=== PATIENT | female | born 1935 | race Hispanic/Latino ===

== ENCOUNTER 2018-05-14 09:56 | Emergency (ER) | payer MEDICARE ==
[2018-05-14 10:09] VITALS: O2SAT 98
--- NOTE | 2018-05-14 12:16 | C.PDOC ---
History Of Present Illness 82 y/o female, presents to the ED complaining of pain to the right knee along with swelling to the right lower leg, worsening for the past few days. States she fell onto her knee at home about 4 days ago. Was able to ambulate initially, but now swelling has worsened. Patient also has a history of severe peripheral vascular disease and non-healing venous stasis ulcers to bilateral feet. She follows with podiatry regularly and had an appointment today, which she missed in order to come here. Otherwise she denies any head trauma, neck pain, back pain, chest pain, SOB, nausea, vomiting, fever, or chills. Time Seen by Provider: 05/14/18 10:29 Chief Complaint (Nursing): Lower Extremity Problem/Injury History Per: Patient History/Exam Limitations: no limitations Onset/Duration Of Symptoms: Days Current Symptoms Are (Timing): Still Present Past Medical History Reviewed: Historical Data, Nursing Documentation, Vital Signs Vital Signs: Last Vital Signs Temp 97.9 F 05/14/18 10:08 Pulse 81 05/14/18 10:08 Resp 18 05/14/18 10:08 BP 146/84 05/14/18 10:08 Pulse Ox 98 05/14/18 10:08 - Medical History PMH: Crohn's Disease (ULCERATIVE COLITIS), Fractures (rt hip fracture s/p fall; had sx done at ), Malignancy (COLON) Denies: Chronic Kidney Disease Other PMH: Peripheral vascular disease - [facility] Procedures LAPAROSCOPIC CHOLECYSTECTOMY (08/30/13) LAPAROSCOPIC ROBOTIC ASSISTED PROCEDURE (08/30/13) OPEN REDUC-INT FIX FEMUR (06/16/13) PACKED CELL TRANSFUSION (06/16/13) Family History: States: No Known Family Hx - Social History Hx Tobacco Use: No Hx Alcohol Use: No Hx Substance Use: No - Immunization History Hx Tetanus Toxoid Vaccination: No Hx Influenza Vaccination: Yes Hx Pneumococcal Vaccination: Yes Review Of Systems Except As Marked, All Systems Reviewed And Found Negative. Constitutional: Negative for: Fever, Chills Cardiovascular: Negative for: Chest Pain Respiratory: Negative for: Shortness of Breath Gastrointestinal: Negative for: Nausea, Vomiting Musculoskeletal: Positive for: Leg Pain (right knee pain, right calf pain + swelling), Other (Increased difficulty walking secondary to swelling). Negative for: Neck Pain Skin: Positive for: Lesions (chronic ulcers to bilateral feet) Neurological: Negative for: Weakness, Numbness, Headache, Other (head trauma) Physical Exam - Physical Exam Appears: Non-toxic, No Acute Distress Skin: Warm, Dry Head: Atraumatic, Normacephalic Eye(s): bilateral: Normal Inspection, PERRL, EOMI Oral Mucosa: Moist Neck: Normal ROM Chest: Symmetrical Cardiovascular: Rhythm Regular, No Murmur Respiratory: Normal Breath Sounds, No Accessory Muscle Use, No Rhonchi, No Wheezing Gastrointestinal/Abdominal: Soft, No Tenderness, No Distention Extremity: Capillary Refill (less than 2 sec), Swelling (Edema throughout the right calf with tenderness, and scattered petechiae), Other (Right knee appears swollen, warm, and tender to palpation; Rabia boot dressings to bilateral feet) Pulses: Left Dorsalis Pedis: Normal, Right Dorsalis Pedis: Normal Neurological/Psych: Oriented x3, Normal Speech ED Course And Treatment O2 Sat by Pulse Oximetry: 98 (RA) Pulse Ox Interpretation: Normal Medical Decision Making Medical Decision Making: Impression: RLE swelling and pain, s/p fall last week Plan: --right knee x-ray --doppler study, RLE Patient also requesting to have dressings changed to feet, as she missed podiatry appt today. Discussed with patient's naval science teacher, Dr. Bal Gratn [phone] who recommends dressings be changed in the ED. Paged podiatry resident for dressing change and consult. 12:41 Doppler US is (-) for DVT. Awaiting podiatry resident. Disposition Counseled Patient/Family Regarding: Studies Performed, Diagnosis, Need For Followup, Rx Given - Disposition Referrals: Jhonatan Marin III, MD [Staff Provider] - Disposition: HOME/ ROUTINE Disposition Time: 14:43 Condition: GUARDED Additional Instructions: Rerst, elevate and ice the affected leg ass indicated. Take the Naprosyn for pain. Take with food. Follow up with your doctor and with Orthopedics. Prescriptions: Naproxen [Naprosyn] 1 tab PO BID PRN #25 tab PRN Reason: Pain Naproxen [Naprosyn] 1 tab PO BID PRN #25 tab PRN Reason: Pain Instructions: Knee Sprain (DC) Forms: [employer] (Japanese), General Discharge Instructions - POA Present On Arrival: None - Clinical Impression Clinical Impression: Joint pain, Joint swelling, Right knee sprain - Scribe Statement The provider has reviewed the documentation as recorded by the Vonda Goodman Provider Attestation: All medical record entries made by the Vonda were at my direction and personally dictated by me. I have reviewed the chart and agree that the record accurately reflects my personal performance of the history, physical exam, medical decision making, and the department course for this patient. I have also personally directed, reviewed, and agree with the discharge instructions and disposition.
--- NOTE | 2018-05-14 13:21 | CP.PCM.CON ---
History of Present Illness - History of Present Illness History of Present Illness: Podiatry - Dr. Bowser 82 year old female patient seen in evaluated in ED at the request for podiatry consultation concerning bilateral ankle venous stasis ulcerations. Patient presented to ED due to a fall she sustained approximately 4 days ago, injuring her right knee; states she was able to ambulate with minimal pain however over the past 4 days swelling and pain have worsened which prompted her to present to ED. Patient was supposed to follow up with her outside dairy laboratory technician today to change her dressings but missed her appointment in order to present to ED for right knee evaluation. Patient states she has been seeing her dairy laboratory technician for unna boot dressing changes for the past 6 months. Patient states she has had the wounds to both ankles on and off for a few years, which she believes are improving. Patient reports mild pain to right ankle wound; denies any pain to left ankle wound. Patient has kept the dressings to both feet clean/dry/intact since her last podiatry appointment. Patient states she is scheduled to follow up with her dairy laboratory technician on Sunday for her next dressing change. Denies n/v/f/d/c/sob/gomez/cp. Review of Systems - Review of Systems All systems: reviewed and no additional remarkable complaints except (as per HPI) Past Patient History - Past Medical History & Family History Past Medical History?: Yes - Past Social History Smoking Status: Never Smoked - CARDIAC Hx Cardiac Disorders: No - PULMONARY Hx Respiratory Disorders: No - NEUROLOGICAL Hx Neurological Disorder: No - HEENT Hx HEENT Problems: No - RENAL Hx Chronic Kidney Disease: No - ENDOCRINE/METABOLIC Hx Endocrine Disorders: No - HEMATOLOGICAL/ONCOLOGICAL Hx Cancer: Yes - INTEGUMENTARY Hx Dermatological Problems: No - MUSCULOSKELETAL/RHEUMATOLOGICAL Hx Fractures: Yes (rt hip fracture s/p fall; had sx done at ) - GASTROINTESTINAL Hx Crohn's Disease: Yes (ULCERATIVE COLITIS) - GENITOURINARY/GYNECOLOGICAL Hx Incontinence: Yes - PSYCHIATRIC Hx Substance Use: No - SURGICAL HISTORY Hx Orthopedic Surgery: Yes (RIGHT HIP) - ANESTHESIA Hx Anesthesia: Yes Hx Anesthesia Reactions: No Hx Malignant Hyperthermia: No Meds Home Medications: Home Medication List Medication Instructions Recorded Confirmed Type Naproxen [Naprosyn] 1 tab PO BID PRN #25 tab 05/14/18 Rx Naproxen [Naprosyn] 1 tab PO BID PRN #25 tab 05/14/18 Rx Allergies/Adverse Reactions: Allergies Allergy/AdvReac Type Severity Reaction Status Date / Time lidocaine Allergy Verified 05/14/18 10:07 Physical Exam - Constitutional Appears: Well, Non-toxic, No Acute Distress - Extremities Exam Additional comments: VASC: DP pulses weakly palpable 1/4 b/l. PT pulses nonpalpable b/l. CFT <3 seconds to all digits. Temperature gradient cool to cool b/l. No edema noted. NEURO: Gross sensation intact bilaterally. DERM: 4 x 3 cm ulceration noted to medial ankle b/l - ulcers are noted to have a 100% granular base with minimal erythema periwound; serous drainage present; no purulence; weeping present; no fluctuance; no undermining; no tunneling. Venous stasis dermatitis present to b/l legs. ORTHO: Pain on palpation right medial ankle wound. - Neurological Exam Neurological exam: Alert - Psychiatric Exam Psychiatric exam: Normal Affect, Normal Mood Results - Vital Signs Recent Vital Signs: Last Vital Signs Temp 97.9 F 05/14/18 10:08 Pulse 81 05/14/18 10:08 Resp 18 05/14/18 10:08 BP 146/84 05/14/18 10:08 Pulse Ox 98 05/14/18 12:42 Assessment & Plan - Assessment and Plan (Free Text) Assessment: 82F with venous stasis ulcerations b/l medial ankles, stable Plan: Patient seen and evaluated Discussed with attending, Dr. Bowser Wounds cleansed with saline and dressed with xeroform, DSD, SHREYAS Advised patient to follow up with her dairy laboratory technician this Sunday for unna boot dressing change Wounds appear stable at this time Pain control per ED Stable for dc per podiatric standpoint Thank you for the consult
--- NOTE | 2018-05-14 13:47 | RAD ---
Date of service: 05/14/2018 PROCEDURE: Right Knee Radiographs. HISTORY: fall, knee pain and swelling COMPARISON: None. FINDINGS: BONES: Current study reveals the inferior aspect of a intramedullary fixation kirsten within the distal left femur all diaphysis and Bushra metaphysis which is fixed distally by 2 fully threaded transversely oriented fixation screws. Hardware appears intact without evidence of loosening or infection.. No evidence of acute displaced fracture nor dislocation. Mild diffuse demineralization felt to be present. JOINTS: Joint spaces relatively preserved. JOINT EFFUSION: Small suprapatellar joint effusion is felt to be present. OTHER FINDINGS: Mild diffuse edema-infiltration changes of the subcutaneous tissues-nonspecific. IMPRESSION: No evidence of acute displaced fracture nor dislocation. Mild diffuse demineralization. Distal of aspect of an intra medullary fixation kirsten and fixation screws within the distal femur is intact of without evidence of hardware failure. Mild diffuse edema/infiltration changes subcutaneous tissues-nonspecific; rule out the sequela of trauma, infection such as cellulitis or underlying vascular etiology.
[2018-05-14 15:38] VITALS: BP 156/81; PULSE 84; RESP 16; TEMP 98.1
--- NOTE | 2018-05-15 12:06 | VASCLAB ---
Date of service: 05/14/2018 PROCEDURE: Right Lower Extremity Venous Duplex Exam. HISTORY: Calf swelling, pain. PRIORS: None. TECHNIQUE: Right common femoral, femoral, popliteal and posterior tibial, peroneal and great saphenous veins were evaluated. Flow was assessed with color Doppler, compressibility, assessment of phasic flow and augmentation response. Report prepared by MEENA Nagel FINDINGS: RIGHT: 1. Common Femoral Vein: 1.1. Compressibility - Fully compressible: Thrombus - None: Flow - Phasic: Augmentation -Normal: Reflux - None. 2. Femoral Vein: 2.1. Compressibility - Fully compressible: Thrombus - None: Flow - Phasic: Augmentation -Normal: Reflux - None. 3. Popliteal Vein: 3.1. Compressibility - Fully compressible: Thrombus - None: Flow - Phasic: Augmentation -Normal: Reflux - None. 4. Posterior Tibial Vein: 4.1. Compressibility - Fully compressible: Thrombus - None: Flow - Phasic: Augmentation -Normal: Reflux - None. 5. Peroneal Vein: 5.1. Compressibility - Fully compressible: Thrombus - None: Flow - Phasic: Augmentation -Normal: Reflux - None. 6. Great Saphenous Vein: 6.1. Compressibility - Fully compressible: Thrombus -None: Flow - Phasic: Augmentation - Normal: Reflux - None. OTHER FINDINGS: IMPRESSION: No evidence of deep or superficial vein thrombosis of the right lower extremity with excellent venous flow. Normal valve function noted of the right side. Normal venous flow noted in the left common femoral vein.
== END 2018-05-14 16:36 | disposition home or self-care (01) ==
LOC: C.ER 09:56
DX: S83.91XA Sprain of unspecified site of right knee, initial encounter (principal); W18.30XA Fall on same level, unspecified, initial encounter; Y92.009 Unspecified place in unspecified non-institutional (private) residence as the place of occurrence of the external cause; L97.329 Non-pressure chronic ulcer of left ankle with unspecified severity; L97.319 Non-pressure chronic ulcer of right ankle with unspecified severity

== ENCOUNTER 2018-06-10 12:50 | Emergency (ER) | payer MEDICARE ==
--- NOTE | 2018-06-10 14:04 | C.PDOC ---
History Of Present Illness 82 year old female with a history of PVD presents to the emergency department with complaints of bilateral foot pain. Patient states that she normally gets evaluated at a foot and ankle clinic in [place] for chronic foot ulcers but has been unable to go for dressing changes due to the holidays. patient denies fever and chills. pt does not endorse any back pain. when asked about what she mentioned in traige. she states "she always has back pain" Time Seen by Provider: 06/10/18 13:02 Chief Complaint (Nursing): Lower Extremity Problem/Injury History Per: Patient History/Exam Limitations: no limitations Onset/Duration Of Symptoms: Other (2 weeks) Current Symptoms Are (Timing): Still Present - Ankle/Foot Description Of Injury: Other (chronic ulcers) Past Medical History Reviewed: Historical Data, Nursing Documentation, Vital Signs Vital Signs: Last Vital Signs Temp 97.6 F 06/10/18 12:56 Pulse 79 06/10/18 12:56 Resp 16 06/10/18 12:56 BP 135/72 06/10/18 12:56 Pulse Ox 100 06/10/18 12:56 - Medical History PMH: Crohn's Disease (ULCERATIVE COLITIS), Fractures (rt hip fracture s/p fall; had sx done at ), Malignancy (COLON) Denies: Chronic Kidney Disease Other PMH: Peripheral Vascular Disease - [facility] Procedures LAPAROSCOPIC CHOLECYSTECTOMY (08/30/13) LAPAROSCOPIC ROBOTIC ASSISTED PROCEDURE (08/30/13) OPEN REDUC-INT FIX FEMUR (06/16/13) PACKED CELL TRANSFUSION (06/16/13) Family History: States: Unknown Family Hx - Social History Hx Tobacco Use: No Hx Alcohol Use: No Hx Substance Use: No - Immunization History Hx Tetanus Toxoid Vaccination: No Hx Influenza Vaccination: Yes Hx Pneumococcal Vaccination: Yes Review Of Systems Except As Marked, All Systems Reviewed And Found Negative. Constitutional: Negative for: Fever, Chills Musculoskeletal: Positive for: Foot Pain (bilaterally) Physical Exam - Physical Exam Appears: Non-toxic, No Acute Distress Skin: Normal Color, Warm, Dry Head: Atraumatic, Normacephalic Eye(s): bilateral: Normal Inspection, PERRL, EOMI Neck: Normal, Supple Chest: Symmetrical, No Tenderness Cardiovascular: Rhythm Regular, No Murmur Respiratory: Normal Breath Sounds, No Rales, No Rhonchi, No Wheezing Extremity: Normal ROM, Other (ulcers to the feet bilaterally, chronic appearing no purlent dc) Pulses: Left Dorsalis Pedis: Normal, Right Dorsalis Pedis: Normal Neurological/Psych: Oriented x3, Normal Speech, Normal Cognition ED Course And Treatment O2 Sat by Pulse Oximetry: 100 (RA) Pulse Ox Interpretation: Normal Medical Decision Making Medical Decision Making: here for podiatriy eval. states seen previouysly for similar. seen by podiatry. will eval pt. no back pain 320: seen by podiatry dressing cahgned pt will f/u outpt Disposition - Disposition Referrals: [facility] [Outside] [facility] [Outside] Podiatry Clinic [Outside] Disposition: HOME/ ROUTINE Disposition Time: 15:24 Condition: STABLE Additional Instructions: follow up with residence leasing agent. return to er with any worsening symptoms or concerns. Instructions: Pressure Sores, Pressure Sores (DC) Forms: [employer] ([place] Islander) - Clinical Impression Clinical Impression: Chronic ulcer of ankle - Scribe Statement The provider has reviewed the documentation as recorded by the Scribe (Jevon Ring) Provider Attestation: All medical record entries made by the Scribe were at my direction and personally dictated by me. I have reviewed the chart and agree that the record accurately reflects my personal performance of the history, physical exam, medical decision making, and the department course for this patient. I have also personally directed, reviewed, and agree with the discharge instructions and disposition.
[2018-06-10 15:11] VITALS: BP 146/79; PULSE 78; RESP 18; TEMP 97.9
[2018-06-10 15:24] VITALS: O2SAT 100
== END 2018-06-10 17:01 | disposition home or self-care (01) ==
LOC: C.ER 12:50
DX: L97.329 Non-pressure chronic ulcer of left ankle with unspecified severity (principal); L97.319 Non-pressure chronic ulcer of right ankle with unspecified severity

== ENCOUNTER 2018-07-05 08:34 | Inpatient (IN) | payer MEDICARE ==
--- NOTE | 2018-07-05 10:26 | C.PDOC ---
History Of Present Illness 82 y/o female pt otherwise well presents to the ER sent by Dr. Corey for management of non-healing ulcers on her b/l ankles. Pt denies DM, smoking and is not aware of any peripheral vascular diseases. Pt reports she is not in pain but her feet are now starting to cause her problems. Time Seen by Provider: 07/05/18 08:50 Chief Complaint (Nursing): Medical Clearance History Per: Patient History/Exam Limitations: no limitations Onset/Duration Of Symptoms: Days Current Symptoms Are (Timing): Still Present Past Medical History Reviewed: Historical Data, Nursing Documentation, Vital Signs Vital Signs: Last Vital Signs Temp 97.3 F L 07/05/18 08:44 Pulse 76 07/05/18 08:44 Resp 18 07/05/18 08:44 BP 138/82 07/05/18 08:44 Pulse Ox 100 07/05/18 08:44 - Medical History PMH: Crohn's Disease (ULCERATIVE COLITIS), Fractures (rt hip fracture s/p fall; had sx done at ), Malignancy (COLON) - [facility] Procedures LAPAROSCOPIC CHOLECYSTECTOMY (08/30/13) LAPAROSCOPIC ROBOTIC ASSISTED PROCEDURE (08/30/13) OPEN REDUC-INT FIX FEMUR (06/16/13) PACKED CELL TRANSFUSION (06/16/13) Family History: States: Unknown Family Hx - Social History Hx Tobacco Use: No Hx Alcohol Use: No Hx Substance Use: No - Immunization History Hx Tetanus Toxoid Vaccination: No Hx Influenza Vaccination: Yes Hx Pneumococcal Vaccination: No Review Of Systems Except As Marked, All Systems Reviewed And Found Negative. Constitutional: Negative for: Other (DM, smoking, unaware of any peripheral vascular dieases ) Musculoskeletal: Positive for: Other (non-healing ulcer on b/l ankles ) Physical Exam - Physical Exam Appears: Non-toxic, No Acute Distress, Other (frail and cachetic ) Skin: Warm, Dry Head: Normacephalic Eye(s): bilateral: Normal Inspection Chest: Symmetrical Cardiovascular: Rhythm Regular Respiratory: Normal Breath Sounds Gastrointestinal/Abdominal: Soft, No Tenderness, Other (scaphoid belly ) Back: Other (kyphosis ) Extremity: Normal ROM (x4), No Deformity, No Swelling, Other (b/l knee down: scaly, dry, red and flaky skin; deep non-healing ulcer to both medial ankles; pulse difficult to palpate ) Neurological/Psych: Oriented x3, Normal Speech, Normal Motor, Normal Sensation ED Course And Treatment - Laboratory Results Result Diagrams: 07/05/18 10:33 07/05/18 11:24 ECG: Interpreted By Me, Viewed By Me ECG Rhythm: Sinus Rhythm ECG Interpretation: Normal Interpretation Of ECG: LVH; no ST elevation Rate From EC O2 Sat by Pulse Oximetry: 100 (RA) Pulse Ox Interpretation: Normal Medical Decision Making Medical Decision Making: Plans: -- EKG -- chem labs -- blood work Discuss case with podiatry resident who will see her. Consult with Dr. Bowser. Pending admittance to hospital Disposition Discussed With Dr.: Toni Johnston Doctor Will See Patient In The: Hospital Counseled Patient/Family Regarding: Studies Performed, Diagnosis - Disposition Disposition: HOSPITALIZED Disposition Time: 10:55 Condition: STABLE - POA Present On Arrival: None - Clinical Impression Clinical Impression: Skin lesion, Cellulitis, Non healing left heel wound, Non-healing ulcer of right ankle - Scribe Statement The provider has reviewed the documentation as recorded by the Vonda Hogan Do Provider Attestation: All medical record entries made by the Scribe were at my direction and personally dictated by me. I have reviewed the chart and agree that the record accurately reflects my personal performance of the history, physical exam, medical decision making, and the department course for this patient. I have also personally directed, reviewed, and agree with the discharge instructions and disposition. Decision To Admit - Pt Status Changed To: Hospital Disposition Of: Inpatient - Admit Certification Admit to Inpatient:: After my assessment, the patient will require hospitalization for at least two midnights. This is because of the severity of symptoms shown, intensity of services needed, and/or the medical risk in this patient being treated as an outpatient. - InPatient: Physician Admission Certification: I certify that this patient requires 2 or m ore midnights of care for the following reason:: non healing ulcer, may need OR - . Bed Request Type: Regular Admitting Physician: Toni Johnston Patient Diagnosis: Skin lesion, Cellulitis, Non healing left heel wound, Non-healing ulcer of right ankle
[2018-07-05 10:38] LABS: BASO # 0.1 K/uL (0.0-0.2); BASO % 0.8 % (0.0-2.0); EOS # 0.2 K/uL (0.0-0.7); EOS % 2.3 % (0.0-4.0); HEMOGLOBIN 12.5 g/dL (11.0-16.0); LYMPH # 1.3 K/uL (1.0-4.3); LYMPH % 14.7 % (20.0-40.0); MEAN CELL VOLUME 95.5 fL (81.0-99.0); MEAN CORPUSCULAR HEMOGLOBIN 31.5 pg (27.0-31.0); MONO # 0.4 K/uL (0.0-0.8); MONO % 4.4 % (0.0-10.0); NEUT # 6.6 K/uL (1.8-7.0); NEUT % 77.8 % (50.0-75.0); RBC 3.96 Mil/uL (3.80-5.20); RED CELL DISTRIBUTION WIDTH 13.9 % (11.5-14.5); WHITE BLOOD COUNT 8.5 K/uL (4.8-10.8)
[2018-07-05 10:43] LABS: INR 1.1; PROTHROMBIN TIME 11.5 SECONDS (9.7-12.2)
[2018-07-05 11:42] LABS: ALB/GLOB RATIO 1.4 (1.0-2.1); ALBUMIN 3.9 g/dL (3.5-5.0); ALT/SGPT 16 U/L (9-52); AST/SGOT 32 U/L (14-36); BLOOD UREA NITROGEN 15 mg/dL (7-17); CALCIUM 9.1 mg/dl (8.6-10.4); GFR NON-AFRICAN AMERICAN > 60
--- NOTE | 2018-07-05 12:02 | CP.PCM.CON ---
History of Present Illness - History of Present Illness History of Present Illness: Podiatry Consult Note for Dr. Bowser 82F with no known PMH seen in ED for b/l LE wounds. Patient states that she has had the wounds for over a year and has seen multiple podiatrists for woundcare. Most recently she saw Dr. Corey who refers her here today for further evaluation. 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 She denies any malodor or drainage from the wounds but does not that they are often red. She is AAO x 3 and NAD. She denies any further pedal complaints at this time. Denies any recent N/V/F/C/CP/SOB Review of Systems - Review of Systems All systems: reviewed and no additional remarkable complaints except Review of Systems: as per HPI Past Patient History - Past Medical History & Family History Past Medical History?: Yes - Past Social History Smoking Status: Former Smoker - CARDIAC Hx Cardiac Disorders: No - PULMONARY Hx Respiratory Disorders: No - NEUROLOGICAL Hx Neurological Disorder: No - HEENT Hx HEENT Problems: No - ENDOCRINE/METABOLIC Hx Endocrine Disorders: No - HEMATOLOGICAL/ONCOLOGICAL Hx Cancer: Yes - INTEGUMENTARY Hx Dermatological Problems: No - MUSCULOSKELETAL/RHEUMATOLOGICAL Hx Fractures: Yes (rt hip fracture s/p fall; had sx done at ) - GASTROINTESTINAL Hx Crohn's Disease: Yes (ULCERATIVE COLITIS) - GENITOURINARY/GYNECOLOGICAL Hx Genitourinary Disorders: Yes Hx Incontinence: Yes - PSYCHIATRIC Hx Substance Use: No - SURGICAL HISTORY Hx Surgeries: Yes Hx Orthopedic Surgery: Yes (RIGHT HIP) Other/Comment: STOMACH RESECTION - ANESTHESIA Hx Anesthesia: Yes Hx Anesthesia Reactions: No Hx Malignant Hyperthermia: No Meds Allergies/Adverse Reactions: Allergies Allergy/AdvReac Type Severity Reaction Status Date / Time lidocaine Allergy Verified 07/05/18 08:49 Physical Exam - Constitutional Appears: Well, Non-toxic, No Acute Distress - Extremities Exam Additional comments: LE focused exam Vasc: DP/PT pulses faintly palpable to b/l LE. Skin temperature warm to warm from proximal to distal. CFT < 3 seconds to all digits. No edema noted b/l Neuro: Epicritic and protective sensation grossly intact b/l Derm: Left leg- Diffuse erythema noted to left leg and foot with multiple small scabs and wounds noted circumferentially around the leg. 2 cm x 4 cm x 0.1 cm ulceration noted to medial malleolus consistent with venous stasis ulceration. Wound base is fibrogranular with minimal serous drainage appreciated. No malodor present. Right leg- Diffuse erythema noted to right leg and foot with multiple small scabs and wounds noted circumferentially around the leg. 2 cm x 4 cm x 0.1 cm ulceration noted to medial malleolus consistent with venous stasis ulceration. Wound base is fibrogranular with an approximately 1 cm x 1 cm patch of gree n/yellow fibrous tissue. Minimal serous drainage appreciated. No malodor present. No tracking, tunneling, undermining or probe to bone appreciated at either ulceration site MSK: No pain on palpation of either ulceration site. ROM to all major joints WNL given age and body habitus. MMT to all major muscle groups WNL given age and body habitus - Neurological Exam Neurological exam: Alert, Oriented x3 - Psychiatric Exam Psychiatric exam: Normal Affect, Normal Mood Results - Vital Signs Recent Vital Signs: Last Vital Signs Temp 97.9 F 07/05/18 11:23 Pulse 72 07/05/18 11:23 Resp 18 07/05/18 11:23 BP 170/70 H 07/05/18 11:23 Pulse Ox 100 07/05/18 11:23 - Labs Result Diagrams: 07/05/18 10:33 07/05/18 11:24 Labs: Laboratory Results - last 24 hr 07/05/18 07/05/18 07/05/18 10:33 10:33 11:24 WBC 8.5 D RBC 3.96 Hgb 12.5 Hct 37.8 MCV 95.5 D MCH 31.5 H MCHC 33.0 RDW 13.9 Plt Count 229 MPV 11.0 Neut % (Auto) 77.8 H Lymph % (Auto) 14.7 L [place] % (Auto) 4.4 Eos % (Auto) 2.3 Baso % (Auto) 0.8 Neut # (Auto) 6.6 Lymph # (Auto) 1.3 [place] # (Auto) 0.4 Eos # (Auto) 0.2 Baso # (Auto) 0.1 PT 11.5 INR 1.1 Sodium 136 Potassium 4.1 Chloride 99 Carbon Dioxide 32 H Anion Gap 9 L BUN 15 Creatinine 0.5 L Est GFR ( Amer) > 60 Est GFR (Non-Af Amer) > 60 Random Glucose 119 H D Calcium 9.1 Total Bilirubin 0.5 AST 32 ALT 16 Alkaline Phosphatase 128 H Total Protein 6.7 Albumin 3.9 Globulin 2.8 Albumin/Globulin Ratio 1.4 Assessment & Plan - Assessment and Plan (Free Text) Assessment: 82F seen in ED for bilateral venous stasis ulcerations to medial malleolus Plan: Patient seen and evaluated Plan discussed with Dr. Bowser Afebrile, absent leukocytosis Wound cx of right ankle taken: pending Infectious disease consult placed Vascular consult placed Wounds both dressed with Telfa, ABD, DSD, SHREYAS No plan for surgical intervention at this time Podiatry will continue to follow while patient in house - Date & Time Date: 07/05/18 Time: 12:13
[2018-07-05 12:05] VITALS: RESP 20
--- NOTE | 2018-07-05 13:04 | CP.PCM.HP ---
History of Present Illness - History of Present Illness History of Present Illness: Medicine History and Physical Exam Note for Dr. Johnston Ms. Montague is an 82-year-old F with PMH of non-healing ulcer of the ankle lory aterally and cellulitis presents with "worsening foot problems and swelling in both of my feet." Patient states it has been increasingly difficult for her to walk and "get around." Patient reports she has dealt with non-healing ulcers in the past, and she has been followed by a physician on [facility] (Patient does not recall name of physician) for a couple of months where she gets wound care regularly. Furthermore, the Patient and was recently seen by Dr. Corey's who sent her to the ED today to get her feet evaluated. Patient admits to mild swelling and non-healing ulcers, however Patient otherwise denies bleeding, oozing, itching, chest pain, shortness of breath, numbness/tingling in lower extremity, weakness, fatigue, headache, nausea, vomiting, fever and/or chills. Note: Patient walks with cane. PMH: Patient denies (Patient was seen here in 2013 for abdominal pain and was diagnosed with pancreatitis) PSxH: R hip surgery (2013) Social History: Patient denies, tobacco, ETOH, and/or recreational drugs Patient lives in senior citizen home Meds: Patient denies Allergies: Lidocaine Present on Admission - Present on Admission Any Indicators Present on Admission: No History of DVT/PE: No History of Uncontrolled Diabetes: No Urinary Catheter: No Decubitus Ulcer Present: No Review of Systems - Constitutional Constitutional: absent: Anorexia, Chills, Fatigue, Fever, Frequent Falls, Headache, Malaise, Night Sweats - EENT Eyes: absent: Loss of Vision Nose/Mouth/Throat: absent: Nasal Congestion, Sore Throat - Cardiovascular Cardiovascular: Leg Ulcers (bilateral ankle ulcers). absent: Chest Pain, Dyspnea, Lightheadedness - Respiratory Respiratory: absent: Cough, Dyspnea, Wheezing - Gastrointestinal Gastrointestinal: absent: Abdominal Pain, Diarrhea, Nausea, Vomiting - Genitourinary Genitourinary: absent: Change in Urinary Stream, Difficulty Urinating, Dysuria - Musculoskeletal Musculoskeletal: As Per HPI - Neurological Neurological: absent: Abnormal Gait, Dizziness, Numbness, Focal Weakness, Memory Loss, Syncope - Psychiatric Psychiatric: absent: Anxiety Past Patient History - Past Medical History & Family History Past Medical History?: Yes - Past Social History Smoking Status: Former Smoker - CARDIAC Hx Cardiac Disorders: No - PULMONARY Hx Respiratory Disorders: No - NEUROLOGICAL Hx Neurological Disorder: No - HEENT Hx HEENT Problems: No - ENDOCRINE/METABOLIC Hx Endocrine Disorders: No - HEMATOLOGICAL/ONCOLOGICAL Hx Cancer: Yes - INTEGUMENTARY Hx Dermatological Problems: No - MUSCULOSKELETAL/RHEUMATOLOGICAL Hx Fractures: Yes (rt hip fracture s/p fall; had sx done at ) - GASTROINTESTINAL Hx Crohn's Disease: Yes (ULCERATIVE COLITIS) - GENITOURINARY/GYNECOLOGICAL Hx Genitourinary Disorders: Yes Hx Incontinence: Yes - PSYCHIATRIC Hx Substance Use: No - SURGICAL HISTORY Hx Surgeries: Yes Hx Orthopedic Surgery: Yes (RIGHT HIP) Other/Comment: STOMACH RESECTION - ANESTHESIA Hx Anesthesia: Yes Hx Anesthesia Reactions: No Hx Malignant Hyperthermia: No Meds Allergies/Adverse Reactions: Allergies Allergy/AdvReac Type Severity Reaction Status Date / Time lidocaine Allergy Verified 07/05/18 08:49 Physical Exam - Constitutional Appears: Non-toxic, No Acute Distress, Cachectic - Head Exam Head Exam: ATRAUMATIC, NORMAL INSPECTION, NORMOCEPHALIC - Eye Exam Eye Exam: EOMI - ENT Exam ENT Exam: Mucous Membranes Moist, Normal Exam - Neck Exam Neck exam: Positive for: Full Rom, Normal Inspection. Negative for: Lymphadenopathy, Tenderness - Respiratory Exam Respiratory Exam: absent: Accessory Muscle Use, Chest Wall Tenderness, Decreased Breath Sounds, Wheezes - Cardiovascular Exam Cardiovascular Exam: REGULAR RHYTHM, +S1, +S2. absent: Tachycardia - GI/Abdominal Exam GI & Abdominal Exam: Normal Bowel Sounds, Soft. absent: Distended, Firm, Guard ing, Tenderness - Extremities Exam Extremities exam: Positive for: normal capillary refill, pedal pulses present. Negative for: normal inspection, tenderness Additional comments: dry bilaterally, flaky bilaterally. +1 edema bilaterally superficial, shallow ulcer: with irregular flat margins, granulation tissue and exudate present bilaterally at the medial malleolus - Neurological Exam Neurological exam: Alert, Oriented x3 - Psychiatric Exam Psychiatric exam: Normal Affect, Normal Mood - Skin Skin Exam: Dry, Normal Color, Warm Results - Vital Signs Recent Vital Signs: Last Vital Signs Temp 97.3 F L 07/05/18 12:04 Pulse 65 07/05/18 12:04 Resp 20 07/05/18 12:04 BP 150/66 07/05/18 12:04 Pulse Ox 100 07/05/18 12:41 - Labs Result Diagrams: 07/05/18 10:33 07/05/18 11:24 Labs: Laboratory Results - last 24 hr 07/05/18 07/05/18 07/05/18 10:33 10:33 11:24 WBC 8.5 D RBC 3.96 Hgb 12.5 Hct 37.8 MCV 95.5 D MCH 31.5 H MCHC 33.0 RDW 13.9 Plt Count 229 MPV 11.0 Neut % (Auto) 77.8 H Lymph % (Auto) 14.7 L [place] % (Auto) 4.4 Eos % (Auto) 2.3 Baso % (Auto) 0.8 Neut # (Auto) 6.6 Lymph # (Auto) 1.3 [place] # (Auto) 0.4 Eos # (Auto) 0.2 Baso # (Auto) 0.1 PT 11.5 INR 1.1 Sodium 136 Potassium 4.1 Chloride 99 Carbon Dioxide 32 H Anion Gap 9 L BUN 15 Creatinine 0.5 L Est GFR ( Amer) > 60 Est GFR (Non-Af Amer) > 60 Random Glucose 119 H D Calcium 9.1 Total Bilirubin 0.5 AST 32 ALT 16 Alkaline Phosphatase 128 H Total Protein 6.7 Albumin 3.9 Globulin 2.8 Albumin/Globulin Ratio 1.4 Assessment & Plan - Assessment and Plan (Free Text) Assessment: Assessment Ms. Montague is an 82-year-old F with PMH of non-healing ulcer of the ankle bilaterally and cellulitis presents with "worsening foot problems and swelling in both of my feet." Patient subsequently admitted for non-healing chronic vascu lar ulcers and failed out-patient treatment of bilateral leg ulcers. Plan: 1. Non- Healing Chronic Vascular Ulcers - Podiatry consulted (Dr. Bowser); rec. appreciated - Vascular surgery consulted (Dr. Davis); rec. appreciated - ID consulted (Dr. Copeland); rec. appreciated - SCD contraindicated - Pending recommendations from ID and Vascular Surgery - F/U Blood culture - F/U Wound culture - F/U Urinalysis 2. Failed Out-Patient Treatment of Bilateral LE Ulcers - Follow-up with ID recommendations - Afebrile - No leukocytosis - F/U lipid panel - F/U TSH - F/U CMP, CBC - F/U Vitamin D 3. PPx: GI: not indicated at this time DVT: SCD contraindicated; on Heparin 5,000 units SC Q8 Patient was seen and evaluated with Dr. Vickie Hernández PGY1
--- NOTE | 2018-07-05 14:07 | CP.PCM.CON ---
History of Present Illness - History of Present Illness History of Present Illness: Surgery consult note for Dr. Davis. 82 F w/ no PMhx presented to ED following referral by Dr. Corey for b/l LE wound care. Patient states she has had these wounds/ dry feet for the last several months. She states she visits the foot doctor every few months and the wound care management. Patient denies any pain, tingling, numbness in feet. She states her feet are extremely dry, but is able to ambulate her normal amount. Patient denies headaches, vision changes, chest pain, SOB, abdominal pain, diarrhea, vomiting, fevers, chills. Surgery consulted for vascular status assessment. PMHx: None Meds: Multivitamins PSHx: Denies Allergies: Lidocaine SHx: Denies tobacco, ETOH, drug use Review of Systems - Review of Systems All systems: reviewed and no additional remarkable complaints except - Constitutional Constitutional: As Per HPI Past Patient History - Past Medical History & Family History Past Medical History?: Yes - Past Social History Smoking Status: Former Smoker - CARDIAC Hx Cardiac Disorders: No - PULMONARY Hx Respiratory Disorders: No - NEUROLOGICAL Hx Neurological Disorder: No - HEENT Hx HEENT Problems: No - ENDOCRINE/METABOLIC Hx Endocrine Disorders: No - HEMATOLOGICAL/ONCOLOGICAL Hx Cancer: Yes - INTEGUMENTARY Hx Dermatological Problems: No - MUSCULOSKELETAL/RHEUMATOLOGICAL Hx Fractures: Yes (rt hip fracture s/p fall; had sx done at ) - GASTROINTESTINAL Hx Crohn's Disease: Yes (ULCERATIVE COLITIS) - GENITOURINARY/GYNECOLOGICAL Hx Genitourinary Disorders: Yes Hx Incontinence: Yes - PSYCHIATRIC Hx Substance Use: No - SURGICAL HISTORY Hx Surgeries: Yes Hx Orthopedic Surgery: Yes (RIGHT HIP) Other/Comment: STOMACH RESECTION - ANESTHESIA Hx Anesthesia: Yes Hx Anesthesia Reactions: No Hx Malignant Hyperthermia: No Meds Allergies/Adverse Reactions: Allergies Allergy/AdvReac Type Severity Reaction Status Date / Time lidocaine Allergy Verified 07/05/18 08:49 - Medications Medications: Current Medications Heparin Sodium (Porcine) (Heparin) 5,000 units SC Q8 MIGNON Last Admin: 07/05/18 13:50 Dose: 5,000 units Physical Exam - Constitutional Appears: Cachectic - Head Exam Head Exam: NORMAL INSPECTION - Eye Exam Eye Exam: Normal appearance - ENT Exam ENT Exam: Mucous Membranes Moist - Respiratory Exam Respiratory Exam: NORMAL BREATHING PATTERN. absent: Rhonchi, Wheezes, Stridor - Cardiovascular Exam Cardiovascular Exam: +S1, +S2 - GI/Abdominal Exam GI & Abdominal Exam: Normal Bowel Sounds, Soft - Extremities Exam Additional comments: B/L lower extremity ulcers at medial malleolus DP pulses palpable Erythema Minimal drain from ulcers - Neurological Exam Neurological exam: Alert, Oriented x3 - Skin Skin Exam: Erythema, Warm Results - Vital Signs Recent Vital Signs: Last Vital Signs Temp 97.3 F L 07/05/18 12:04 Pulse 65 07/05/18 12:04 Resp 20 07/05/18 12:04 BP 150/66 07/05/18 12:04 Pulse Ox 100 07/05/18 12:41 - Labs Result Diagrams: 07/05/18 10:33 07/05/18 11:24 Labs: Laboratory Results - last 24 hr 07/05/18 07/05/18 07/05/18 10:33 10:33 11:24 WBC 8.5 D RBC 3.96 Hgb 12.5 Hct 37.8 MCV 95.5 D MCH 31.5 H MCHC 33.0 RDW 13.9 Plt Count 229 MPV 11.0 Neut % (Auto) 77.8 H Lymph % (Auto) 14.7 L [place] % (Auto) 4.4 Eos % (Auto) 2.3 Baso % (Auto) 0.8 Neut # (Auto) 6.6 Lymph # (Auto) 1.3 [place] # (Auto) 0.4 Eos # (Auto) 0.2 Baso # (Auto) 0.1 PT 11.5 INR 1.1 Sodium 136 Potassium 4.1 Chloride 99 Carbon Dioxide 32 H Anion Gap 9 L BUN 15 Creatinine 0.5 L Est GFR ( Amer) > 60 Est GFR (Non-Af Amer) > 60 Random Glucose 119 H D Calcium 9.1 Total Bilirubin 0.5 AST 32 ALT 16 Alkaline Phosphatase 128 H Total Protein 6.7 Albumin 3.9 Globulin 2.8 Albumin/Globulin Ratio 1.4 Assessment & Plan - Assessment and Plan (Free Text) Assessment: 82 F w/ b/l LE ulcerations at medial malleolus consulted for vascular status Plan: - F/u BAUTISTA - D/w Dr. Davis, Nima Barajas, PGY1
[2018-07-05 14:52] LABS: URINE BILIRUBIN NEGATIVE (NEGATIVE); URINE BLOOD 1+ (NEGATIVE); URINE CLARITY Clear (Clear); URINE COLOR Straw (YELLOW); URINE GLUCOSE (UA) NORMAL (Normal); URINE LEUKOCYTE ESTERASE NEG Leu/uL (Negative); URINE PROTEIN NEGATIVE (NEGATIVE); URINE UROBILINOGEN NORMAL mg/dL (0.2-1.0)
[2018-07-05] MEDS: Piperacill/Tazo 3.375gm in Dex 3.375 GM/50 ML BAG IVPB SCH ×2 (16:24→21:53)
--- NOTE | 2018-07-05 19:17 | CP.PCM.CON ---
History of Present Illness - History of Present Illness History of Present Illness: 82-year-old F with PMH of non-healing ulcer of the ankle bilaterally and cellulitis She was recently seen by Dr. Corey's who sent her to the ED today to get her feet evaluated. Patient admits to mild swelling and non-healing ulcers, PMH: Patient denies was diagnosed with pancreatitis 2013 PSxH: R hip surgery (2013) Social History: Patient denies, tobacco, ETOH, and/or recreational drugs Meds: Patient denies Allergies: Lidocaine Review of Systems - Review of Systems All systems: reviewed and no additional remarkable complaints except - Constitutional Constitutional: As Per HPI - EENT Eyes: absent: As Per HPI, Blind Spots, Blurred Vision, Change in Vision, Decreased Night Vision, Diplopia, Discharge, Dry Eye, Exophthalmos, Floaters, Irritation, Itchy Eyes, Loss of Peripheral Vision, Pain, Photophobia, Requires Corrective Lenses, Sees Flashes, Spots in Vision, Tunnel Vision, Other Visual Disturbances, Loss of Vision, Other Ears: absent: As Per HPI, Decreased Hearing, Ear Discharge, Ear Pain, Tinnitus, Abnormal Hearing, Disequilibrium, Dizziness, Other Nose/Mouth/Throat: absent: As Per HPI, Epistaxis, Nasal Congestion, Nasal Discharge, Nasal Obstruction, Nasal Trauma, Nose Pain, Post Nasal Drip, Sinus Pain, Sinus Pressure, Bleeding Gums, Change in Voice, Dental Pain, Dry Mouth, Dysphagia, Halitosis, Hoarsness, Lip Swelling, Mouth Lesions, Mouth Pain, Odynophagia, Sore Throat, Throat Swelling, Tongue Swelling, Facial Pain, Neck Pain, Neck Mass, Other - Breasts Breasts: absent: As Per HPI, Change in Shape, Mass, Pain, Nipple Discharge, Nipple Inversion, Skin Changes, Swelling, Other - Cardiovascular Cardiovascular: absent: As Per HPI, Acrocyanosis, Chest Pain, Chest Pain at Rest, Chest Pain with Activity, Claudication, Diaphoresis, Dyspnea, Dyspnea on Exertion, Edema, Irregular Heart Rhythm, Pain Radiating to Arm/Neck/Jaw, Leg Edema, Leg Ulcers, Lightheadedness, Orthopnea, Palpitations, Paroxysmal Nocturnal Dyspnea, Pedal Edema, Radiating Pain, Rapid Heart Rate, Slow Heart Rate, Syncope, Other - Respiratory Respiratory: absent: As Per HPI, Cough, Dyspnea, Hemoptysis, Dyspnea on Exertion, Wheezing, Snoring, Stridor, Pain on Inspiration, Chest Congestion, Excessive Mucous Production, Change in Mucous Color, Pain with Coughing, Other - Gastrointestinal Gastrointestinal: absent: As Per HPI, Abdominal Pain, Belching, Bloating, Change in Bowel Habits, Change in Stool Character, Coffee Ground Emesis, Constipation, Cramping, Diarrhea, Dyspepsia, Dysphagia, Early Satiety, Excessive Flatus, Fecal Incontinence, Heartburn, Hematemesis, Hematochezia, Loose Stools, Melena, Nausea, Odynophagia, Temesmus, Vomiting, Other - Genitourinary Genitourinary: absent: As Per HPI, Change in Urinary Stream, Difficulty Urinating, Dysuria, Flank Pain, Hematuria, Pyuria, Nocturia, Urinary Incontinence, Urinary Frequency, Urinary Hesitance, Urinary Urgency, Voiding Freq/Small Amts, Freq UTI, Hx Renal/Bladder Calculi, Hx /Renal Surgery, Bladder Distension, Other - Reproductive: Female Reproductive:Female: absent: As Per HPI, Amenorrhea, Amenorrhea/ Control, Currently Menstual, Cycle <21 Days, Cycle >35 Days, Cycle Variable, Menses 1-7 Days, Menses >/= 8 Days, Menses Variable, Cycle > 4 Weeks Between, No Menses for 6 Months, Heavy Menses, Light Menses, Normal Menses, Spotting Between Cycles, S/P Hysterectomy, Menopausal, Post Menopausal, Premenarche, Abnormal Vaginal Bleeding, Dysmenorrhea, Dyspareunia, Genital Lesions, Genital Pruritis, Pelvic Pain, Prolapse Symptoms, Sexual Dysfunction, Vaginal Discharge, Vaginal Dryness, Vaginal Odor, Vaginal Pruritis, Other - Menstruation Menstruation: absent: As Per HPI, Amenorrhea, Amenorrhea/ Control, Currently Menstual, Cycle <21 Days, Cycle >35 Days, Cycle Variable, Menses 1-7 Days, Menses >/= 8 Days, Menses Variable, Cycle > 4 Weeks Between, No Menses for 6 Months, Heavy Menses, Light Menses, Normal Menses, Spotting Between Cycles, S/P Hysterectomy, Menopausal, Post Menopausal, Premenarche, Abnormal Vaginal Bleeding, Dysmenorrhea, Other - Musculoskeletal Musculoskeletal: As Per HPI - Integumentary Integumentary: As Per HPI - Neurological Neurological: absent: As Per HPI, Abnormal Gait, Abnormal Hearing, Abnormal Movements, Abnormal Speech, Behavioral Changes, Burning Sensations, Confusion, Convulsions, Disequilibrium, Dizziness, Numbness, Focal Weakness, Frequent Falls, Headaches, Lack of Coordination, Loss of Vision, Memory Loss, Pa resthesias, Radicular Pain, Restless Legs, Sensory Deficit, Syncope, Tingling, Tremor, Vertigo, Weakness, Other Visual Disturbances, Other - Psychiatric Psychiatric: absent: As Per HPI, Abnormal Sleep Pattern, Anhedonia, Anxiety, Auditory Hallucinations, Behavioral Changes, Change in Appetite, Change in Libido, Confusion, Depression, Difficulty Concentrating, Hallucinations, Homicidal Ideation, Hopelessness, Irritability, Memory Loss, Mood Swings, Panic Attacks, Paranoia, Suicidal Ideation, Visual Hallucinations, Tactile Hallucinations, Other - Endocrine Endocrine: absent: As Per HPI, Change in Body Appearance, Change in Libido, Cold Intolorance, Deepening of Voice, Excessive Sweating, Fatigue, Flushing, Heat Int olorance, Increase in Ring/Shoe/Hat Size, Palpitations, Polydipsia, Polyphagia, Polyuria, Other - Hematologic/Lymphatic Hematologic: absent: As Per HPI, Easy Bleeding, Easy Bruising, Lymphadenopathy, Other Past Patient History - Past Medical History & Family History Past Medical History?: Yes - Past Social History Smoking Status: Former Smoker - CARDIAC Hx Cardiac Disorders: No - PULMONARY Hx Respiratory Disorders: No - NEUROLOGICAL Hx Neurological Disorder: No - HEENT Hx HEENT Problems: No - ENDOCRINE/METABOLIC Hx Endocrine Disorders: No - HEMATOLOGICAL/ONCOLOGICAL Hx Cancer: Yes - INTEGUMENTARY Hx Dermatological Problems: No - MUSCULOSKELETAL/RHEUMATOLOGICAL Hx Fractures: Yes (rt hip fracture s/p fall; had sx done at ) - GASTROINTESTINAL Hx Crohn's Disease: Yes (ULCERATIVE COLITIS) - GENITOURINARY/GYNECOLOGICAL Hx Genitourinary Disorders: Yes Hx Incontinence: Yes - PSYCHIATRIC Hx Substance Use: No - SURGICAL HISTORY Hx Surgeries: Yes Hx Orthopedic Surgery: Yes (RIGHT HIP) Other/Comment: STOMACH RESECTION - ANESTHESIA Hx Anesthesia: Yes Hx Anesthesia Reactions: No Hx Malignant Hyperthermia: No Meds Allergies/Adverse Reactions: Allergies Allergy/AdvReac Type Severity Reaction Status Date / Time lidocaine Allergy Verified 07/05/18 08:49 - Medications Medications: Current Medications Heparin Sodium (Porcine) (Heparin) 5,000 units SC Q8 MIGNON Last Admin: 07/05/18 13:50 Dose: 5,000 units Piperacillin Sod/Tazobactam Sod (Zosyn 3.375 Gm Iv Premix) 3.375 gm in 50 mls @ 100 mls/hr IVPB Q6H M[facility]ON; Protocol Last Admin: 07/05/18 16:24 Dose: 100 mls/hr Vancomycin HCl 750 mg/ Sodium (Chloride) 250 mls @ 166.6 mls/hr IVPB Q12H MIGNON; Protocol Last Admin: 07/05/18 16:26 Dose: 166.6 mls/hr Physical Exam - Constitutional Appears: No Acute Distress, Cachectic, Chronically Ill - Head Exam Head Exam: ATRAUMATIC, NORMAL INSPECTION, NORMOCEPHALIC - Eye Exam Eye Exam: EOMI, Normal appearance, PERRL Pupil Exam: NORMAL ACCOMODATION, PERRL - ENT Exam ENT Exam: Mucous Membranes Moist, Normal Exam - Neck Exam Neck exam: Positive for: Normal Inspection - Respiratory Exam Respiratory Exam: Clear to Auscultation Bilateral, NORMAL BREATHING PATTERN - Cardiovascular Exam Cardiovascular Exam: REGULAR RHYTHM - GI/Abdominal Exam GI & Abdominal Exam: Normal Bowel Sounds, Soft. absent: Tenderness - Rectal Exam Rectal Exam: NORMAL INSPECTION - Extremities Exam Extremities exam: Positive for: normal inspection - Back Exam Back exam: NORMAL INSPECTION - Neurological Exam Neurological exam: Alert, CN II-XII Intact, Normal Gait, Oriented x3, Reflexes Normal - Psychiatric Exam Psychiatric exam: Normal Affect, Normal Mood - Skin Skin Exam: Dry, Warm Additional comments: bilat stasis ulcers- minimally infected Results - Vital Signs Recent Vital Signs: Last Vital Signs Temp 97.1 F L 07/05/18 16:00 Pulse 81 07/05/18 16:00 Resp 20 07/05/18 16:00 BP 153/61 H 07/05/18 16:00 Pulse Ox 99 07/05/18 16:00 - Labs Result Diagrams: 07/05/18 10:33 07/05/18 11:24 Labs: Laboratory Results - last 24 hr 07/05/18 07/05/18 07/05/18 10:33 10:33 11:24 WBC 8.5 D RBC 3.96 Hgb 12.5 Hct 37.8 MCV 95.5 D MCH 31.5 H MCHC 33.0 RDW 13.9 Plt Count 229 MPV 11.0 Neut % (Auto) 77.8 H Lymph % (Auto) 14.7 L Grayson % (Auto) 4.4 Eos % (Auto) 2.3 Baso % (Auto) 0.8 Neut # (Auto) 6.6 Lymph # (Auto) 1.3 Grayson # (Auto) 0.4 Eos # (Auto) 0.2 Baso # (Auto) 0.1 PT 11.5 INR 1.1 Sodium 136 Potassium 4.1 Chloride 99 Carbon Dioxide 32 H Anion Gap 9 L BUN 15 Creatinine 0.5 L Est GFR ( Amer) > 60 Est GFR (Non-Af Amer) > 60 Random Glucose 119 H D Calcium 9.1 Total Bilirubin 0.5 AST 32 ALT 16 Alkaline Phosphatase 128 H Total Protein 6.7 Albumin 3.9 Globulin 2.8 Albumin/Globulin Ratio 1.4 Urine Color Urine Clarity Urine pH Ur Specific [place] Urine Protein Urine Glucose (UA) Urine Ketones Urine Blood Urine Nitrate Urine Bilirubin Urine Urobilinogen Ur Leukocyte Esterase Urine WBC (Auto) Urine RBC (Auto) 07/05/18 14:45 WBC RBC Hgb Hct MCV MCH MCHC RDW Plt Count MPV Neut % (Auto) Lymph % (Auto) Grayson % (Auto) Eos % (Auto) Baso % (Auto) Neut # (Auto) Lymph # (Auto) Grayson # (Auto) Eos # (Auto) Baso # (Auto) PT INR Sodium Potassium Chloride Carbon Dioxide Anion Gap BUN Creatinine Est GFR ( Amer) Est GFR (Non-Af Amer) Random Glucose Calcium Total Bilirubin AST ALT Alkaline Phosphatase Total Protein Albumin Globulin Albumin/Globulin Ratio Urine Color Straw Urine Clarity Clear Urine pH 7.0 Ur Specific [place] 1.008 Urine Protein Negative Urine Glucose (UA) Normal Urine Ketones Negative Urine Blood 1+ H Urine Nitrate Negative Urine Bilirubin Negative Urine Urobilinogen Normal Ur Leukocyte Esterase Neg Urine WBC (Auto) < 1 Urine RBC (Auto) 5 H Assessment & Plan (1) Cellulitis Status: Acute - Assessment and Plan (Free Text) Assessment: admitted for cellulitis/ stasis dermatitis IV rx started cultures sent wound car in progress
--- NOTE | 2018-07-06 03:37 | CP.PCM.PN ---
Subjective - Date & Time of Evaluation Date of Evaluation: 07/06/18 Time of Evaluation: 03:33 - Subjective Subjective: SURGERY NOTE FOR DR. MURRAY 82F seen and examined bedside. Patient denies pain in lower extremities. States b/l ankle ulcers have been there for long time without much improvement despite topical treatment. Objective - Vital Signs/Intake and Output Vital Signs (last 24 hours): Temp Pulse Resp BP Pulse Ox 988.0 F H 77 20 130/63 97 07/05/18 23:32 07/05/18 23:32 07/05/18 23:32 07/05/18 23:32 07/05/18 23:32 Intake and Output: 07/05/18 07/06/18 18:59 06:59 Intake Total 650 Output Total 400 Balance 250 - Medications Medications: Current Medications Heparin Sodium (Porcine) (Heparin) 5,000 units SC Q8 MIGNON Last Admin: 07/05/18 21:50 Dose: 5,000 units Piperacillin Sod/Tazobactam Sod (Zosyn 3.375 Gm Iv Premix) 3.375 gm in 50 mls @ 100 mls/hr IVPB Q6H [facility]ON; Protocol Last Admin: 07/05/18 21:53 Dose: 100 mls/hr Vancomycin HCl 750 mg/ Sodium (Chloride) 250 mls @ 166.6 mls/hr IVPB Q12H MIGNON; Protocol Last Admin: 07/05/18 16:26 Dose: 166.6 mls/hr - Labs Labs: 07/05/18 10:33 07/05/18 11:24 PT 11.5 SECONDS (9.7-12.2) 07/05/18 10:33 INR 1.1 07/05/18 10:33 - Constitutional Appears: Non-toxic, No Acute Distress - Respiratory Exam Respiratory Exam: Clear to Ausculation Bilateral, NORMAL BREATHING PATTERN - Cardiovascular Exam Cardiovascular Exam: REGULAR RHYTHM, +S1, +S2 - GI/Abdominal Exam GI & Abdominal Exam: Soft. absent: Distended, Firm, Guarding, Rigid, Tenderness, Rebound - Extremities Exam Additional comments: b/l lower extremity SHREYAS wrap in place Lower leg with looks has though it had edema is now resolved b/l ankle ulcerations, no tenderness, +DP signals Assessment and Plan - Assessment and Plan (Free Text) Assessment: 82F with b/l ankle ulcerations Plan: - vascular evaluation - PVR in vasc lab Further recs discuss with Dr. Hanny Zheng, PGY3
[2018-07-06] MEDS: Piperacill/Tazo 3.375gm in Dex 3.375 GM/50 ML BAG IVPB SCH ×4 (04:30→21:39)
[2018-07-06 06:41] LABS: BASO # 0.1 K/uL (0.0-0.2); BASO % 0.7 % (0.0-2.0); EOS # 0.4 K/uL (0.0-0.7); EOS % 5.4 % (0.0-4.0); HEMOGLOBIN 12.2 g/dL (11.0-16.0); LYMPH # 1.4 K/uL (1.0-4.3); LYMPH % 16.6 % (20.0-40.0); MEAN CELL VOLUME 95.3 fL (81.0-99.0); MEAN CORPUSCULAR HEMOGLOBIN 30.9 pg (27.0-31.0); MEAN CORPUSCULAR HGB CONC 32.4 g/dL (33.0-37.0); MEAN PLATELET VOLUME 9.8 fL (7.2-11.7); MONO # 0.3 K/uL (0.0-0.8); MONO % 3.5 % (0.0-10.0); NEUT # 6.2 K/uL (1.8-7.0); NEUT % 73.8 % (50.0-75.0); RBC 3.97 Mil/uL (3.80-5.20); RED CELL DISTRIBUTION WIDTH 14.2 % (11.5-14.5); WHITE BLOOD COUNT 8.4 K/uL (4.8-10.8)
[2018-07-06 07:00] LABS: ALB/GLOB RATIO 1.2 (1.0-2.1); ALBUMIN 3.3 g/dL (3.5-5.0); ALT/SGPT 14 U/L (9-52); AST/SGOT 20 U/L (14-36); BLOOD UREA NITROGEN 17 mg/dL (7-17); CALCIUM 8.4 mg/dl (8.6-10.4); GFR NON-AFRICAN AMERICAN > 60; HDL CHOLESTEROL 67 mg/dL (30-70)
[2018-07-06 07:10] LABS: LDL CHOLESTEROL 88 mg/dL (0-129)
[2018-07-06] MEDS ORDERED: Potassium Chloride 20 mEq ER Tab PO STA (07:58)
--- NOTE | 2018-07-06 08:25 | CP.PCM.PN ---
<Alona Hernández - Last Filed: 07/06/18 13:47> Subjective - Date & Time of Evaluation Date of Evaluation: 07/06/18 Time of Evaluation: 08:23 - Subjective Subjective: PGY1 Medicine Progress Note for Dr. Delfina Cooper Patient was seen and evaluated at bedside this morning. No acute events overnight. No current complaints. Patient tolerating diet. Patient otherwise denies chest pain, abdominal pain, shortness of breath, back pain, lower extremity pain, numbness/tingling, dizziness, headache, nausea, vomiting, fever, and/or chills. Of note, Patient reports history of Ulcerative Colitis she received treatment 8 years ago by unspecified GI physician whom she could not recall name. Objective - Vital Signs/Intake and Output Vital Signs (last 24 hours): Temp Pulse Resp BP Pulse Ox 988.0 F H 77 20 130/63 97 07/05/18 23:32 07/05/18 23:32 07/05/18 23:32 07/05/18 23:32 07/05/18 23:32 Intake and Output: 07/06/18 07/06/18 06:59 18:59 Intake Total 650 370 Output Total 400 Balance 250 370 - Medications Medications: Current Medications Heparin Sodium (Porcine) (Heparin) 5,000 units SC Q8 MIGNON Last Admin: 07/06/18 06:00 Dose: 5,000 units Piperacillin Sod/Tazobactam Sod (Zosyn 3.375 Gm Iv Premix) 3.375 gm in 50 mls @ 100 mls/hr IVPB Q6H [facility]; Protocol Last Admin: 07/06/18 04:30 Dose: 100 mls/hr Vancomycin HCl 750 mg/ Sodium (Chloride) 250 mls @ 166.6 mls/hr IVPB Q12H [facility]IGNON; Protocol Last Admin: 07/06/18 05:15 Dose: 166.6 mls/hr - Labs Labs: 07/06/18 06:36 07/06/18 06:36 PT 11.5 SECONDS (9.7-12.2) 07/05/18 10:33 INR 1.1 07/05/18 10:33 - Additional Findings Additional findings: - Constitutional Appears: Cachectic - Head Exam Head Exam: NORMAL INSPECTION - Eye Exam Eye Exam: Normal appearance - ENT Exam ENT Exam: Mucous Membranes Moist - Respiratory Exam Respiratory Exam: NORMAL BREATHING PATTERN. absent: Rhonchi, Wheezes, Stridor - Cardiovascular Exam Cardiovascular Exam: +S1, +S2 - GI/Abdominal Exam GI & Abdominal Exam: Normal Bowel Sounds, Soft - Extremities Exam Additional comments: B/L lower extremity ulcers at medial malleolus DP pulses palpable Erythema dry bilaterally, flaky bilaterally. +1 edema bilaterally superficial, shallow ulcers bilaterally at the medial malleolus: with irregular flat margins, granulation tissue and exudate present Minimal drain from ulcers - Neurological Exam Neurological exam: Alert, Oriented x3 - Skin Skin Exam: Erythema, Warm Assessment and Plan - Assessment and Plan (Free Text) Assessment: Ms. Montague is an 82-year-old F with PMH of non-healing ulcer of the ankle bilaterally and cellulitis presents with "worsening foot problems and swelling in both of my feet." Patient subsequently admitted for non-healing chronic vascular ulcers and failed out-patient treatment of bilateral leg ulcers. Plan: 1. Non- Healing Chronic Vascular Ulcers - Podiatry consulted (Dr. Bowser); rec. appreciated - Vascular surgery consulted (Dr. Davis); rec. appreciated - ID consulted (Dr. Copeland); rec. appreciated - Pending recommendations from ID and Vascular Surgery PVR in vascular lab / vascular evaluation - 2/2 Blood culture negative x24 hours - 2/2: RESULTS: Wound culture RIGHT ankle growth: Gram negative rods (heavy growth) and Staph Aureus will f/u on final results - Urinalysis unremarkable - SCD contraindicated 2. Failed Out-Patient Treatment of Bilateral LE Ulcers - Follow-up with ID recommendations - Afebrile - Lipid panel within normal limits - TSH within normal limits - No leukocytosis - 2/: Bilateral ankle x-ray results: No acute fracture, no dislocation, no advanced osteoporosis (see official report) - F/U Vitamin D - ESR elevated at 21 3. History of Ulcerative Colitis - Patient was treated in the past (8 years ago) by unspecified GI physician (T[facility] ward could not recall the name) - Patient currently not on any medications for UC. 4. PPx: GI: not indicated at this time DVT: SCD contraindicated; on Heparin 5,000 units SC Q8 Patient was seen and evaluated with Dr. Kenneth Hernández PGY1 <Cj Cooper - Last Filed: 07/06/18 19:52> Objective - Vital Signs/Intake and Output Vital Signs (last 24 hours): Temp Pulse Resp BP Pulse Ox 97.9 F 75 20 134/68 96 07/06/18 17:45 07/06/18 17:45 07/06/18 17:45 07/06/18 17:45 07/06/18 17:45 Intake and Output: 07/06/18 07/07/18 18:59 06:59 Intake Total 770 Balance 770 - Medications Medications: Current Medications Heparin Sodium (Porcine) (Heparin) 5,000 units SC Q8 MIGNON Last Admin: 07/06/18 13:04 Dose: 5,000 units Piperacillin Sod/Tazobactam Sod (Zosyn 3.375 Gm Iv Premix) 3.375 gm in 50 mls @ 100 mls/hr IVPB Q6H [facility]; Protocol Last Admin: 07/06/18 16:05 Dose: 100 mls/hr Vancomycin HCl 750 mg/ Sodium (Chloride) 250 mls @ 166.6 mls/hr IVPB Q12H [facility]; Protocol Last Admin: 07/06/18 16:58 Dose: 166.6 mls/hr Lactobacillus Acidophilus (Bacid Acidophilus) 1 cap PO Q12H MIGNON Pneumococcal Polyvalent Vaccine (Pneumovax 23 Vaccine) 0.5 ml IM .ONCE ONE Stop: 07/08/18 10:01 - Labs Labs: 07/06/18 06:36 07/06/18 06:36 PT 11.5 SECONDS (9.7-12.2) 07/05/18 10:33 INR 1.1 07/05/18 10:33 Attending/Attestation - Attestation I have personally seen and examined this patient.: Yes I have fully participated in the care of the patient.: Yes I have reviewed all pertinent clinical information, including history, physical exam and plan: Yes Notes (Text): 07/06/18 19:44 Hospitalist Care of this patient was gone over in detail with resident Dr. Hernández. Patient was seen and examined at 12 PM Also on ROS: NOT moved bowels in 3 days: this is not abnormal for her as she normally moves her bowels no more than 2x/week. She is passing gas NO abdominal pain NO n/v NO chest pain NO SOB NO other complaints upon FULL ROS Assessments: 1). Non-healing Chronic Vascular Ulcers 2). Hx Ulcerative Colitis F/U BAUTISTA of Bilateral Lower Legs on Sunday07/08/18: if NO arterial issue, then could the bilateral ankle ulcers be secondary to venous insufficiency considering that there is evidence that the legs were edematous at one point (no longer edematous during exam)? If so and if Vascular and Podiatry Teams agree, could Rabia Boots be helpful for this patient? Culture of the ankle wound 07/05/18 shows preliminary Gram Negative Rods and Staph: please follow up sensitivities. Patient is currently on Vancomycin and Zosyn. Blood Culture 07/05/18 is negative to date There is no evidence of cortical destruction or periosteal elevation on X rays of Bilateral Ankles 07/05/18 but did show evidence of osteoporosis. Patient revealed that she has a history of Ulcerative Colitis that last flared roughly 8 years ago and was being followed at that time by a GI physician whose name she can not recall. Since that time she has not been on any medications for this issue and states that it has been controlled by her watching her diet. Cj Cooper D.O.
--- NOTE | 2018-07-06 08:29 | RAD ---
Date of service: 07/06/2018 PROCEDURE: BILATERAL ANKLES RADIOGRAPHS HISTORY: wound COMPARISON: No comparison available. TECHNIQUE: AP, lateral and bilateral oblique projections of the ankles have been submitted for interpretation. FINDINGS: No acute fracture or dislocation is identified bilaterally. However, there is extensive demineralization suggesting advanced osteoporosis. Trabecular and cortical thinning are identified diffusely. The ankle mortises appear intact. No destructive bony lesion identified throughout. Local soft tissues unremarkable. Talar domes appear normal. IMPRESSION: No acute displaced fracture. No dislocation bilateral ankles. Advanced osteoporosis is suggested by extreme osteopenia diffusely noted.
--- NOTE | 2018-07-06 12:06 | CP.PCM.PN ---
Subjective - Date & Time of Evaluation Date of Evaluation: 07/06/18 Time of Evaluation: 12:06 - Subjective Subjective: Podiatry Progress Note - Dr. Bowser 82 y/o female seen at bedside this morning with Dr. Bowser for bilateral lower extremity edema with weeping superficial ulcers. She states she had no events overnight. Says nursing changed her dressings an hour ago. Denies any pain to the lower extremities. Denies any F/C/N/V/CP/SOB Objective - Vital Signs/Intake and Output Vital Signs (last 24 hours): Temp Pulse Resp BP Pulse Ox 988.0 F H 77 20 130/63 97 07/05/18 23:32 07/05/18 23:32 07/05/18 23:32 07/05/18 23:32 07/05/18 23:32 Intake and Output: 07/06/18 07/06/18 06:59 18:59 Intake Total 650 370 Output Total 400 Balance 250 370 - Medications Medications: Current Medications Heparin Sodium (Porcine) (Heparin) 5,000 units SC Q8 MIGNON Last Admin: 07/06/18 06:00 Dose: 5,000 units Piperacillin Sod/Tazobactam Sod (Zosyn 3.375 Gm Iv Premix) 3.375 gm in 50 mls @ 100 mls/hr IVPB Q6H [facility]; Protocol Last Admin: 07/06/18 10:08 Dose: 100 mls/hr Vancomycin HCl 750 mg/ Sodium (Chloride) 250 mls @ 166.6 mls/hr IVPB Q12H [facility]ON; Protocol Last Admin: 07/06/18 05:15 Dose: 166.6 mls/hr Lactobacillus Acidophilus (Bacid Acidophilus) 1 cap PO Q12H M[facility]ON Pneumococcal Polyvalent Vaccine (Pneumovax 23 Vaccine) 0.5 ml IM .ONCE ONE Stop: 07/08/18 10:01 - Labs Labs: 07/06/18 06:36 07/06/18 06:36 PT 11.5 SECONDS (9.7-12.2) 07/05/18 10:33 INR 1.1 07/05/18 10:33 - Constitutional Appears: Well, Non-toxic, No Acute Distress - Extremities Exam Additional comments: Dressings intact to B/L lower extremities - no strikethrough noted SHREYAS bandages to B/L lower extremities CFT < 3 sec to all digits - Neurological Exam Neurological Exam: Alert, Awake, Oriented x3 - Psychiatric Exam Psychiatric exam: Normal Affect, Normal Mood Assessment and Plan - Assessment and Plan (Free Text) Assessment: 82F seen in ED for bilateral lower extremity edema with venous stasis ulcerations Plan: Patient seen and evaluatedwith Dr. Bowser Afebrile, absent leukocytosis Wound cx R ankle prelim gram neg kirsten, S. aureus ID on consult, appreciate recommendations Vascular on consult, appreciate recommendations PVR studies pending Podiatry to continue local wound care with TelNEEL haynes, DSD SHREYAS B/L No plan for surgical intervention at this time Podiatry will continue to follow while patient in house
--- NOTE | 2018-07-06 19:52 | CP.PCM.PCO ---
Physician Communication Note - Physician Communication Note Physician Communication Note: Please see above
[2018-07-06] MEDS: Lactobacillus Acidophilus 500 MU Cap PO SCH (20:20)
[2018-07-07] MEDS: Lactated Ringer's 1,000 ML IV SCH ×5 (01:18→20:45)
[2018-07-07] MEDS: Piperacill/Tazo 3.375gm in Dex 3.375 GM/50 ML BAG IVPB SCH ×2 (04:16→09:54)
--- NOTE | 2018-07-07 08:22 | CP.PCM.PN ---
<Alona Hernández - Last Filed: 07/07/18 13:27> Subjective - Date & Time of Evaluation Date of Evaluation: 07/07/18 Time of Evaluation: 08:17 - Subjective Subjective: PGY1 Medicine Progress Note for Patient was seen and evaluated at bedside this morning. Patient with loose watery stools overnight, per Nurse. No current complaints. Patient tolerating diet. Patient otherwise denies chest pain, abdominal pain, shortness of breath, back pain, lower extremity pain, numbness/tingling, dizziness, headache, nausea, vomiting, fever, and/or chills. Objective - Vital Signs/Intake and Output Vital Signs (last 24 hours): Temp Pulse Resp BP Pulse Ox 97.3 F L 76 20 134/68 97 07/07/18 00:00 07/07/18 00:00 07/07/18 00:00 07/06/18 17:45 07/07/18 00:00 Intake and Output: 07/07/18 07/07/18 06:59 18:59 Intake Total 750 1400 Balance 750 1400 - Medications Medications: Current Medications Heparin Sodium (Porcine) (Heparin) 5,000 units SC Q8 [facility] Last Admin: 07/07/18 05:27 Dose: 5,000 units Piperacillin Sod/Tazobactam Sod (Zosyn 3.375 Gm Iv Premix) 3.375 gm in 50 mls @ 100 mls/hr IVPB Q6H [facility]; Protocol Last Admin: 07/07/18 04:16 Dose: 100 mls/hr Vancomycin HCl 750 mg/ Sodium (Chloride) 250 mls @ 166.6 mls/hr IVPB Q12H [facility]; Protocol Last Admin: 07/07/18 04:16 Dose: 166.6 mls/hr Lactated Ringer's (Lactated Ringer's) 1,000 mls @ 150 mls/hr IV .Q6H40M [facility] Last Admin: 07/07/18 01:18 Dose: 150 mls/hr Lactobacillus Acidophilus (Bacid Acidophilus) 1 cap PO Q12H [facility] Last Admin: 07/06/18 20:20 Dose: 1 cap Pneumococcal Polyvalent Vaccine (Pneumovax 23 Vaccine) 0.5 ml IM .ONCE ONE Stop: 07/08/18 10:01 - Labs Labs: 07/06/18 06:36 07/06/18 06:36 PT 11.5 SECONDS (9.7-12.2) 07/05/18 10:33 INR 1.1 07/05/18 10:33 - Additional Findings Additional findings: - Constitutional Appears: Cachectic - Head Exam Head Exam: NORMAL INSPECTION - Eye Exam Eye Exam: Normal appearance - ENT Exam ENT Exam: Mucous Membranes Moist - Respiratory Exam Respiratory Exam: NORMAL BREATHING PATTERN. absent: Rhonchi, Wheezes, Stridor - Cardiovascular Exam Cardiovascular Exam: +S1, +S2 - GI/Abdominal Exam GI & Abdominal Exam: Normal Bowel Sounds, Soft - Extremities Exam Additional comments: B/L lower extremity ulcers at medial malleolus DP pulses palpable Erythema dry bilaterally, flaky bilaterally. +1 edema bilaterally superficial, shallow ulcers bilaterally at the medial malleolus: with irregular flat margins, granulation tissue and exudate present Minimal drain from ulcers - Neurological Exam Neurological exam: Alert, Oriented x3 - Skin Skin Exam: Erythema, Warm Assessment and Plan - Assessment and Plan (Free Text) Assessment: Ms. Montague is an 82-year-old F with PMH of non-healing ulcer of the ankle bilaterally and cellulitis presents with "worsening foot problems and swelling in both of my feet." Patient subsequently admitted for non-healing chronic vascular ulcers and failed out-patient treatment of bilateral leg ulcers. Plan: Non- Healing Chronic Vascular Ulcers - Podiatry consulted (Dr. Bowser); rec. appreciated - Vascular surgery consulted (Dr. Davis); rec. appreciated - ID consulted (Dr. Copeland); rec. appreciated - Pending recommendations from ID and Vascular Surgery PVR in vascular lab / vascular evaluation - Empiric therapy: vanco and zosyn- switched to merrem on 07/07 - 07/06 Blood culture negative x24 hours - 07/06: RESULTS: Wound culture RIGHT ankle growth: Pseudomonas; sensitive to meropenem and cipro and Staph Aureus; sensitive to vanco and cipro Will follow up on ID recommendations regarding ABX --> switch from zosyn to merrem (and continue with Vanco) - Urinalysis unremarkable - SCD contraindicated - F/U BAUTISTA of Bilateral Lower Legs on Sunday07/08/18: if NO arterial issue, then could the bilateral ankle ulcers be secondary to venous insufficiency considering that there is evidence that the legs were edematous at one point. - If so and if Vascular and Podiatry Teams agree, could Rabia Boots be helpful for this patient. Failed Out-Patient Treatment of Bilateral LE Ulcers - Follow-up with ID recommendations - Afebrile - Lipid panel within normal limits - TSH within normal limits - No leukocytosis - 2/: Bilateral ankle x-ray results: No acute fracture, no dislocation, no advanced osteoporosis (see official report) - Vitamin D=37 - ESR elevated at 21 Loose Watery Stools likely side-effect of antibiotics - ID (Dr. Copeland on board) - Lactobacillus 1 cap PO Q12H History of Ulcerative Colitis - Patient was treated in the past (8 years ago) by unspecified GI physician (Patient could not recall the name) - Patient currently not on any medications for UC. PPx: GI: not indicated at this time DVT: SCD contraindicated; on Heparin 5,000 units SC Q8 Patient was seen and evaluated with Dr. Narda Hernández PGY1 <Migue Laboy - Last Filed: 07/07/18 14:27> Objective - Vital Signs/Intake and Output Vital Signs (last 24 hours): Temp Pulse Resp BP Pulse Ox 97.3 F L 76 20 134/68 97 07/07/18 00:00 07/07/18 00:00 07/07/18 00:00 07/06/18 17:45 07/07/18 00:00 Intake and Output: 07/07/18 07/07/18 06:59 18:59 Intake Total 750 1400 Balance 750 1400 - Medications Medications: Current Medications Heparin Sodium (Porcine) (Heparin) 5,000 units SC Q8 [facility] Last Admin: 07/07/18 14:01 Dose: 5,000 units Vancomycin HCl 750 mg/ Sodium (Chloride) 250 mls @ 166.6 mls/hr IVPB Q12H [facility]; Protocol Last Admin: 07/07/18 04:16 Dose: 166.6 mls/hr Lactated Ringer's (Lactated Ringer's) 1,000 mls @ 150 mls/hr IV .Q6H40M [facility] Last Admin: 07/07/18 10:01 Dose: 150 mls/hr Meropenem 1 gm/ Sodium (Chloride) 100 mls @ 100 mls/hr IVPB Q12H [facility]; Protocol Last Admin: 07/07/18 14:11 Dose: 100 mls/hr Lactobacillus Acidophilus (Bacid Acidophilus) 1 cap PO Q12H [facility] Last Admin: 07/07/18 09:00 Dose: 1 cap Pneumococcal Polyvalent Vaccine (Pneumovax 23 Vaccine) 0.5 ml IM .ONCE ONE Stop: 07/08/18 10:01 - Labs Labs: 07/07/18 11:06 07/07/18 08:31 PT 11.5 SECONDS (9.7-12.2) 07/05/18 10:33 INR 1.1 07/05/18 10:33 Attending/Attestation - Attestation I have personally seen and examined this patient.: Yes I have fully participated in the care of the patient.: Yes I have reviewed all pertinent clinical information, including history, physical exam and plan: Yes Notes (Text): 07/07/18 14:26 Medical attending: Patient was seen and examined by me. Agree with the above note by the medical collector. The patient was not in any acute distress and she denied having pain The culture had returned in the morning and was + psudomonas aureginosa, abx will be changed. Migue Laboy
[2018-07-07 08:56] LABS: ALB/GLOB RATIO 1.2 (1.0-2.1); ALBUMIN 3.2 g/dL (3.5-5.0); ALT/SGPT 8 U/L (9-52); AST/SGOT 24 U/L (14-36); BLOOD UREA NITROGEN 13 mg/dL (7-17); CALCIUM 8.4 mg/dl (8.6-10.4); GFR NON-AFRICAN AMERICAN > 60
[2018-07-07] MEDS: Lactobacillus Acidophilus 500 MU Cap PO SCH ×2 (09:00→19:18)
--- NOTE | 2018-07-07 09:28 | CP.PCM.PCO ---
Physician Communication Note - Physician Communication Note Physician Communication Note: BAUTISTA/PVR pending. further mngmnt per results. cont wound care per podiatry
[2018-07-07 11:19] LABS: BASO % 0.8 % (0.0-2.0); EOS # 0.3 K/uL (0.0-0.7); EOS % 5.9 % (0.0-4.0); HEMOGLOBIN 12.7 g/dL (11.0-16.0); LYMPH # 1.4 K/uL (1.0-4.3); LYMPH % 24.7 % (20.0-40.0); MEAN CELL VOLUME 95.9 fL (81.0-99.0); MEAN CORPUSCULAR HEMOGLOBIN 31.3 pg (27.0-31.0); MEAN CORPUSCULAR HGB CONC 32.7 g/dL (33.0-37.0); MEAN PLATELET VOLUME 10.1 fL (7.2-11.7); MONO # 0.3 K/uL (0.0-0.8); MONO % 4.9 % (0.0-10.0); NEUT # 3.5 K/uL (1.8-7.0); NEUT % 63.7 % (50.0-75.0); RBC 4.06 Mil/uL (3.80-5.20); RED CELL DISTRIBUTION WIDTH 14.3 % (11.5-14.5); WHITE BLOOD COUNT 5.5 K/uL (4.8-10.8)
[2018-07-07] MEDS ORDERED: Meropenem 1 GM in Sodium Chloride 0.9% 100 ML IVPB SCH (13:30)
--- NOTE | 2018-07-07 16:18 | CP.PCM.PN ---
Subjective - Date & Time of Evaluation Date of Evaluation: 07/07/18 Time of Evaluation: 09:00 - Subjective Subjective: c/o diarrhea on merrem no fever no abd pain likely antibiotic related add acidophilus will adjust dose Objective - Vital Signs/Intake and Output Vital Signs (last 24 hours): Temp Pulse Resp BP Pulse Ox 97.8 F 73 20 126/79 98 07/07/18 15:00 07/07/18 15:00 07/07/18 15:00 07/07/18 15:00 07/07/18 15:00 Intake and Output: 07/07/18 07/07/18 06:59 18:59 Intake Total 750 3125 Balance 750 3125 - Medications Medications: Current Medications Heparin Sodium (Porcine) (Heparin) 5,000 units SC Q8 [facility] Last Admin: 07/07/18 14:01 Dose: 5,000 units Vancomycin HCl 750 mg/ Sodium (Chloride) 250 mls @ 166.6 mls/hr IVPB Q12H [facility]; Protocol Last Admin: 07/07/18 04:16 Dose: 166.6 mls/hr Lactated Ringer's (Lactated Ringer's) 1,000 mls @ 150 mls/hr IV .Q6H40M [facility] Last Admin: 07/07/18 14:00 Dose: 150 mls/hr Lactobacillus Acidophilus (Bacid Acidophilus) 1 cap PO Q12H [facility] Last Admin: 07/07/18 09:00 Dose: 1 cap Pneumococcal Polyvalent Vaccine (Pneumovax 23 Vaccine) 0.5 ml IM .ONCE ONE Stop: 07/08/18 10:01 - Labs Labs: 07/07/18 11:06 07/07/18 08:31 PT 11.5 SECONDS (9.7-12.2) 07/05/18 10:33 INR 1.1 07/05/18 10:33 - Constitutional Appears: Well - Head Exam Head Exam: ATRAUMATIC, NORMAL INSPECTION, NORMOCEPHALIC - Eye Exam Eye Exam: EOMI, Normal appearance, PERRL Pupil Exam: NORMAL ACCOMODATION, PERRL - ENT Exam ENT Exam: Mucous Membranes Moist, Normal Exam - Neck Exam Neck Exam: Full ROM, Normal Inspection. absent: Lymphadenopathy - Respiratory Exam Respiratory Exam: Clear to Ausculation Bilateral, NORMAL BREATHING PATTERN - Cardiovascular Exam Cardiovascular Exam: REGULAR RHYTHM, +S1, +S2. absent: Murmur - GI/Abdominal Exam GI & Abdominal Exam: Soft, Normal Bowel Sounds. absent: Tenderness - Rectal Exam Rectal Exam: NORMAL INSPECTION - Extremities Exam Extremities Exam: Full ROM, Normal Capillary Refill. absent: Joint Swelling, Normal Inspection, Pedal Edema Additional comments: foot ulcers + - Back Exam Back Exam: NORMAL INSPECTION - Neurological Exam Neurological Exam: Alert, Awake, CN II-XII Intact, Normal Gait, Oriented x3 - Psychiatric Exam Psychiatric exam: Normal Affect, Normal Mood - Skin Skin Exam: Dry, Intact, Normal Color, Warm Assessment and Plan (1) Cellulitis Status: Acute - Assessment and Plan (Free Text) Assessment: cont merrem add acidophilus
[2018-07-07] MEDS: Meropenem 500 MG in Sodium Chloride 0.9% 100 ML IVPB SCH (17:44)
[2018-07-08] MEDS: Meropenem 500 MG in Sodium Chloride 0.9% 100 ML IVPB SCH ×3 (02:59→17:39)
[2018-07-08] MEDS: Lactated Ringer's 1,000 ML IV SCH ×2 (03:00→17:15)
[2018-07-08 06:51] LABS: BASO # 0.1 K/uL (0.0-0.2); BASO % 0.9 % (0.0-2.0); EOS # 0.4 K/uL (0.0-0.7); EOS % 6.4 % (0.0-4.0); HEMOGLOBIN 11.9 g/dL (11.0-16.0); LYMPH # 1.7 K/uL (1.0-4.3); LYMPH % 28.2 % (20.0-40.0); MEAN CELL VOLUME 95.4 fL (81.0-99.0); MEAN CORPUSCULAR HEMOGLOBIN 31.5 pg (27.0-31.0); MEAN PLATELET VOLUME 9.9 fL (7.2-11.7); MONO # 0.3 K/uL (0.0-0.8); MONO % 4.9 % (0.0-10.0); NEUT # 3.7 K/uL (1.8-7.0); NEUT % 59.6 % (50.0-75.0); RBC 3.78 Mil/uL (3.80-5.20); RED CELL DISTRIBUTION WIDTH 14.5 % (11.5-14.5); WHITE BLOOD COUNT 6.2 K/uL (4.8-10.8)
[2018-07-08 07:04] LABS: ALB/GLOB RATIO 1.1 (1.0-2.1); ALBUMIN 2.9 g/dL (3.5-5.0); ALT/SGPT 18 U/L (9-52); AST/SGOT 22 U/L (14-36); BLOOD UREA NITROGEN 11 mg/dL (7-17); CALCIUM 8.5 mg/dl (8.6-10.4); GFR NON-AFRICAN AMERICAN > 60
--- NOTE | 2018-07-08 07:52 | CP.PCM.PN ---
<Alona Hernández - Last Filed: 07/08/18 09:28> Subjective - Date & Time of Evaluation Date of Evaluation: 07/08/18 Time of Evaluation: 07:52 - Subjective Subjective: PGY1 Medicine Progress Note for Patient was seen and evaluated at bedside this morning. No acute events overnight. No current complaints. Patient tolerating diet. Patient otherwise denies chest pain, abdominal pain, shortness of breath, back pain, lower e xtremity pain, numbness/tingling, dizziness, headache, nausea, vomiting, fever, and/or chills. Objective - Vital Signs/Intake and Output Vital Signs (last 24 hours): Temp Pulse Resp BP Pulse Ox 97.4 F L 74 20 145/74 97 07/08/18 07:46 07/08/18 07:46 07/08/18 07:46 07/08/18 07:46 07/08/18 07:46 Intake and Output: 07/08/18 07/08/18 06:59 18:59 Intake Total 1500 Balance 1500 - Medications Medications: Current Medications Heparin Sodium (Porcine) (Heparin) 5,000 units SC Q8 [facility] Last Admin: 07/08/18 06:07 Dose: 5,000 units Lactated Ringer's (Lactated Ringer's) 1,000 mls @ 150 mls/hr IV .Q6H40M [facility] Last Admin: 07/08/18 03:00 Dose: 150 mls/hr Meropenem 500 mg/ Sodium (Chloride) 100 mls @ 100 mls/hr IVPB Q8H [facility]; Protocol Last Admin: 07/08/18 02:59 Dose: 100 mls/hr Lactobacillus Acidophilus (Bacid Acidophilus) 1 cap PO Q12H [facility] Last Admin: 07/07/18 19:18 Dose: 1 cap Pneumococcal Polyvalent Vaccine (Pneumovax 23 Vaccine) 0.5 ml IM .ONCE ONE Stop: 07/08/18 10:01 - Labs Labs: 07/08/18 06:43 07/08/18 06:43 PT 11.5 SECONDS (9.7-12.2) 07/05/18 10:33 INR 1.1 07/05/18 10:33 - Additional Findings Additional findings: - Constitutional Appears: Cachectic - Head Exam Head Exam: NORMAL INSPECTION - Eye Exam Eye Exam: Normal appearance - ENT Exam ENT Exam: Mucous Membranes Moist - Respiratory Exam Respiratory Exam: NORMAL BREATHING PATTERN. absent: Rhonchi, Wheezes, Stridor - Cardiovascular Exam Cardiovascular Exam: +S1, +S2 - GI/Abdominal Exam GI & Abdominal Exam: Normal Bowel Sounds, Soft - Extremities Exam Additional comments: B/L lower extremity ulcers at medial malleolus DP pulses palpable Erythema dry bilaterally, flaky bilaterally. +1 edema bilaterally superficial, shallow ulcers bilaterally at the medial malleolus: with irregular flat margins, granulation tissue and exudate present Minimal drain from ulcers - Neurological Exam Neurological exam: Alert, Oriented x3 - Skin Skin Exam: Erythema, Warm Assessment and Plan - Assessment and Plan (Free Text) Assessment: Ms. Montague is an 82-year-old F with PMH of non-healing ulcer of the ankle bilaterally and cellulitis presents with "worsening foot problems and swelling in both of my feet." Patient subsequently admitted for non-healing chronic vascular ulcers and failed out-patient treatment of bilateral leg ulcers. Plan: Non- Healing Chronic Vascular Ulcers - Podiatry consulted (Dr. Bowser); rec. appreciated - Vascular surgery consulted (Dr. Davis); rec. appreciated - ID consulted (Dr. Copeland); rec. appreciated - Pending recommendations from ID and Vascular Surgery PVR in vascular lab / vascular evaluation - Discontinued: vanco and zosyn - 2/2 Blood culture negative x24 hours - 07/06: RESULTS: Wound culture RIGHT ankle growth: Pseudomonas; sensitive to meropenem and cipro and Staph Aureus; sensitive to vanco and cipro Will follow up on ID recommendations regarding ABX --> switch from zosyn to merrem - Urinalysis unremarkable - SCD contraindicated - F/U BAUTISTA of Bilateral Lower Legs on Sunday07/08/18: if NO arterial issue, then could the bilateral ankle ulcers be secondary to venous insufficiency considering that there is evidence that the legs were edematous at one point. - Wound care consulted; recommendations appreciated - If so and if Vascular and Podiatry Teams agree, could Rabia Boots be helpful for this patient. Failed Out-Patient Treatment of Bilateral LE Ulcers - Follow-up with ID recommendations - Afebrile - Lipid panel within normal limits - TSH within normal limits - No leukocytosis - 07/05: Bilateral ankle x-ray results: No acute fracture, no dislocation, no advanced osteoporosis (see official report) - Vitamin D=37 - ESR elevated at 21 Loose Watery Stools likely side-effect of antibiotics, improved - ID (Dr. Copeland on board) - Lactobacillus 1 cap PO Q12H - Vancomycin discontinued History of Ulcerative Colitis - Patient was treated in the past (8 years ago) by unspecified GI physician (Patient could not recall the name) - Patient currently not on any medications for UC. PPx: GI: not indicated at this time DVT: SCD contraindicated; on Heparin 5,000 units SC Q8 Patient was seen and evaluated with Dr. Narda Hernández PGY1 <Migue Laboy H - Last Filed: 07/08/18 14:15> Objective - Vital Signs/Intake and Output Vital Signs (last 24 hours): Temp Pulse Resp BP Pulse Ox 97.4 F L 74 20 145/74 97 07/08/18 07:46 07/08/18 07:46 07/08/18 07:46 07/08/18 07:46 07/08/18 07:46 Intake and Output: 07/08/18 07/08/18 06:59 18:59 Intake Total 1500 1400 Balance 1500 1400 - Medications Medications: Current Medications Heparin Sodium (Porcine) (Heparin) 5,000 units SC Q8 [facility] Last Admin: 07/08/18 06:07 Dose: 5,000 units Lactated Ringer's (Lactated Ringer's) 1,000 mls @ 150 mls/hr IV .Q6H40M [facility] Last Admin: 07/08/18 03:00 Dose: 150 mls/hr Meropenem 500 mg/ Sodium (Chloride) 100 mls @ 100 mls/hr IVPB Q8H [facility]; Protocol Last Admin: 07/08/18 10:17 Dose: 100 mls/hr Lactobacillus Acidophilus (Bacid Acidophilus) 1 cap PO Q12H [facility] Last Admin: 07/08/18 08:48 Dose: 1 cap - Labs Labs: 07/08/18 06:43 07/08/18 06:43 PT 11.5 SECONDS (9.7-12.2) 07/05/18 10:33 INR 1.1 07/05/18 10:33 Attending/Attestation - Attestation I have personally seen and examined this patient.: Yes I have fully participated in the care of the patient.: Yes I have reviewed all pertinent clinical information, including history, physical exam and plan: Yes Notes (Text): 07/08/18 14:11 Medical attending: Patient was seen and examined by me. Agree with the above note by the resident The patient was not in any acute distres when I came and saw with the medical insurance biller The patient was very talkative. We will get a wound care evaluation Also abx were changed yesterday as well to better cover the + pseudomonas growth from the wounds Migue Laboy
--- NOTE | 2018-07-08 08:17 | CP.PCM.PN ---
Subjective - Date & Time of Evaluation Date of Evaluation: 07/08/18 Time of Evaluation: 08:14 - Subjective Subjective: Podiatry Progress Note - Dr. Bowser 82 y/o female seen at bedside this morning with Dr. Bowser for bilateral lower extremity edema with weeping superficial ulcers. She states she had no events overnight. Denies any pain to the lower extremities. Denies any F/C/N/V/CP/SOB Objective - Vital Signs/Intake and Output Vital Signs (last 24 hours): Temp Pulse Resp BP Pulse Ox 97.4 F L 74 20 145/74 97 07/08/18 07:46 07/08/18 07:46 07/08/18 07:46 07/08/18 07:46 07/08/18 07:46 Intake and Output: 07/08/18 07/08/18 06:59 18:59 Intake Total 1500 1400 Balance 1500 1400 - Medications Medications: Current Medications Heparin Sodium (Porcine) (Heparin) 5,000 units SC Q8 [facility] Last Admin: 07/08/18 06:07 Dose: 5,000 units Lactated Ringer's (Lactated Ringer's) 1,000 mls @ 150 mls/hr IV .Q6H40M [facility] Last Admin: 07/08/18 03:00 Dose: 150 mls/hr Meropenem 500 mg/ Sodium (Chloride) 100 mls @ 100 mls/hr IVPB Q8H [facility]; Protocol Last Admin: 07/08/18 02:59 Dose: 100 mls/hr Lactobacillus Acidophilus (Bacid Acidophilus) 1 cap PO Q12H [facility] Last Admin: 07/07/18 19:18 Dose: 1 cap Pneumococcal Polyvalent Vaccine (Pneumovax 23 Vaccine) 0.5 ml IM .ONCE ONE Stop: 07/08/18 10:01 - Labs Labs: 07/08/18 06:43 07/08/18 06:43 PT 11.5 SECONDS (9.7-12.2) 07/05/18 10:33 INR 1.1 07/05/18 10:33 - Constitutional Appears: Well, Non-toxic, No Acute Distress - Extremities Exam Additional comments: LE focused exam Vasc: DP/PT pulses faintly palpable to b/l LE. Skin temperature warm to warm from proximal to distal. CFT < 3 seconds to all digits. No edema noted b/l Neuro: Epicritic and protective sensation grossly intact b/l Derm: Left leg- Erythema appears to be resolving, multiple small scabs and wounds noted circumferentially around the leg. 2 cm x 4 cm x 0.1 cm ulceration noted to medial malleolus consistent with venous stasis ulceration. Wound base is fibrogranular with minimal serous drainage appreciated. No malodor present. Right leg- Erythema appears to be resolving, multiple small scabs and wounds noted circumferentially around the leg. 2 cm x 4 cm x 0.1 cm ulceration noted to medial malleolus consistent with venous stasis ulceration. Wound base is fibrogranular with an approximately 1 cm x 1 cm patch of green/yellow fibrous tissue. Minimal serous drainage appreciated. No malodor present. No tracking, tunneling, undermining or probe to bone appreciated at either ulceration site MSK: No pain on palpation of either ulceration site. ROM to all major joints WNL given age and body habitus. MMT to all major muscle groups WNL given age and body habitus - Neurological Exam Neurological Exam: Alert, Awake, Oriented x3 - Psychiatric Exam Psychiatric exam: Normal Affect, Normal Mood Assessment and Plan - Assessment and Plan (Free Text) Assessment: 82F evaluated for bilateral lower extremity edema with venous stasis ulcerations Plan: Patient seen and evaluatedwith Dr. Bowser Afebrile, absent leukocytosis Wound cx R ankle prelim gram neg kirsten, S. aureus ID on consult, appreciate recommendations Vascular on consult, appreciate recommendations PVR studies - pending Podiatry to continue local wound care with Telfa, ABD, DSD SHREYAS B/L No plan for surgical intervention at this time Stable from podiatry standpoint Podiatry will continue to follow while patient in house
[2018-07-08] MEDS: Lactobacillus Acidophilus 500 MU Cap PO SCH ×2 (08:48→21:08)
[2018-07-08] MEDS ORDERED: Pneumococcal 23-Valent Vaccine IM ONE (10:00)
[2018-07-09] MEDS: Lactated Ringer's 1,000 ML IV SCH ×4 (00:45→20:21)
[2018-07-09] MEDS: Meropenem 500 MG in Sodium Chloride 0.9% 100 ML IVPB SCH ×3 (02:02→17:21)
--- NOTE | 2018-07-09 07:20 | CP.PCM.PN ---
Subjective - Date & Time of Evaluation Date of Evaluation: 07/09/18 Time of Evaluation: 07:20 - Subjective Subjective: PGY1 Medicine Progress Note for Dr. Napier Patient was seen and evaluated at bedside this morning. No acute events overnight. No current complaints. Patient tolerating diet. Patient otherwise denies chest pain, abdominal pain, shortness of breath, back pain, lower extremity pain, numbness/tingling, dizziness, headache, nausea, vomiting, fever, and/or chills. Objective - Vital Signs/Intake and Output Vital Signs (last 24 hours): Temp Pulse Resp BP Pulse Ox 97.9 F 78 20 129/70 96 07/09/18 00:00 07/09/18 00:00 07/09/18 00:00 07/09/18 00:00 07/09/18 00:00 Intake and Output: 07/09/18 07/09/18 06:59 18:59 Intake Total 1300 Balance 1300 - Medications Medications: Current Medications Heparin Sodium (Porcine) (Heparin) 5,000 units SC Q8 [facility] Last Admin: 07/09/18 05:56 Dose: 5,000 units Lactated Ringer's (Lactated Ringer's) 1,000 mls @ 150 mls/hr IV .Q6H40M [facility] Last Admin: 07/09/18 00:45 Dose: 150 mls/hr Meropenem 500 mg/ Sodium (Chloride) 100 mls @ 100 mls/hr IVPB Q8H [facility]; Protocol Last Admin: 07/09/18 02:02 Dose: 100 mls/hr Lactobacillus Acidophilus (Bacid Acidophilus) 1 cap PO Q12H [facility] Last Admin: 07/08/18 21:08 Dose: 1 cap - Labs Labs: 07/08/18 06:43 07/08/18 06:43 PT 11.5 SECONDS (9.7-12.2) 07/05/18 10:33 INR 1.1 07/05/18 10:33 - Additional Findings Additional findings: - Constitutional Appears: Cachectic - Head Exam Head Exam: NORMAL INSPECTION - Eye Exam Eye Exam: Normal appearance - ENT Exam ENT Exam: Mucous Membranes Moist - Respiratory Exam Respiratory Exam: NORMAL BREATHING PATTERN. absent: Rhonchi, Wheezes, Stridor - Cardiovascular Exam Cardiovascular Exam: +S1, +S2 - GI/Abdominal Exam GI & Abdominal Exam: Normal Bowel Sounds, Soft - Extremities Exam Additional comments: B/L lower extremity ulcers at medial malleolus DP pulses palpable Erythema dry bilaterally, flaky bilaterally. +1 edema bilaterally superficial, shallow ulcers bilaterally at the medial malleolus: with irregular flat margins, granulation tissue and exudate present Minimal drain from ulcers - Neurological Exam Neurological exam: Alert, Oriented x3 - Skin Skin Exam: Erythema, Warm Assessment and Plan - Assessment and Plan (Free Text) Assessment: Ms. Montague is an 82-year-old F with PMH of non-healing ulcer of the ankle bilaterally and cellulitis presents with "worsening foot problems and swelling in both of my feet." Patient subsequently admitted for non-healing chronic vascular ulcers and failed out-patient treatment of bilateral leg ulcers. Recommended for Patient to be discharged to subacute rehab for completion of IV antibiotics (5 more days total), however Patient expresses wishes to either stay in the hospital for this or to be discharged to home. Will follow-up with director social service. Plan: Non- Healing Lower Extremity Ulcers - Podiatry consulted (Dr. Bowser); rec. appreciated - Vascular surgery consulted (Dr. Davis); rec. appreciated - ID consulted (Dr. Copeland); rec. appreciated - Pending recommendations from ID and Vascular Surgery PVR in vascular lab / vascular evaluation - Discontinued: vanco and zosyn - 2/2 Blood culture negative x48 hours - 07/06: RESULTS: Wound culture RIGHT ankle growth: Pseudomonas; sensitive to meropenem and cipro and Staph Aureus; sensitive to vanco and cipro Antibiotics changed to merrem (requirement is 7 days total, per ID) - Urinalysis unremarkable - SCD contraindicated - F/U BAUTISTA of Bilateral Lower Legs on Sunday07/08/18: if NO arterial issue, then could the bilateral ankle ulcers be secondary to venous insufficiency considering that there is evidence that the legs were edematous at one point. - Wound care consulted; recommendations appreciated - If so and if Vascular and Podiatry Teams agree, could Rabia Boots be helpful for this patient. Failed Out-Patient Treatment of Bilateral LE Ulcers - Follow-up with ID recommendations - Afebrile - Lipid panel within normal limits - TSH within normal limits - No leukocytosis - 07/05: Bilateral ankle x-ray results: No acute fracture, no dislocation, no advanced osteoporosis (see official report) - Vitamin D=37 - ESR elevated at 21 Loose Watery Stools likely side-effect of antibiotics, improved - ID (Dr. Copeland on board) - Lactobacillus 1 cap PO Q12H - out of stock - Vancomycin discontinued History of Ulcerative Colitis - Patient was treated in the past (8 years ago) by unspecified GI physician (Patient could not recall the name) - Patient currently not on any medications for UC. PPx: GI: not indicated at this time DVT: SCD contraindicated; on Heparin 5,000 units SC Q8 Patient was seen and evaluated with Dr. Karthikeyan Hernández PGY1
[2018-07-09 07:39] LABS: BASO # 0.1 K/uL (0.0-0.2); BASO % 0.8 % (0.0-2.0); EOS # 0.6 K/uL (0.0-0.7); EOS % 7.8 % (0.0-4.0); HEMOGLOBIN 11.7 g/dL (11.0-16.0); LYMPH # 1.8 K/uL (1.0-4.3); LYMPH % 23.7 % (20.0-40.0); MEAN CELL VOLUME 95.9 fL (81.0-99.0); MEAN CORPUSCULAR HEMOGLOBIN 31.5 pg (27.0-31.0); MEAN CORPUSCULAR HGB CONC 32.8 g/dL (33.0-37.0); MEAN PLATELET VOLUME 10.1 fL (7.2-11.7); MONO # 0.4 K/uL (0.0-0.8); NEUT # 4.8 K/uL (1.8-7.0); NEUT % 62.7 % (50.0-75.0); RBC 3.71 Mil/uL (3.80-5.20); RED CELL DISTRIBUTION WIDTH 14.2 % (11.5-14.5); WHITE BLOOD COUNT 7.7 K/uL (4.8-10.8)
[2018-07-09 08:24] LABS: ALB/GLOB RATIO 1.2 (1.0-2.1); ALT/SGPT 25 U/L (9-52); AST/SGOT 43 U/L (14-36); BLOOD UREA NITROGEN 8 mg/dL (7-17); CALCIUM 8.5 mg/dl (8.6-10.4); GFR NON-AFRICAN AMERICAN > 60
[2018-07-09] MEDS: Lactobacillus Acidophilus 500 MU Cap PO SCH ×3 (09:14→20:21)
--- NOTE | 2018-07-09 10:19 | CARD ---
APPROVED REPORT Date of service: 07/05/2018 EKG Measurement Heart [id number] <Conclusion> Normal sinus rhythm Voltage criteria for left ventricular hypertrophy Abnormal ECG
--- NOTE | 2018-07-09 10:35 | VASCLAB ---
Date of service: 07/08/2018 STUDY DESCRIPTION: Lower Extremity Arterial Exam (PVR). HISTORY: Leg pain PRIORS: None. TECHNIQUE: Pulse volume recording waveforms and segmental pressures of bilateral lower extremities at multiple levels were obtained. Ankle Brachial Indices (ABIs) were calculated. Report prepared by AKOSUA Encarnacion, RVT RIGHT LOWER EXTREMITY: * Brachial artery: Pressure - 167 mmHg. * High thigh: Pressure - mmHg: Ratio - : PVR waveform - Pulsatile * Low thigh: Pressure - 188 mmHg: Ratio - 1.13 PVR waveform: Pulsatile * Calf: Pressure - 220 mmHg: Ratio - NC PVR waveform: Pulsatile * Posterior tibial Artery: Pressure - mmHg: Ratio - PVR waveform: Pulsatile * Dorsalis pedis Artery: Pressure - 1197 mmHg: Ratio - 1.18 PVR waveform: Pulsatile * Great toe: Pressure - mmHg: Ratio - PVR waveform: Ankle brachial index (BAUTISTA): 1.18 LEFT LOWER EXTREMITY: * Brachial artery: Pressure - mmHg. * High thigh: Pressure - mmHg: Ratio - : PVR waveform - Pulsatile * Low thigh: Pressure - 188 mmHg: Ratio - 1.13 PVR waveform: Pulsatile * Calf: Pressure - 220 mmHg: Ratio - NC PVR waveform: Pulsatile * Posterior tibial Artery: Pressure - mmHg: Ratio - PVR waveform: Pulsatile * Dorsalis pedis Artery: Pressure - 220 mmHg: Ratio - NC PVR waveform: Pulsatile * Great toe: Pressure - mmHg: Ratio - PVR waveform: Pulsatile Ankle brachial index (BAUTISTA): NC OTHER FINDINGS: Right: Left: IMPRESSION: Right: There was no evidence of hemodynamically significant arterial insufficiency in the right lower extremity. Left: The ankle pressure index of the left lower extremity is non-diagnostic due to possible arterial wall calcifications.
--- NOTE | 2018-07-09 11:02 | CP.PCM.PN ---
Subjective - Date & Time of Evaluation Date of Evaluation: 07/09/18 Time of Evaluation: 10:59 - Subjective Subjective: Vascular Surgery Dr. Davis Pt S&E @bedside. No acute events overnight. Pt has no complaints. wants to go home. denies F/C, N/V. tolerating diet. ambulating w/o difficulty. Objective - Vital Signs/Intake and Output Vital Signs (last 24 hours): Temp Pulse Resp BP Pulse Ox 97.2 F L 72 20 133/73 97 07/09/18 07:00 07/09/18 07:00 07/09/18 07:00 07/09/18 07:00 07/09/18 07:00 Intake and Output: 07/09/18 07/09/18 06:59 18:59 Intake Total 2700 Balance 2700 - Medications Medications: Current Medications Heparin Sodium (Porcine) (Heparin) 5,000 units SC Q8 [facility] Last Admin: 07/09/18 05:56 Dose: 5,000 units Lactated Ringer's (Lactated Ringer's) 1,000 mls @ 150 mls/hr IV .Q6H40M [facility] Last Admin: 07/09/18 09:23 Dose: 150 mls/hr Meropenem 500 mg/ Sodium (Chloride) 100 mls @ 100 mls/hr IVPB Q8H [facility]; Protocol Last Admin: 07/09/18 09:25 Dose: 100 mls/hr Lactobacillus Acidophilus (Bacid Acidophilus) 1 cap PO Q12H [facility] Last Admin: 07/09/18 09:14 Dose: Not Given - Labs Labs: 07/09/18 07:31 07/09/18 07:31 PT 11.5 SECONDS (9.7-12.2) 07/05/18 10:33 INR 1.1 07/05/18 10:33 - Constitutional Appears: Non-toxic, No Acute Distress - Head Exam Head Exam: NORMAL INSPECTION - Eye Exam Eye Exam: Normal appearance - ENT Exam ENT Exam: Mucous Membranes Moist - Respiratory Exam Respiratory Exam: Accessory Muscle Use, NORMAL BREATHING PATTERN. absent: Respiratory Distress - Cardiovascular Exam Cardiovascular Exam: REGULAR RHYTHM. absent: Bradycardia, Tachycardia - GI/Abdominal Exam GI & Abdominal Exam: Soft. absent: Distended, Tenderness - Extremities Exam Additional comments: B/L LE w/ ebonie wraps in place B/L LLE warm warm w/o tenderness - Neurological Exam Neurological Exam: Alert, Awake, Oriented x3 - Psychiatric Exam Psychiatric exam: Normal Affect, Normal Mood - Skin Skin Exam: Dry, Intact, Normal Color, Warm Assessment and Plan - Assessment and Plan (Free Text) Assessment: 82 y/o F w/ B/L ankle ulcers Plan: - BAUTISTA/PVR RLE negative for disease; LLE likely chronic arteriosclerosis - b/l dopplerable DPs - may benefit from marjan-boot - cont wound care per Podiatry - no surgical intervention at this time Further recs per Dr. Susan Bourne DO PGY3
--- NOTE | 2018-07-09 11:34 | CP.PCM.PN ---
Subjective - Date & Time of Evaluation Date of Evaluation: 07/09/18 Time of Evaluation: 09:00 - Subjective Subjective: afebrile alert \nad Objective - Vital Signs/Intake and Output Vital Signs (last 24 hours): Temp Pulse Resp BP Pulse Ox 97.2 F L 72 20 133/73 97 07/09/18 07:00 07/09/18 07:00 07/09/18 07:00 07/09/18 07:00 07/09/18 07:00 Intake and Output: 07/09/18 07/09/18 06:59 18:59 Intake Total 2700 Balance 2700 - Medications Medications: Current Medications Heparin Sodium (Porcine) (Heparin) 5,000 units SC Q8 [facility] Last Admin: 07/09/18 05:56 Dose: 5,000 units Lactated Ringer's (Lactated Ringer's) 1,000 mls @ 150 mls/hr IV .Q6H40M [facility] Last Admin: 07/09/18 09:23 Dose: 150 mls/hr Meropenem 500 mg/ Sodium (Chloride) 100 mls @ 100 mls/hr IVPB Q8H [facility]; Protocol Last Admin: 07/09/18 09:25 Dose: 100 mls/hr Lactobacillus Acidophilus (Bacid Acidophilus) 1 cap PO Q12H [facility] Last Admin: 07/09/18 09:14 Dose: Not Given - Labs Labs: 07/09/18 07:31 07/09/18 07:31 PT 11.5 SECONDS (9.7-12.2) 07/05/18 10:33 INR 1.1 07/05/18 10:33 - Constitutional Appears: Well - Head Exam Head Exam: ATRAUMATIC, NORMAL INSPECTION, NORMOCEPHALIC - Eye Exam Eye Exam: EOMI, Normal appearance, PERRL Pupil Exam: NORMAL ACCOMODATION, PERRL - ENT Exam ENT Exam: Mucous Membranes Moist, Normal Exam - Neck Exam Neck Exam: Full ROM, Normal Inspection. absent: Lymphadenopathy - Respiratory Exam Respiratory Exam: Clear to Ausculation Bilateral, NORMAL BREATHING PATTERN - Cardiovascular Exam Cardiovascular Exam: REGULAR RHYTHM, +S1, +S2. absent: Murmur - GI/Abdominal Exam GI & Abdominal Exam: Soft, Normal Bowel Sounds. absent: Tenderness - Rectal Exam Rectal Exam: NORMAL INSPECTION - Extremities Exam Extremities Exam: Full ROM, Normal Capillary Refill, Tenderness. absent: Joint Swelling, Normal Inspection, Pedal Edema Additional comments: wounds c/d/i - Back Exam Back Exam: NORMAL INSPECTION - Neurological Exam Neurological Exam: Alert, Awake, CN II-XII Intact, Normal Gait, Oriented x3 - Psychiatric Exam Psychiatric exam: Normal Affect, Normal Mood - Skin Skin Exam: Dry, Intact, Normal Color, Warm Assessment and Plan (1) Cellulitis Status: Acute - Assessment and Plan (Free Text) Assessment: improving slowly Cont iv rx off loading and wound care consider TCU
[2018-07-10] MEDS: Meropenem 500 MG in Sodium Chloride 0.9% 100 ML IVPB SCH ×2 (01:58→10:50)
[2018-07-10 07:32] LABS: ALB/GLOB RATIO 1.2 (1.0-2.1); ALT/SGPT 23 U/L (9-52); AST/SGOT 39 U/L (14-36); BLOOD UREA NITROGEN 9 mg/dL (7-17); CALCIUM 8.6 mg/dl (8.6-10.4); GFR NON-AFRICAN AMERICAN > 60
[2018-07-10] MEDS: Lactobacillus Acidophilus 500 MU Cap PO SCH (08:44)
--- NOTE | 2018-07-10 09:17 | CP.PCM.PN ---
Subjective - Date & Time of Evaluation Date of Evaluation: 07/10/18 Time of Evaluation: 09:17 Objective - Vital Signs/Intake and Output Vital Signs (last 24 hours): Temp Pulse Resp BP Pulse Ox 98 F 84 20 145/71 96 07/10/18 08:02 07/10/18 08:02 07/10/18 08:02 07/10/18 08:02 07/10/18 08:02 Intake and Output: 07/10/18 07/10/18 06:59 18:59 Intake Total 2350 Balance 2350 - Medications Medications: Current Medications Heparin Sodium (Porcine) (Heparin) 5,000 units SC Q8 [facility] Last Admin: 07/10/18 06:02 Dose: 5,000 units Meropenem 500 mg/ Sodium (Chloride) 100 mls @ 100 mls/hr IVPB Q8H [facility]; Protocol Last Admin: 07/10/18 01:58 Dose: 100 mls/hr Lactobacillus Acidophilus (Bacid Acidophilus) 1 cap PO Q12H [facility] Last Admin: 07/10/18 08:44 Dose: 1 cap - Labs Labs: 07/09/18 07:31 07/10/18 07:04 PT 11.5 SECONDS (9.7-12.2) 07/05/18 10:33 INR 1.1 07/05/18 10:33
[2018-07-10 10:30] LABS: BASO # 0.1 K/uL (0.0-0.2); BASO % 1.3 % (0.0-2.0); EOS # 0.4 K/uL (0.0-0.7); EOS % 5.9 % (0.0-4.0); LYMPH # 1.5 K/uL (1.0-4.3); LYMPH % 20.7 % (20.0-40.0); MEAN CELL VOLUME 96.1 fL (81.0-99.0); MEAN CORPUSCULAR HEMOGLOBIN 31.9 pg (27.0-31.0); MEAN CORPUSCULAR HGB CONC 33.2 g/dL (33.0-37.0); MEAN PLATELET VOLUME 9.9 fL (7.2-11.7); MONO # 0.4 K/uL (0.0-0.8); MONO % 5.1 % (0.0-10.0); NEUT # 4.7 K/uL (1.8-7.0); RBC 4.08 Mil/uL (3.80-5.20); RED CELL DISTRIBUTION WIDTH 14.2 % (11.5-14.5); WHITE BLOOD COUNT 7.1 K/uL (4.8-10.8)
[2018-07-10] MEDS ORDERED: Sodium Chloride 0.9% 1,000 ML IV SCH (11:45)
[2018-07-10] MEDS ORDERED: Ammonium Lactate 12% Lotion (225 g) EXT PRN (12:54)
--- NOTE | 2018-07-10 12:54 | CP.PCM.PN ---
Subjective - Date & Time of Evaluation Date of Evaluation: 07/10/18 Time of Evaluation: 12:49 - Subjective Subjective: Podiatry Progress Note - Dr. Bowser 82 y/o female seen at bedside this morning for bilateral lower extremity edema with weeping superficial ulcers. She states she had no events overnight. Denies any pain to the lower extremities. Anxious to go home. Denies any F/C/N/V/CP/SOB Objective - Vital Signs/Intake and Output Vital Signs (last 24 hours): Temp Pulse Resp BP Pulse Ox 98 F 84 20 145/71 96 07/10/18 08:02 07/10/18 08:02 07/10/18 08:02 07/10/18 08:02 07/10/18 08:02 Intake and Output: 07/10/18 07/10/18 06:59 18:59 Intake Total 2350 Balance 2350 - Medications Medications: Current Medications Heparin Sodium (Porcine) (Heparin) 5,000 units SC Q8 [facility] Last Admin: 07/10/18 06:02 Dose: 5,000 units Meropenem 500 mg/ Sodium (Chloride) 100 mls @ 100 mls/hr IVPB Q8H [facility]; Protocol Last Admin: 07/10/18 10:50 Dose: 100 mls/hr Sodium Chloride (Sodium Chloride 0.9%) 1,000 mls @ 100 mls/hr IV .Q10H [facility] Last Admin: 07/10/18 12:03 Dose: 100 mls/hr Lactobacillus Acidophilus (Bacid Acidophilus) 1 cap PO Q12H [facility] Last Admin: 07/10/18 08:44 Dose: 1 cap - Labs Labs: 07/10/18 10:16 07/10/18 07:04 PT 11.5 SECONDS (9.7-12.2) 07/05/18 10:33 INR 1.1 07/05/18 10:33 - Constitutional Appears: Well, Non-toxic, No Acute Distress - Extremities Exam Additional comments: LE focused exam Vasc: DP/PT pulses faintly palpable to b/l LE. Skin temperature warm to warm from proximal to distal. CFT < 3 seconds to all digits. No edema noted b/l Neuro: Epicritic and protective sensation grossly intact b/l Derm: Left leg- Erythema appears to be resolving, multiple small scabs and wounds noted circumferentially around the leg. 2 cm x 4 cm x 0.1 cm ulceration noted to medial malleolus consistent with venous stasis ulceration. Wound base is fibrogranular with minimal serous drainage appreciated. No malodor present. Right leg- Erythema appears to be resolving, multiple small scabs and wounds noted circumferentially around the leg. 2 cm x 4 cm x 0.1 cm ulceration noted to medial malleolus consistent with venous stasis ulceration. Wound base is fibr ogranular with an approximately 1 cm x 1 cm patch of green/yellow fibrous tissue. Minimal serous drainage appreciated. No malodor present. No tracking, tunneling, undermining or probe to bone appreciated at either ulceration site MSK: No pain on palpation of either ulceration site. ROM to all major joints WNL given age and body habitus. MMT to all major muscle groups WNL given age and body habitus - Neurological Exam Neurological Exam: Alert, Awake, Oriented x3 - Psychiatric Exam Psychiatric exam: Normal Affect, Normal Mood Assessment and Plan - Assessment and Plan (Free Text) Assessment: 82F evaluated for bilateral lower extremity edema with venous stasis ulcerations Plan: Patient seen and evaluated Plan discussed with Dr. Bowser Afebrile, absent leukocytosis Wound cx R ankle: Pseudomonas Aeruginosa, Staph aureus, Enterococcus faecalis ID on consult, appreciate recommendations - Continue abx as per ID Vascular on consult, appreciate recommendations BAUTISTA/PVR RLE negative for disease Podiatry to continue local wound care with Telfa, ABD, DSD SHREYAS B/L No plan for surgical intervention at this time Stable from podiatry standpoint Podiatry will continue to follow while patient in house
--- NOTE | 2018-07-10 13:43 | CP.PCM.DIS ---
<Alona Hernández - Last Filed: 07/10/18 16:19> Provider - Provider Date of Admission: 07/05/18 10:57 Attending physician: Toni Johnston MD Primary care physician: Dr. Corey Consults: 07/05/18 10:02 Podiatry Consult Stat Comment: Consulting Provider: Nikita Bowser Consulting Physician: Nikita Bowser Reason for Consult: non healing ulcers 07/05/18 12:11 Infectious Disease Consult Routine Comment: Consulting Provider: Marquise Copeland Consulting Physician: Marquise Copeland Reason for Consult: b/l venous stasis ulcerations to LE 07/05/18 12:12 Vascular Surgery Routine Comment: Consulting Provider: Eric Davis Jr. Physician Instructions: Reason For Exam: b/l venous stasis ulcerations, assess vasc status 07/05/18 13:52 Physician Consult Routine Comment: Consulting Provider: Marquise Copeland Consulting Physician: Marquise Copeland Reason for Consult: Chronic [place] Ulcer - non healing (bilateral ankle) Time Spent in preparation of Discharge (in minutes): 45 Diagnosis - Discharge Diagnosis (1) Non healing left heel wound Status: Acute Priority: Medium (2) Non-healing ulcer of right ankle Status: Acute Priority: Medium Hospital Course - Lab Results Lab Results: Micro Results 07/05/18 10:15 Blood Blood Culture - Final NO GROWTH AFTER 5 DAYS 07/05/18 10:15 Blood Gram Stain - Final TEST NOT PERFORMED 07/05/18 09:45 Blood Blood Culture - Final NO GROWTH AFTER 5 DAYS 07/05/18 09:45 Blood Gram Stain - Final TEST NOT PERFORMED 07/05/18 10:15 Ankle - Right Gram Stain - Final 07/05/18 10:15 Ankle - Right Wound Culture - Final Pseudomonas Aeruginosa Staphylococcus Aureus Enterococcus Faecalis 07/05/18 23:33 Naris MRSA Culture (Admit) - Final MRSA NOT DETECTED Most Recent Lab Values WBC 7.1 K/uL (4.8-10.8) 07/10/18 10:16 RBC 4.08 Mil/uL (3.80-5.20) 07/10/18 10:16 Hgb 13.0 g/dL (11.0-16.0) 07/10/18 10:16 Hct 39.2 % (34.0-47.0) 07/10/18 10:16 MCV 96.1 fL (81.0-99.0) 07/10/18 10:16 MCH 31.9 pg (27.0-31.0) H 07/10/18 10:16 MCHC 33.2 g/dL (33.0-37.0) 07/10/18 10:16 RDW 14.2 % (11.5-14.5) 07/10/18 10:16 Plt Count 230 K/uL (130-400) 07/10/18 10:16 MPV 9.9 fL (7.2-11.7) 07/10/18 10:16 Neut % (Auto) 67.0 % (50.0-75.0) 07/10/18 10:16 Lymph % (Auto) 20.7 % (20.0-40.0) 07/10/18 10:16 [place] % (Auto) 5.1 % (0.0-10.0) 07/10/18 10:16 Eos % (Auto) 5.9 % (0.0-4.0) H 07/10/18 10:16 Baso % (Auto) 1.3 % (0.0-2.0) 07/10/18 10:16 Neut # (Auto) 4.7 K/uL (1.8-7.0) 07/10/18 10:16 Lymph # (Auto) 1.5 K/uL (1.0-4.3) 07/10/18 10:16 [place] # (Auto) 0.4 K/uL (0.0-0.8) 07/10/18 10:16 Eos # (Auto) 0.4 K/uL (0.0-0.7) 07/10/18 10:16 Baso # (Auto) 0.1 K/uL (0.0-0.2) 07/10/18 10:16 ESR 21 mm/hr (0-20) H 07/06/18 06:36 PT 11.5 SECONDS (9.7-12.2) 07/05/18 10:33 INR 1.1 07/05/18 10:33 Sodium 133 mmol/L (132-148) 07/10/18 07:04 Potassium 3.6 mmol/L (3.6-5.2) 07/10/18 07:04 Chloride 100 mmol/L (98-107) 07/10/18 07:04 Carbon Dioxide 33 mmol/L (22-30) H 07/10/18 07:04 Anion Gap 4 (10-20) L 07/10/18 07:04 BUN 9 mg/dL (7-17) 07/10/18 07:04 Creatinine 0.5 mg/dL (0.7-1.2) L 07/10/18 07:04 Est GFR ( Amer) > 60 07/10/18 07:04 Est GFR (Non-Af Amer) > 60 07/10/18 07:04 Random Glucose 89 mg/dL (65-105) 07/10/18 07:04 Calcium 8.6 mg/dl (8.6-10.4) 07/10/18 07:04 Total Bilirubin 0.3 mg/dL (0.2-1.3) 07/10/18 07:04 AST 39 U/L (14-36) H 07/10/18 07:04 ALT 23 U/L (9-52) 07/10/18 07:04 Alkaline Phosphatase 103 U/L (38-126) 07/10/18 07:04 Total Protein 5.6 g/dL (6.3-8.3) L 07/10/18 07:04 Albumin 3.0 g/dL (3.5-5.0) L 07/10/18 07:04 Globulin 2.6 gm/dL (2.2-3.9) 07/10/18 07:04 Albumin/Globulin Ratio 1.2 (1.0-2.1) 07/10/18 07:04 Triglycerides 103 mg/dL (0-149) D 07/06/18 06:36 Cholesterol 166 mg/dL (0-199) 07/06/18 06:36 LDL Cholesterol Direct 88 mg/dL (0-129) 07/06/18 06:36 HDL Cholesterol 67 mg/dL (30-70) 07/06/18 06:36 25-OH Vitamin D Total 37 ng/mL (30-100) 07/06/18 06:36 TSH 3rd Generation 3.31 mIU/L (0.46-4.68) 07/06/18 06:36 Urine Color Straw (YELLOW) 07/05/18 14:45 Urine Clarity Clear (Clear) 07/05/18 14:45 Urine pH 7.0 (5.0-8.0) 07/05/18 14:45 Ur Specific [place] 1.008 (1.003-1.030) 07/05/18 14:45 Urine Protein Negative mg/dL (NEGATIVE) 07/05/18 14:45 Urine Glucose (UA) Normal mg/dL (Normal) 07/05/18 14:45 Urine Ketones Negative mg/dL (NEGATIVE) 07/05/18 14:45 Urine Blood 1+ (NEGATIVE) H 07/05/18 14:45 Urine Nitrate Negative (NEGATIVE) 07/05/18 14:45 Urine Bilirubin Negative (NEGATIVE) 07/05/18 14:45 Urine Urobilinogen Normal mg/dL (0.2-1.0) 07/05/18 14:45 Ur Leukocyte Esterase Neg Arturo/uL (Negative) 07/05/18 14:45 Urine WBC (Auto) < 1 /hpf (0-5) 07/05/18 14:45 Urine RBC (Auto) 5 /hpf (0-3) H 07/05/18 14:45 - Hospital Course Hospital Course: Discharge Summary and Hospital Course for Dr. Laboy Ms. Montague is an 82-year-old F with PMH of non-healing ulcer of the ankle bilaterally and cellulitis presents with "worsening foot problems and swelling in both of my feet." Patient stated it has been increasingly difficult for her to walk and "get around." Patient reported she has dealt with non-healing ulcers in the past, and she has been followed by a physician on [facility] (Patient does not recall name of physician) for a couple of months where she gets wound care regularly. Furthermore, the Patient was recently seen by Dr. Corey's who sent her to the ED. For full details of Patient's history, please see complete chart. Patient was subsequently admitted for non-healing ulcers of lower extremities bilaterally and failed out-patient therapy. Podiatry was consulted (Dr. Bowser). CBC revealed no leukocytosis. Patient was afebrile. Patient was started on empiric antibiotics. ID was consulted (Dr. Copeland). Blood cultures were obtained and were negative. Wound cultures were obtained and ultimately revealed Pseudomonas Aeruginosa, Staphlococcus Aureus, and Enterococcus Faecalis. Patient was changed to therapeutic antibiotic (Merrem IVPB). Throughout her hospitalization, the Patient denied any lower extremity pain. Bilateral Ankles were x-rayed and were negative for acute fracture. Lower extremity ultrasound was unremarkable for DVT. PT evaluation recommended [facility] upon discharge from the hospital. On day of discharge, Patient is both clinically stable and medically optimized for discharge to [facility]. Discharge instructions were provided to the Patient both verbally and written, to the level of the Patient's comprehension. Patient both understands and agrees to all instructions. Please see complete chart for detail. Patient is discharged with IV antibiotics for 4 days (Merrem 500mg/50mL NS Q8H IVPB) Patient was seen and case discussed in detail with Dr. Narda Hernández PGY1 Discharge Exam - Head Exam Head Exam: ATRAUMATIC, NORMAL INSPECTION, NORMOCEPHALIC - Additional Findings Additional findings: - Constitutional Appears: Cachectic - Head Exam Head Exam: NORMAL INSPECTION - Eye Exam Eye Exam: Normal appearance - ENT Exam ENT Exam: Mucous Membranes Moist - Respiratory Exam Respiratory Exam: NORMAL BREATHING PATTERN. absent: Rhonchi, Wheezes, Stridor - Cardiovascular Exam Cardiovascular Exam: +S1, +S2 - GI/Abdominal Exam GI & Abdominal Exam: Normal Bowel Sounds, Soft - Extremities Exam Additional comments: B/L lower extremity ulcers at medial malleolus DP pulses palpable Erythema dry bilaterally, flaky bilaterally. +1 edema bilaterally superficial, shallow ulcers bilaterally at the medial malleolus: with irregular flat margins, granulation tissue and exudate present Minimal drain from ulcers Discharge Plan - Discharge Medications Prescriptions: MEROPENEM 500 MG in NS [Merrem IV 500 MG/NS 50 ML] 500 mg IV Q8H 4 Days piggyback - Follow Up Plan Condition: STABLE Disposition: REHAB FACILITY/REHAB UNIT Instructions: Cellulitis (Skin Infection), Adult (DC) Additional Instructions: Please continue wound care daily (bilateral medial malleoli) Please continue Merrem 500mg IVPB Q8H for 4 more days Please follow-up with Dr. Corey within 3-5 days of discharged from the hospital Please follow-up with Podiatry within 3-5 days of being discharged from the hospital Please return to the ED if your symptoms recur. Referrals: Marquise Copeland MD [Staff Provider] - Nikita Bowser DPM [Staff Provider] - <Laboy,Peter H - Last Filed: 07/10/18 17:48> Provider - Provider Date of Admission: 07/05/18 10:57 Attending physician: Toni Johnston MD Consults: 07/05/18 10:02 Podiatry Consult Stat Comment: Consulting Provider: Nikita Bowser Consulting Physician: Nikita Bowser Reason for Consult: non healing ulcers 07/05/18 12:11 Infectious Disease Consult Routine Comment: Consulting Provider: Marquise Copeland Consulting Physician: Marquise Copeland Reason for Consult: b/l venous stasis ulcerations to LE 07/05/18 12:12 Vascular Surgery Routine Comment: Consulting Provider: Eric Davis Jr. Physician Instructions: Reason For Exam: b/l venous stasis ulcerations, assess vasc status 07/05/18 13:52 Physician Consult Routine Comment: Consulting Provider: Marquise Copeland Consulting Physician: Marquise Copeland Reason for Consult: Chronic [place] Ulcer - non healing (bilateral ankle) Hospital Course - Lab Results Lab Results: Micro Results 07/05/18 10:15 Blood Blood Culture - Final NO GROWTH AFTER 5 DAYS 07/05/18 10:15 Blood Gram Stain - Final TEST NOT PERFORMED 07/05/18 09:45 Blood Blood Culture - Final NO GROWTH AFTER 5 DAYS 07/05/18 09:45 Blood Gram Stain - Final TEST NOT PERFORMED 07/05/18 10:15 Ankle - Right Gram Stain - Final 07/05/18 10:15 Ankle - Right Wound Culture - Final Pseudomonas Aeruginosa Staphylococcus Aureus Enterococcus Faecalis 07/05/18 23:33 Naris MRSA Culture (Admit) - Final MRSA NOT DETECTED Most Recent Lab Values WBC 7.1 K/uL (4.8-10.8) 07/10/18 10:16 RBC 4.08 Mil/uL (3.80-5.20) 07/10/18 10:16 Hgb 13.0 g/dL (11.0-16.0) 07/10/18 10:16 Hct 39.2 % (34.0-47.0) 07/10/18 10:16 MCV 96.1 fL (81.0-99.0) 07/10/18 10:16 MCH 31.9 pg (27.0-31.0) H 07/10/18 10:16 MCHC 33.2 g/dL (33.0-37.0) 07/10/18 10:16 RDW 14.2 % (11.5-14.5) 07/10/18 10:16 Plt Count 230 K/uL (130-400) 07/10/18 10:16 MPV 9.9 fL (7.2-11.7) 07/10/18 10:16 Neut % (Auto) 67.0 % (50.0-75.0) 07/10/18 10:16 Lymph % (Auto) 20.7 % (20.0-40.0) 07/10/18 10:16 [place] % (Auto) 5.1 % (0.0-10.0) 07/10/18 10:16 Eos % (Auto) 5.9 % (0.0-4.0) H 07/10/18 10:16 Baso % (Auto) 1.3 % (0.0-2.0) 07/10/18 10:16 Neut # (Auto) 4.7 K/uL (1.8-7.0) 07/10/18 10:16 Lymph # (Auto) 1.5 K/uL (1.0-4.3) 07/10/18 10:16 [place] # (Auto) 0.4 K/uL (0.0-0.8) 07/10/18 10:16 Eos # (Auto) 0.4 K/uL (0.0-0.7) 07/10/18 10:16 Baso # (Auto) 0.1 K/uL (0.0-0.2) 07/10/18 10:16 ESR 21 mm/hr (0-20) H 07/06/18 06:36 PT 11.5 SECONDS (9.7-12.2) 07/05/18 10:33 INR 1.1 07/05/18 10:33 Sodium 133 mmol/L (132-148) 07/10/18 07:04 Potassium 3.6 mmol/L (3.6-5.2) 07/10/18 07:04 Chloride 100 mmol/L (98-107) 07/10/18 07:04 Carbon Dioxide 33 mmol/L (22-30) H 07/10/18 07:04 Anion Gap 4 (10-20) L 07/10/18 07:04 BUN 9 mg/dL (7-17) 07/10/18 07:04 Creatinine 0.5 mg/dL (0.7-1.2) L 07/10/18 07:04 Est GFR ( Amer) > 60 07/10/18 07:04 Est GFR (Non-Af Amer) > 60 07/10/18 07:04 Random Glucose 89 mg/dL (65-105) 07/10/18 07:04 Calcium 8.6 mg/dl (8.6-10.4) 07/10/18 07:04 Total Bilirubin 0.3 mg/dL (0.2-1.3) 07/10/18 07:04 AST 39 U/L (14-36) H 07/10/18 07:04 ALT 23 U/L (9-52) 07/10/18 07:04 Alkaline Phosphatase 103 U/L (38-126) 07/10/18 07:04 Total Protein 5.6 g/dL (6.3-8.3) L 07/10/18 07:04 Albumin 3.0 g/dL (3.5-5.0) L 07/10/18 07:04 Globulin 2.6 gm/dL (2.2-3.9) 07/10/18 07:04 Albumin/Globulin Ratio 1.2 (1.0-2.1) 07/10/18 07:04 Triglycerides 103 mg/dL (0-149) D 07/06/18 06:36 Cholesterol 166 mg/dL (0-199) 07/06/18 06:36 LDL Cholesterol Direct 88 mg/dL (0-129) 07/06/18 06:36 HDL Cholesterol 67 mg/dL (30-70) 07/06/18 06:36 25-OH Vitamin D Total 37 ng/mL (30-100) 07/06/18 06:36 TSH 3rd Generation 3.31 mIU/L (0.46-4.68) 07/06/18 06:36 Urine Color Straw (YELLOW) 07/05/18 14:45 Urine Clarity Clear (Clear) 07/05/18 14:45 Urine pH 7.0 (5.0-8.0) 07/05/18 14:45 Ur Specific [place] 1.008 (1.003-1.030) 07/05/18 14:45 Urine Protein Negative mg/dL (NEGATIVE) 07/05/18 14:45 Urine Glucose (UA) Normal mg/dL (Normal) 07/05/18 14:45 Urine Ketones Negative mg/dL (NEGATIVE) 07/05/18 14:45 Urine Blood 1+ (NEGATIVE) H 07/05/18 14:45 Urine Nitrate Negative (NEGATIVE) 07/05/18 14:45 Urine Bilirubin Negative (NEGATIVE) 07/05/18 14:45 Urine Urobilinogen Normal mg/dL (0.2-1.0) 07/05/18 14:45 Ur Leukocyte Esterase Neg Arturo/uL (Negative) 07/05/18 14:45 Urine WBC (Auto) < 1 /hpf (0-5) 07/05/18 14:45 Urine RBC (Auto) 5 /hpf (0-3) H 07/05/18 14:45 Attending/Attestation - Attestation I have personally seen and examined this patient.: Yes I have fully participated in the care of the patient.: Yes I have reviewed all pertinent clinical information, including history, physical exam and plan: Yes Notes (Text): 07/10/18 17:47 Medical attending: Patient was seen and examined by me. Agree with the above note by the resident The patient was not in any acute distress when I came and saw the patient The patient will later today be going to [facility] for further abx, physical therapy, as well as ongoing wound care for the lower extremities thank you Migue Laboy
[2018-07-10 15:46] VITALS: BP 133/67; PULSE 79; TEMP 98.3; O2SAT 95
== END 2018-07-10 17:06 | DRG 603 ==
LOC: C.ER 08:34 → C.3T 10:57
PROVIDERS: ADMIT Internal Medicine; ATTEND Internal Medicine
DX: L03.116 Cellulitis of left lower limb (principal); L97.329 Non-pressure chronic ulcer of left ankle with unspecified severity; L97.319 Non-pressure chronic ulcer of right ankle with unspecified severity; K51.90 Ulcerative colitis, unspecified, without complications; K50.90 Crohn's disease, unspecified, without complications; L03.115 Cellulitis of right lower limb; I87.2 Venous insufficiency (chronic) (peripheral); B96.5 Pseudomonas (aeruginosa) (mallei) (pseudomallei) as the cause of diseases classified elsewhere; B95.2 Enterococcus as the cause of diseases classified elsewhere; B95.7 Other staphylococcus as the cause of diseases classified elsewhere; M81.0 Age-related osteoporosis without current pathological fracture; R19.7 Diarrhea, unspecified; T36.1X5A Adverse effect of cephalosporins and other beta-lactam antibiotics, initial encounter; Z87.891 Personal history of nicotine dependence; Z85.038 Personal history of other malignant neoplasm of large intestine

== ENCOUNTER 2018-09-06 08:39 | Inpatient (IN) | payer MEDICARE ==
--- NOTE | 2018-09-06 11:04 | RAD ---
Date of service: 09/06/2018 PROCEDURE: Left Knee Radiographs. HISTORY: Pain. COMPARISON: None. TECHNIQUE: 2 views obtained. FINDINGS: BONES: No acute fracture or destructive bony lesion identified. Diffuse osteopenia suggests osteoporosis. JOINTS: There is joint space narrowing in all three compartments compatible with mild to moderate osteoarthritis. JOINT EFFUSION: None. OTHER FINDINGS: None. IMPRESSION: No acute fracture or destructive bony left knee. Mild to moderate osteoarthritis.
--- NOTE | 2018-09-06 12:14 | C.PDOC ---
History Of Present Illness 82 year old female presents to the ED for evaluation after she slipped and fell at home while getting up to go to the bathroom earlier today. Patient complains of left knee pain at this time. She denies chest pain, palpitations, shortness of breath and dizziness. Time Seen by Provider: 09/06/18 08:54 Chief Complaint (Nursing): Lower Extremity Problem/Injury History Per: Patient History/Exam Limitations: no limitations Onset/Duration Of Symptoms: Hrs Current Symptoms Are (Timing): Still Present Additional History Per: Patient - Knee Description Of Injury: Fell (left ) Past Medical History Reviewed: Historical Data, Nursing Documentation, Vital Signs Vital Signs: Last Vital Signs Temp 98.2 F 09/06/18 08:48 Pulse 91 H 09/06/18 08:48 Resp 20 09/06/18 08:48 BP 175/90 H 09/06/18 08:48 Pulse Ox 98 09/06/18 08:48 - Medical History PMH: Crohn's Disease (ULCERATIVE COLITIS), Fractures (rt hip fracture s/p fall; had sx done at ), Malignancy (COLON) Surgical History: No Surg Hx - [facility] Procedures LAPAROSCOPIC CHOLECYSTECTOMY (08/30/13) LAPAROSCOPIC ROBOTIC ASSISTED PROCEDURE (08/30/13) OPEN REDUC-INT FIX FEMUR (06/16/13) PACKED CELL TRANSFUSION (06/16/13) Family History: States: Unknown Family Hx - Social History Hx Tobacco Use: No Hx Alcohol Use: No Hx Substance Use: No - Immunization History Hx Tetanus Toxoid Vaccination: No Hx Influenza Vaccination: Yes Hx Pneumococcal Vaccination: No Review Of Systems Cardiovascular: Negative for: Chest Pain Respiratory: Negative for: Shortness of Breath Neurological: Negative for: Dizziness Physical Exam - Physical Exam Appears: Non-toxic, Other (appears to be in mild pain, thin-appearing ) Skin: Normal Color, Warm, Dry Head: Atraumatic, Normacephalic Eye(s): bilateral: Normal Inspection Oral Mucosa: Moist Neck: Supple Chest: Symmetrical, No Deformity, No Tenderness Cardiovascular: Rhythm Regular, No Murmur Respiratory: Normal Breath Sounds, No Rales, No Rhonchi, No Wheezing Extremity: Tenderness (mild tenderness to left knee and left middle thigh ), C apillary Refill (less than 2 seconds ), No Swelling (left knee ), Other (no external rotation or swelling to left lower extremity ) Extremity: Left: Hips Non-Tender Pulses: Left Dorsalis Pedis: Normal, Right Dorsalis Pedis: Normal Neurological/Psych: Oriented x3, Normal Speech, Normal Cognition ED Course And Treatment - Laboratory Results Result Diagrams: 09/06/18 13:42 09/06/18 13:42 O2 Sat by Pulse Oximetry: 98 (on RA ) Pulse Ox Interpretation: Normal - CT Scan/US CT Pelvis Other Rad Studies (CT/US): Read By Radiologist, Radiology Report Reviewed CT/US Interpretation: Date of service: 09/06/2018. PROCEDURE: CT pelvis. HISTORY: R/OW LEFT HIP FX. COMPARISON: 08/30/2013. TECHNIQUE: 2.5 mm contiguous axial sections were acquired through the pelvis. Sagittal and coronal images were reformatted from the axial scan. FINDINGS: There is a subtle nondisplaced intertrochanteric fracture of the left hip. No additional fracture is identified. The patient is status post ORIF right intertrochanteric fracture. Orthopedic hardware appears intact. There is no additional fracture identified. There is no lytic or blastic osseous lesion identified. IMPRESSION: Nondisplaced intertrochanteric fracture of the left hip. Hip/Pelvis XR Other Rad Studies (CT/US): Read By Radiologist, Radiology Report Reviewed CT/US Interpretation: PROCEDURE: Left Hip X-ray Radiographs. HISTORY: LEFT THIGH/HIP PAIN AFTER FALL. COMPARISON: None. TECHNIQUE: 2 views obtained. FINDINGS: BONES: The pelvic ring is intact. There is diffuse bone demineralization. There is an apparent lucency in the left intertrochanteric region. No evidence of bone destruction. Bone alignment is normal. Status post reduction and internal fixation for an old healed right intertrochanteric fracture. JOINTS: There is mild degenerative osteoarthrosis in the hip joints with mild reduced joint spaces and marginal spurring. The sacroiliac joints are normal. SOFT TISSUES: Normal. OTHER FINDINGS: None. IMPRESSION: Apparent lucency in the left intertrochanteric region concerning for an acute nondisplaced intertrochanteric fracture. Please note occult fractures cannot be excluded on plain radiographs. If there is a persistent clinical concern, correlation with CT scan/MRI of the hip is advised for further evaluation. The final report is tagged to the PA review folder. Knee XR Other Rad Studies (CT/US): Read By Radiologist, Radiology Report Reviewed CT/US Interpretation: Date of service: 09/06/2018. PROCEDURE: Left Knee Radiographs. HISTORY: Pain. COMPARISON: None. TECHNIQUE: 2 views obtained. FINDINGS: BONES: No acute fracture or destructive bony lesion identified. Diffuse osteopenia suggests osteoporosis. JOINTS: There is joint space narrowing in all three compartments compatible with mild to moderate osteoarthritis. JOINT EFFUSION: None. OTHER FINDINGS: None. IMPRESSION: No acute fracture or destructive bony left knee. Mild to moderate osteoarthritis. Progress Note: Xrays ordered and reviewed - patient refused pain medications. Xray suspicious for fx - CT scan pelvis and blood work ordered. Disposition Counseled Patient/Family Regarding: Diagnosis, Need For Followup, Rx Given - Disposition Disposition Time: 16:00 Condition: STABLE - POA Present On Arrival: Falls Or Trauma - Clinical Impression Clinical Impression: Intertrochanteric fracture of left hip - Scribe Statement The provider has reviewed the documentation as recorded by the Scribe (Lidia Cooper) Provider Attestation: All medical record entries made by the Scribe were at my direction and personally dictated by me. I have reviewed the chart and agree that the record accurately reflects my personal performance of the history, physical exam, medical decision making, and the department course for this patient. I have also personally directed, reviewed, and agree with the discharge instructions and disposition.
--- NOTE | 2018-09-06 12:57 | RAD ---
PROCEDURE: Left Hip X-ray Radiographs. HISTORY: LEFT THIGH/HIP PAIN AFTER FALL COMPARISON: None. TECHNIQUE: 2 views obtained. FINDINGS: BONES: The pelvic ring is intact. There is diffuse bone demineralization. There is an apparent lucency in the left intertrochanteric region. No evidence of bone destruction. Bone alignment is normal. Status post reduction and internal fixation for an old healed right intertrochanteric fracture. JOINTS: There is mild degenerative osteoarthrosis in the hip joints with mild reduced joint spaces and marginal spurring. The sacroiliac joints are normal. SOFT TISSUES: Normal. OTHER FINDINGS: None. IMPRESSION: Apparent lucency in the left intertrochanteric region concerning for an acute nondisplaced intertrochanteric fracture. Please note occult fractures cannot be excluded on plain radiographs. If there is a persistent clinical concern, correlation with CT scan/MRI of the hip is advised for further evaluation. The final report is tagged to the PA review folder.
[2018-09-06 13:56] LABS: BASO % 0.5 % (0.0-2.0); EOS # 0.1 K/uL (0.0-0.7); EOS % 0.8 % (0.0-4.0); LYMPH # 1.4 K/uL (1.0-4.3); LYMPH % 14.6 % (20.0-40.0); MEAN CELL VOLUME 93.4 fL (81.0-99.0); MEAN CORPUSCULAR HEMOGLOBIN 31.4 pg (27.0-31.0); MEAN CORPUSCULAR HGB CONC 33.6 g/dL (33.0-37.0); MEAN PLATELET VOLUME 9.9 fL (7.2-11.7); MONO # 0.7 K/uL (0.0-0.8); MONO % 7.2 % (0.0-10.0); NEUT # 7.6 K/uL (1.8-7.0); NEUT % 76.9 % (50.0-75.0); RBC 3.83 Mil/uL (3.80-5.20); RED CELL DISTRIBUTION WIDTH 13.9 % (11.5-14.5); WHITE BLOOD COUNT 9.8 K/uL (4.8-10.8)
[2018-09-06 14:13] LABS: ALB/GLOB RATIO 1.5 (1.0-2.1); BLOOD UREA NITROGEN 14 mg/dL (7-17); CALCIUM 8.9 mg/dl (8.6-10.4); GFR NON-AFRICAN AMERICAN > 60
[2018-09-06 14:15] LABS: ALT/SGPT 16 U/L (9-52); AST/SGOT 48 U/L (14-36)
[2018-09-06 14:40] LABS: INR 1.1
--- NOTE | 2018-09-06 15:43 | CT ---
Date of service: 09/06/2018 PROCEDURE: CT pelvis HISTORY: R/OW LEFT HIP FX COMPARISON: 08/30/2013 TECHNIQUE: 2.5 mm contiguous axial sections were acquired through the pelvis. Sagittal and coronal images were reformatted from the axial scan. FINDINGS: There is a subtle nondisplaced intertrochanteric fracture of the left hip. No additional fracture is identified. The patient is status post ORIF right intertrochanteric fracture. Orthopedic hardware appears intact. There is no additional fracture identified. There is no lytic or blastic osseous lesion identified. IMPRESSION: Nondisplaced intertrochanteric fracture of the left hip.
--- NOTE | 2018-09-06 17:06 | CP.PCM.HP ---
<Moon Bal - Last Filed: 09/06/18 18:29> History of Present Illness - History of Present Illness History of Present Illness: CC: Fall on bottom/back Patient is an 82 year old female with pmhx of UC, non-healing B/L LE ulcers, pancreatitis presented to ED for evaluation on diffuse body pain s/p fall this morning. Patient reports she awoke at 2am to use the restroom, and sustained a fall to bottom/back as it was dark. Patient reports she remained on the ground from 2-7am until she called a friend to bring her in for further evaluation. Patient reports an episode of urination while down, however voluntary 2/2 inability to get to restroom. Denies trauma to head, LOC, PIERCE, incontinence. Patient is unable to localize pain and says pain is tolerable as long as she remains immobile. Of note: pt was recently admitted for treatment of non-healing B/L LE ulcers and treated with Merrem for wound cxs growing Pseudomonas, enterococcus and staph, blood cxs negative; released to [facility] for further treatment. Patient had just been discharged home recently. 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 absent: Chest Pain, Dyspnea - Respiratory Respiratory: absent: Cough, Dyspnea - Gastrointestinal Gastrointestinal: absent: Diarrhea, Nausea, Vomiting - Genitourinary Genitourinary: Nocturia - Neurological Neurological: Syncope. absent: Abnormal Gait, Dizziness, Headaches - Hematologic/Lymphatic Hematologic: absent: Easy Bleeding Past Patient History - Infectious Disease Hx of Infectious Diseases: None - Past Medical History & Family History Past Medical History?: Yes - Past Social History Smoking Status: Former Smoker - CARDIAC Hx Cardiac Disorders: No - PULMONARY Hx Respiratory Disorders: No - NEUROLOGICAL Hx Neurological Disorder: No - HEENT Hx HEENT Problems: No - ENDOCRINE/METABOLIC Hx Endocrine Disorders: No - HEMATOLOGICAL/ONCOLOGICAL Hx Cancer: Yes - INTEGUMENTARY Hx Dermatological Problems: No - MUSCULOSKELETAL/RHEUMATOLOGICAL Hx Fractures: Yes (rt hip fracture s/p fall; had sx done at ) - GASTROINTESTINAL Hx Crohn's Disease: Yes (ULCERATIVE COLITIS) - GENITOURINARY/GYNECOLOGICAL Hx Genitourinary Disorders: Yes Hx Incontinence: Yes - PSYCHIATRIC Hx Substance Use: No - SURGICAL HISTORY Hx Surgeries: Yes Hx Orthopedic Surgery: Yes (RIGHT HIP) Other/Comment: STOMACH RESECTION - ANESTHESIA Hx Anesthesia: Yes Hx Anesthesia Reactions: No Hx Malignant Hyperthermia: No Meds Allergies/Adverse Reactions: Allergies Allergy/AdvReac Type Severity Reaction Status Date / Time lidocaine Allergy Verified 07/05/18 08:49 Physical Exam - Constitutional Appears: Non-toxic, No Acute Distress, Cachectic - Head Exam Head Exam: ATRAUMATIC, NORMAL INSPECTION, NORMOCEPHALIC - Eye Exam Eye Exam: EOMI, Normal appearance - ENT Exam ENT Exam: Mucous Membranes Dry, Normal Exam - Neck Exam Neck exam: Positive for: Normal Inspection. Negative for: Lymphadenopathy - Respiratory Exam Respiratory Exam: Decreased Breath Sounds (right), Rales (right), NORMAL BR EATHING PATTERN - Cardiovascular Exam Cardiovascular Exam: REGULAR RHYTHM, +S1, +S2. absent: Tachycardia - GI/Abdominal Exam GI & Abdominal Exam: Normal Bowel Sounds, Soft. absent: Tenderness - Extremities Exam Extremities exam: Positive for: normal capillary refill, pedal pulses present. Negative for: calf tenderness, normal inspection, pedal edema Additional comments: LLE: No swelling/ecchymosis/erythema, non TTP(light) Left medial malleolus ulcer, well healing, discolored RLE: Medial malleolus ulcer, well healing, crusted over, no active drainage LUE: elbow, eschars on posterior aspect - Neurological Exam Neurological exam: Alert - Psychiatric Exam Psychiatric exam: Normal Affect, Normal Mood - Skin Skin Exam: Dry, Warm Additional comments: Dry on exam Results - Vital Signs Recent Vital Signs: Last Vital Signs Temp 98.1 F 09/06/18 16:56 Pulse 86 09/06/18 16:56 Resp 19 09/06/18 16:56 BP 138/75 09/06/18 16:56 Pulse Ox 98 09/06/18 16:56 - Labs Result Diagrams: 09/06/18 13:42 09/06/18 13:42 Labs: Laboratory Results - last 24 hr 09/06/18 09/06/18 09/06/18 13:42 13:42 14:22 WBC 9.8 RBC 3.83 Hgb 12.0 Hct 35.8 MCV 93.4 D MCH 31.4 H MCHC 33.6 RDW 13.9 Plt Count 212 MPV 9.9 Neut % (Auto) 76.9 H Lymph % (Auto) 14.6 L Banks % (Auto) 7.2 Eos % (Auto) 0.8 Baso % (Auto) 0.5 Neut # (Auto) 7.6 H Lymph # (Auto) 1.4 Banks # (Auto) 0.7 Eos # (Auto) 0.1 Baso # (Auto) 0.0 PT 12.0 INR 1.1 APTT 30 Sodium 134 Potassium 4.2 Chloride 99 Carbon Dioxide 31 H Anion Gap 9 L BUN 14 Creatinine 0.5 L Est GFR ( Amer) > 60 Est GFR (Non-Af Amer) > 60 Random Glucose 107 H D Calcium 8.9 Total Bilirubin 0.8 AST 48 H D ALT 16 Alkaline Phosphatase 157 H D Total Protein 6.6 Albumin 4.0 Globulin 2.6 Albumin/Globulin Ratio 1.5 Assessment & Plan - Assessment and Plan (Free Text) Assessment: 82 year old female with pmhx of UC, pancreatitis and recent B/L LE ulcers admitted s/p fall Plan: Acute Left Hip Fracture Imaging: Left knee xray: negative for acute pathology Hip/Pelvis xray: concern for left hip fracture, recommend CT Left hip CT: Non-displaced intertrochanteric fracture of left hip -fall precautions -purewick 2/2 immobility -f/u echo/EKG -Pain medication PRN, Tylenol-moderate/percocet severe -Cardio consult, Dr. Benz; requesting cardiac clearance -Ortho consult, Dr. Marin S/P Fall -f/u Head CT w/o contrast -f/u CPK 2/2 prolonged immobility -f/u CXR 2/2 rales and decreased breath sounds on right -f/u EKG -f/u UA LE ulcers, chronic -previously treated by Podiatry and ID with Merrem for wounds + for Pseudomonas, staph, enterococcus -Wrapped -SCD contraindication -Podiatry consult, Dr. Mague membreno -f/u left elbow Xray 3 view for further eval UC, chronic, stable -last exacerbation 8+ yrs ago treated w/ meds and dietary modification Ppx VTE: heparin q8 on hold pending head CT GI: not indicated NS @80 Dispo: Pt not cleared for any surgical procedure pending cardiac clearance Discussed with Dr. Cooper -Moon Bal, PGY-1 <Cj Cooper - Last Filed: 09/08/18 20:06> Results - Vital Signs Recent Vital Signs: Last Vital Signs Temp 97.6 F 09/08/18 16:17 Pulse 80 09/08/18 16:17 Resp 20 09/08/18 16:17 BP 113/65 09/08/18 16:17 Pulse Ox 95 09/08/18 16:17 - Labs Result Diagrams: 09/08/18 07:35 09/08/18 07:35 Labs: Laboratory Results - last 24 hr 09/08/18 09/08/18 07:35 07:35 WBC 7.8 RBC 3.62 L Hgb 11.4 Hct 34.1 MCV 94.2 MCH 31.6 H MCHC 33.5 RDW 13.5 Plt Count 210 MPV 9.7 Neut % (Auto) 67.2 Lymph % (Auto) 18.0 L Banks % (Auto) 7.6 Eos % (Auto) 6.6 H Baso % (Auto) 0.6 Neut # (Auto) 5.2 Lymph # (Auto) 1.4 Banks # (Auto) 0.6 Eos # (Auto) 0.5 Baso # (Auto) 0.0 Sodium 134 Potassium 3.5 L Chloride 105 Carbon Dioxide 28 Anion Gap 5 L BUN 15 Creatinine 0.6 L Est GFR ( Amer) > 60 Est GFR (Non-Af Amer) > 60 Random Glucose 110 H D Calcium 8.1 L Total Bilirubin 0.3 AST 26 ALT 12 Alkaline Phosphatase 124 Total Protein 5.4 L Albumin 3.0 L Globulin 2.4 Albumin/Globulin Ratio 1.2 Attending/Attestation - Attestation I have personally seen and examined this patient.: Yes I have fully participated in the care of the patient.: Yes I have reviewed all pertinent clinical information: Yes Notes (Text): 09/08/18 20:06 This is a late entry. History, Physical, Assessment and Plan and all orders were gone over with resident Dr. Valeriano Cooper D.O.
[2018-09-06] MEDS ORDERED: Oxycodone/Acetaminophen 5/325 mg Tab PO PRN (18:00)
[2018-09-06] MEDS: Sodium Chloride 0.9% 1,000 ML IV SCH (18:48)
[2018-09-06 20:55] LABS: URINE BILIRUBIN NEGATIVE (NEGATIVE); URINE BLOOD 1+ (NEGATIVE); URINE CLARITY Clear (Clear); URINE COLOR Yellow (YELLOW); URINE GLUCOSE (UA) NORMAL (Normal); URINE LEUKOCYTE ESTERASE NEG Leu/uL (Negative); URINE PROTEIN NEGATIVE (NEGATIVE); URINE UROBILINOGEN NORMAL mg/dL (0.2-1.0)
--- NOTE | 2018-09-06 22:01 | CT ---
Date of service: 09/06/2018 PROCEDURE: CT HEAD WITHOUT CONTRAST. HISTORY: s/p fall COMPARISON: None available. TECHNIQUE: Axial computed tomography images were obtained through the head/brain without intravenous contrast. Radiation dose: Total exam DLP = 996.51 mGy-cm. This CT exam was performed using one or more of the following dose reduction techniques: Automated exposure control, adjustment of the mA and/or kV according to patient size, and/or use of iterative reconstruction technique. FINDINGS: HEMORRHAGE: No intracranial hemorrhage. BRAIN: No mass effect or edema. Periventricular white matter changes suggestive but nonspecific for chronic microvascular ischemic disease. Mild volume loss is noted. VENTRICLES: Unremarkable. No hydrocephalus. CALVARIUM: Unremarkable. PARANASAL SINUSES: Unremarkable as visualized. No significant inflammatory changes. MASTOID AIR CELLS: Unremarkable as visualized. No inflammatory changes. OTHER FINDINGS: None. IMPRESSION: No evidence of acute intracranial hemorrhage mass effect or midline shift. Volume loss and chronic microvascular white matter ischemic changes. Preliminary report was submitted by [facility] Radiology contains concordant findings.
[2018-09-07] MEDS: Sodium Chloride 0.9% 1,000 ML IV SCH ×2 (06:20→14:48)
[2018-09-07 07:06] LABS: BASO % 0.5 % (0.0-2.0); EOS # 0.1 K/uL (0.0-0.7); EOS % 1.7 % (0.0-4.0); HEMOGLOBIN 12.3 g/dL (11.0-16.0); LYMPH # 1.2 K/uL (1.0-4.3); LYMPH % 14.5 % (20.0-40.0); MEAN CELL VOLUME 94.6 fL (81.0-99.0); MEAN CORPUSCULAR HEMOGLOBIN 30.9 pg (27.0-31.0); MEAN CORPUSCULAR HGB CONC 32.7 g/dL (33.0-37.0); MEAN PLATELET VOLUME 9.6 fL (7.2-11.7); MONO # 0.5 K/uL (0.0-0.8); MONO % 5.7 % (0.0-10.0); NEUT # 6.3 K/uL (1.8-7.0); NEUT % 77.6 % (50.0-75.0); RBC 3.98 Mil/uL (3.80-5.20); RED CELL DISTRIBUTION WIDTH 13.8 % (11.5-14.5); WHITE BLOOD COUNT 8.1 K/uL (4.8-10.8)
[2018-09-07 07:30] LABS: ALB/GLOB RATIO 1.3 (1.0-2.1); ALBUMIN 3.3 g/dL (3.5-5.0); ALT/SGPT 20 U/L (9-52); AST/SGOT 29 U/L (14-36); BLOOD UREA NITROGEN 15 mg/dL (7-17); CALCIUM 8.6 mg/dl (8.6-10.4); GFR NON-AFRICAN AMERICAN > 60
--- NOTE | 2018-09-07 09:07 | CP.PCM.PN ---
Subjective - Date & Time of Evaluation Date of Evaluation: 09/07/18 Time of Evaluation: 18:56 - Subjective Subjective: Patient seen and examined at bedside. No overnight events reported. Patient denies any fever, chills, chest pain, palpitations, abdominal pain, nausea, vomiting, or changes in bowel habits. Patient denies any pain. She denied pain at the time of fracture as well. Objective - Vital Signs/Intake and Output Vital Signs (last 24 hours): Temp Pulse Resp BP Pulse Ox 97.7 F 91 H 18 147/75 95 09/07/18 07:30 09/07/18 07:30 09/07/18 07:30 09/07/18 07:30 09/07/18 07:30 - Medications Medications: Current Medications Acetaminophen (Tylenol 325mg Tab) 650 mg PO Q6 PRN PRN Reason: Pain, moderate (4-7) Heparin Sodium (Porcine) (Heparin) 5,000 units SC Q8 [facility] Last Admin: 09/06/18 20:59 Dose: 5,000 units Sodium Chloride (Sodium Chloride 0.9%) 1,000 mls @ 80 mls/hr IV .[id number] [facility] Last Admin: 09/06/18 18:48 Dose: 80 mls/hr Oxycodone/Acetaminophen (Percocet 5/325 Mg Tab) 1 tab PO Q6 PRN PRN Reason: Pain, severe (8-10) Stop: 09/09/18 18:01 Last Admin: 09/06/18 20:48 Dose: 1 tab - Labs Labs: 09/07/18 06:53 09/07/18 06:53 PT 12.0 SECONDS (9.7-12.2) 09/06/18 14:22 INR 1.1 09/06/18 14:22 APTT 30 SECONDS (21-34) 09/06/18 14:22 - Additional Findings Additional findings: - Constitutional Appears: Non-toxic, No Acute Distress, Cachectic - Head Exam Head Exam: ATRAUMATIC, NORMAL INSPECTION, NORMOCEPHALIC - Eye Exam Eye Exam: EOMI, Normal appearance - ENT Exam ENT Exam: Mucous Membranes Dry, Normal Exam - Neck Exam Neck exam: Positive for: Normal Inspection. Negative for: Lymphadenopathy - Respiratory Exam Respiratory Exam: Decreased Breath Sounds (right), Rales (right), NORMAL BREATHI NG PATTERN - Cardiovascular Exam Cardiovascular Exam: REGULAR RHYTHM, +S1, +S2. absent: Tachycardia - GI/Abdominal Exam GI & Abdominal Exam: Normal Bowel Sounds, Soft. absent: Tenderness - Extremities Exam Extremities exam: Positive for: normal capillary refill, pedal pulses present. Negative for: calf tenderness, normal inspection, pedal edema Additional comments: B/L Multipodous Boots. LLE: No swelling/ecchymosis/erythema, non TTP(light) Left medial malleolus ulcer, well healing, discolored RLE: Medial malleolus ulcer, well healing, crusted over, no active drainage LUE: elbow, eschars on posterior aspect - Neurological Exam Neurological exam: Alert - Psychiatric Exam Psychiatric exam: Normal Affect, Normal Mood - Skin Skin Exam: Dry, Warm Additional comments: Dry on exam Assessment and Plan - Assessment and Plan (Free Text) Assessment: 82 year old female with pmhx of UC, pancreatitis and recent B/L LE ulcers admitted s/p fall. Imaging positive for hip fracture. Plan: Acute Left Hip Fracture Imaging: Left knee xray: negative for acute pathology Hip/Pelvis xray: concern for left hip fracture, recommend CT Left hip CT: Non-displaced intertrochanteric fracture of left hip ECHO: Ordered Twice, Not done, PENDING. -fall precautions -purewick 2/2 immobility -Pain medication PRN, Tylenol-moderate/percocet severe -Cardio consult, Dr. Benz; requesting cardiac clearance -Ortho consult, Dr. Marin to OR for ORIF with interlocking/intram,eduallary kirsten L femur S/P Fall Head CT: Negative for any acute abnormalities. Elbow X-ray negative. CXR: NEGATIVE LE ulcers, chronic -previously treated by Podiatry and ID with Merrem for wounds + for Pseudomonas, staph, enterococcus -Wrapped -SCD contraindication -Podiatry consult, Dr. Mague membreno Elbow X-ray NEGATIVE. UC, chronic, stable -last exacerbation 8+ yrs ago treated w/ meds and dietary modification Ppx VTE: heparin q8 on hold pending head CT GI: not indicated NS @80 Dispo: Pt not cleared for any surgical procedure pending cardiac clearance. Discussed with Dr. Kenneth Barrera, PGY-2
--- NOTE | 2018-09-07 11:22 | CP.PCM.CON ---
History of Present Illness - History of Present Illness History of Present Illness: Podiatry Consult Note for Dr. Bowser 82F with PMH UC, pancreatitis and in house due to left hip fracture seen and examined for b/l lower extremity wounds. Patient states that nursing has been coming to her house regularly to treat the wounds and they have been healing nicely. She denies any pain at this time. Denies any recent erythema, drainage, malodor or other clinical signs of infection. She is AAO x 3 and NAD at time of visit. Denies any recent N/V/F/C/CP/SOB/D Review of Systems - Review of Systems All systems: reviewed and no additional remarkable complaints except Review of Systems: as per HPI Past Patient History - Infectious Disease Hx of Infectious Diseases: None - Past Medical History & Family History Past Medical History?: Yes - Past Social History Smoking Status: Former Smoker - CARDIAC Hx Cardiac Disorders: No - PULMONARY Hx Respiratory Disorders: No - NEUROLOGICAL Hx Neurological Disorder: No - HEENT Hx HEENT Problems: No - ENDOCRINE/METABOLIC Hx Endocrine Disorders: No - HEMATOLOGICAL/ONCOLOGICAL Hx Cancer: Yes - INTEGUMENTARY Hx Dermatological Problems: No - MUSCULOSKELETAL/RHEUMATOLOGICAL Hx Fractures: Yes (rt hip fracture s/p fall; had sx done at ) - GASTROINTESTINAL Hx Crohn's Disease: Yes (ULCERATIVE COLITIS) - GENITOURINARY/GYNECOLOGICAL Hx Genitourinary Disorders: Yes Hx Incontinence: Yes - PSYCHIATRIC Hx Substance Use: No - SURGICAL HISTORY Hx Surgeries: Yes Hx Orthopedic Surgery: Yes (RIGHT HIP) Other/Comment: STOMACH RESECTION - ANESTHESIA Hx Anesthesia: Yes Hx Anesthesia Reactions: No Hx Malignant Hyperthermia: No Meds Allergies/Adverse Reactions: Allergies Allergy/AdvReac Type Severity Reaction Status Date / Time lidocaine Allergy Verified 07/05/18 08:49 - Medications Medications: Current Medications Acetaminophen (Tylenol 325mg Tab) 650 mg PO Q6 PRN PRN Reason: Pain, moderate (4-7) Heparin Sodium (Porcine) (Heparin) 5,000 units SC Q8 [facility] Last Admin: 09/06/18 20:59 Dose: 5,000 units Sodium Chloride (Sodium Chloride 0.9%) 1,000 mls @ 80 mls/hr IV .[id number] [facility] Last Admin: 09/06/18 18:48 Dose: 80 mls/hr Oxycodone/Acetaminophen (Percocet 5/325 Mg Tab) 1 tab PO Q6 PRN PRN Reason: Pain, severe (8-10) Stop: 09/09/18 18:01 Last Admin: 09/06/18 20:48 Dose: 1 tab Physical Exam - Constitutional Appears: Well, Non-toxic, No Acute Distress - Extremities Exam Additional comments: LE focused exam: Vasc: DP/PT pulses faintly palpable to b/l LE. Skin temperature warm to warm from proximal to distal WNL. CFT < 3 seconds to all digits. No edema noted b/l Neuro: Epicritic and protective sensation grossly intact b/l Derm: Multiple small eschars noted to b/l medial ankles with no erythema, renetta georges, drainage, tracking, tunneling, undermining or other signs of infection appreciated MSK: No pain on palpation to any eschars. ROM and MMT no performed due to pain in hip - Neurological Exam Neurological exam: Alert, Oriented x3 - Psychiatric Exam Psychiatric exam: Normal Affect, Normal Mood Results - Vital Signs Recent Vital Signs: Last Vital Signs Temp 97.7 F 09/07/18 07:30 Pulse 91 H 09/07/18 07:30 Resp 18 09/07/18 07:30 BP 147/75 09/07/18 07:30 Pulse Ox 95 09/07/18 07:30 - Labs Result Diagrams: 09/07/18 06:53 09/07/18 06:53 Labs: Laboratory Results - last 24 hr 09/06/18 09/06/18 09/06/18 13:42 13:42 14:22 WBC 9.8 RBC 3.83 Hgb 12.0 Hct 35.8 MCV 93.4 D MCH 31.4 H MCHC 33.6 RDW 13.9 Plt Count 212 MPV 9.9 Neut % (Auto) 76.9 H Lymph % (Auto) 14.6 L Faulk % (Auto) 7.2 Eos % (Auto) 0.8 Baso % (Auto) 0.5 Neut # (Auto) 7.6 H Lymph # (Auto) 1.4 Faulk # (Auto) 0.7 Eos # (Auto) 0.1 Baso # (Auto) 0.0 PT 12.0 INR 1.1 APTT 30 Sodium 134 Potassium 4.2 Chloride 99 Carbon Dioxide 31 H Anion Gap 9 L BUN 14 Creatinine 0.5 L Est GFR ( Amer) > 60 Est GFR (Non-Af Amer) > 60 Random Glucose 107 H D Calcium 8.9 Total Bilirubin 0.8 AST 48 H D ALT 16 Alkaline Phosphatase 157 H D Total Creatine Kinase Total Protein 6.6 Albumin 4.0 Globulin 2.6 Albumin/Globulin Ratio 1.5 Urine Color Urine Clarity Urine pH Ur Specific [place] Urine Protein Urine Glucose (UA) Urine Ketones Urine Blood Urine Nitrate Urine Bilirubin Urine Urobilinogen Ur Leukocyte Esterase Urine WBC (Auto) Urine RBC (Auto) 09/06/18 09/06/18 09/07/18 18:07 20:21 06:53 WBC 8.1 RBC 3.98 Hgb 12.3 Hct 37.7 MCV 94.6 MCH 30.9 MCHC 32.7 L RDW 13.8 Plt Count 193 MPV 9.6 Neut % (Auto) 77.6 H Lymph % (Auto) 14.5 L Faulk % (Auto) 5.7 Eos % (Auto) 1.7 Baso % (Auto) 0.5 Neut # (Auto) 6.3 Lymph # (Auto) 1.2 Faulk # (Auto) 0.5 Eos # (Auto) 0.1 Baso # (Auto) 0.0 PT INR APTT Sodium Potassium Chloride Carbon Dioxide Anion Gap BUN Creatinine Est GFR ( Amer) Est GFR (Non-Af Amer) Random Glucose Calcium Total Bilirubin AST ALT Alkaline Phosphatase Total Creatine Kinase 262 H Total Protein Albumin Globulin Albumin/Globulin Ratio Urine Color Yellow Urine Clarity Clear Urine pH 7.0 Ur Specific [place] 1.009 Urine Protein Negative Urine Glucose (UA) Normal Urine Ketones Trace Urine Blood 1+ H Urine Nitrate Negative Urine Bilirubin Negative Urine Urobilinogen Normal Ur Leukocyte Esterase Neg Urine WBC (Auto) < 1 Urine RBC (Auto) 2 09/07/18 06:53 WBC RBC Hgb Hct MCV MCH MCHC RDW Plt Count MPV Neut % (Auto) Lymph % (Auto) Faulk % (Auto) Eos % (Auto) Baso % (Auto) Neut # (Auto) Lymph # (Auto) Faulk # (Auto) Eos # (Auto) Baso # (Auto) PT INR APTT Sodium 136 Potassium 3.6 Chloride 102 Carbon Dioxide 25 Anion Gap 12 BUN 15 Creatinine 0.6 L Est GFR ( Amer) > 60 Est GFR (Non-Af Amer) > 60 Random Glucose 74 D Calcium 8.6 Total Bilirubin 0.6 AST 29 ALT 20 Alkaline Phosphatase 146 H Total Creatine Kinase Total Protein 5.9 L Albumin 3.3 L Globulin 2.6 Albumin/Globulin Ratio 1.3 Urine Color Urine Clarity Urine pH Ur Specific [place] Urine Protein Urine Glucose (UA) Urine Ketones Urine Blood Urine Nitrate Urine Bilirubin Urine Urobilinogen Ur Leukocyte Esterase Urine WBC (Auto) Urine RBC (Auto) Assessment & Plan - Assessment and Plan (Free Text) Assessment: 82F seen for adequately healing ulcerations sites of b/l lower extremities Plan: Patient seen and evaluated with Dr. Bowser Afebrile, absent leukocytosis No dressing applied at this time No plan for surgical intervention at this time Multipodus boots ordered to be worn at all times while in bed Nursing order placed to applied skin prep to b/l wound sites Podiatry will continue to follow while patient in house - Date & Time Date: 09/07/18 Time: 11:24
--- NOTE | 2018-09-07 12:56 | CP.PCM.CON ---
History of Present Illness - History of Present Illness History of Present Illness: IOD: 82 yo female HPI- 82 yo female, awkae amnd oriented, presents with pain and restricted ROM L sholulder after fall at senior facility in [place] Pt presents to [facility] ER by ambulance Pt with L intertrochanteric hip fx Review of Systems - Hematologic/Lymphatic Additional comments: No LOC Past Patient History - Infectious Disease Hx of Infectious Diseases: None - Past Medical History & Family History Past Medical History?: Yes - Past Social History Smoking Status: Former Smoker - CARDIAC Hx Cardiac Disorders: No - PULMONARY Hx Respiratory Disorders: No - NEUROLOGICAL Hx Neurological Disorder: No - HEENT Hx HEENT Problems: No - ENDOCRINE/METABOLIC Hx Endocrine Disorders: No - HEMATOLOGICAL/ONCOLOGICAL Hx Cancer: Yes - INTEGUMENTARY Hx Dermatological Problems: No - MUSCULOSKELETAL/RHEUMATOLOGICAL Hx Fractures: Yes (rt hip fracture s/p fall; had sx done at ) - GASTROINTESTINAL Hx Crohn's Disease: Yes (ULCERATIVE COLITIS) - GENITOURINARY/GYNECOLOGICAL Hx Genitourinary Disorders: Yes Hx Incontinence: Yes - PSYCHIATRIC Hx Substance Use: No - SURGICAL HISTORY Hx Surgeries: Yes Hx Orthopedic Surgery: Yes (RIGHT HIP) Other/Comment: STOMACH RESECTION - ANESTHESIA Hx Anesthesia: Yes Hx Anesthesia Reactions: No Hx Malignant Hyperthermia: No Meds Allergies/Adverse Reactions: Allergies Allergy/AdvReac Type Severity Reaction Status Date / Time lidocaine Allergy Verified 07/05/18 08:49 - Medications Medications: Current Medications Acetaminophen (Tylenol 325mg Tab) 650 mg PO Q6 PRN PRN Reason: Pain, moderate (4-7) Heparin Sodium (Porcine) (Heparin) 5,000 units SC Q8 [facility] Last Admin: 09/06/18 20:59 Dose: 5,000 units Sodium Chloride (Sodium Chloride 0.9%) 1,000 mls @ 80 mls/hr IV .[id number] [facility] Last Admin: 09/06/18 18:48 Dose: 80 mls/hr Oxycodone/Acetaminophen (Percocet 5/325 Mg Tab) 1 tab PO Q6 PRN PRN Reason: Pain, severe (8-10) Stop: 09/09/18 18:01 Last Admin: 09/06/18 20:48 Dose: 1 tab Physical Exam - Additional Findings Additional findings: Systemic exam HEENt- decreaase visuakl acuity Chest and lungs- clear to A+P abd- beign pt with meomry lapses during encounter 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- 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 Cardiac- S1 S@ nsr no murmurs rubs thrills Results - Vital Signs Recent Vital Signs: Last Vital Signs Temp 97.7 F 09/07/18 07:30 Pulse 91 H 09/07/18 07:30 Resp 18 09/07/18 07:30 BP 147/75 09/07/18 07:30 Pulse Ox 95 09/07/18 07:30 - Labs Result Diagrams: 09/07/18 06:53 09/07/18 06:53 Labs: Laboratory Results - last 24 hr 09/06/18 09/06/18 09/06/18 13:42 13:42 14:22 WBC 9.8 RBC 3.83 Hgb 12.0 Hct 35.8 MCV 93.4 D MCH 31.4 H MCHC 33.6 RDW 13.9 Plt Count 212 MPV 9.9 Neut % (Auto) 76.9 H Lymph % (Auto) 14.6 L [place] % (Auto) 7.2 Eos % (Auto) 0.8 Baso % (Auto) 0.5 Neut # (Auto) 7.6 H Lymph # (Auto) 1.4 [place] # (Auto) 0.7 Eos # (Auto) 0.1 Baso # (Auto) 0.0 PT 12.0 INR 1.1 APTT 30 Sodium 134 Potassium 4.2 Chloride 99 Carbon Dioxide 31 H Anion Gap 9 L BUN 14 Creatinine 0.5 L Est GFR ( Amer) > 60 Est GFR (Non-Af Amer) > 60 Random Glucose 107 H D Calcium 8.9 Total Bilirubin 0.8 AST 48 H D ALT 16 Alkaline Phosphatase 157 H D Total Creatine Kinase Total Protein 6.6 Albumin 4.0 Globulin 2.6 Albumin/Globulin Ratio 1.5 Urine Color Urine Clarity Urine pH Ur Specific [place] Urine Protein Urine Glucose (UA) Urine Ketones Urine Blood Urine Nitrate Urine Bilirubin Urine Urobilinogen Ur Leukocyte Esterase Urine WBC (Auto) Urine RBC (Auto) 09/06/18 09/06/18 09/07/18 18:07 20:21 06:53 WBC 8.1 RBC 3.98 Hgb 12.3 Hct 37.7 MCV 94.6 MCH 30.9 MCHC 32.7 L RDW 13.8 Plt Count 193 MPV 9.6 Neut % (Auto) 77.6 H Lymph % (Auto) 14.5 L [place] % (Auto) 5.7 Eos % (Auto) 1.7 Baso % (Auto) 0.5 Neut # (Auto) 6.3 Lymph # (Auto) 1.2 [place] # (Auto) 0.5 Eos # (Auto) 0.1 Baso # (Auto) 0.0 PT INR APTT Sodium Potassium Chloride Carbon Dioxide Anion Gap BUN Creatinine Est GFR ( Amer) Est GFR (Non-Af Amer) Random Glucose Calcium Total Bilirubin AST ALT Alkaline Phosphatase Total Creatine Kinase 262 H Total Protein Albumin Globulin Albumin/Globulin Ratio Urine Color Yellow Urine Clarity Clear Urine pH 7.0 Ur Specific [place] 1.009 Urine Protein Negative Urine Glucose (UA) Normal Urine Ketones Trace Urine Blood 1+ H Urine Nitrate Negative Urine Bilirubin Negative Urine Urobilinogen Normal Ur Leukocyte Esterase Neg Urine WBC (Auto) < 1 Urine RBC (Auto) 2 09/07/18 06:53 WBC RBC Hgb Hct MCV MCH MCHC RDW Plt Count MPV Neut % (Auto) Lymph % (Auto) [place] % (Auto) Eos % (Auto) Baso % (Auto) Neut # (Auto) Lymph # (Auto) [place] # (Auto) Eos # (Auto) Baso # (Auto) PT INR APTT Sodium 136 Potassium 3.6 Chloride 102 Carbon Dioxide 25 Anion Gap 12 BUN 15 Creatinine 0.6 L Est GFR ( Amer) > 60 Est GFR (Non-Af Amer) > 60 Random Glucose 74 D Calcium 8.6 Total Bilirubin 0.6 AST 29 ALT 20 Alkaline Phosphatase 146 H Total Creatine Kinase Total Protein 5.9 L Albumin 3.3 L Globulin 2.6 Albumin/Globulin Ratio 1.3 Urine Color Urine Clarity Urine pH Ur Specific [place] Urine Protein Urine Glucose (UA) Urine Ketones Urine Blood Urine Nitrate Urine Bilirubin Urine Urobilinogen Ur Leukocyte Esterase Urine WBC (Auto) Urine RBC (Auto) - Impressions Impression: Results Xray- L intertrochanteric femur fx Assessment & Plan - Assessment and Plan (Free Text) Assessment: A- intertrochnateric L femur fx P- to OR for ORIF with interlocking/intram,eduallary kirsten L femur
--- NOTE | 2018-09-07 14:40 | RAD ---
Date of service: 09/06/2018 HISTORY: right rales COMPARISON: Comparison is made with 08/30/2013 TECHNIQUE: 1 view obtained. FINDINGS: LUNGS: Hyperinflation of the lungs is again noted suggestive of emphysema. No evidence of new infiltrate or consolidation in the lungs. PLEURA: No significant pleural effusion identified, no pneumothorax apparent. CARDIOVASCULAR: No aortic atherosclerotic calcification present. Normal cardiac size. No pulmonary vascular congestion. OSSEOUS STRUCTURES: No significant abnormalities. VISUALIZED UPPER ABDOMEN: Normal. OTHER FINDINGS: None. IMPRESSION: No active disease.
--- NOTE | 2018-09-07 14:42 | RAD ---
Date of service: 09/06/2018 PROCEDURE: Radiographs of the left elbow. HISTORY: eschars COMPARISON: No prior. TECHNIQUE: 3 views obtained. FINDINGS: BONES: Diffuse osteopenia. No evidence of acute fracture or destructive bony lesion. JOINTS: Mild osteoarthritic changes. SOFT TISSUES: Suspicious for skin and subcutaneous defect at the posterior aspect of the left elbow. No evidence of soft tissue pneumatosis. JOINT EFFUSION: None. OTHER FINDINGS: None IMPRESSION: No evidence of acute fracture or dislocation.
--- NOTE | 2018-09-08 01:58 | CON ---
DATE: 09/07/2018 CARDIOLOGY CONSULTATION REASON FOR CONSULTATION: A fall. HISTORY OF PRESENT ILLNESS: The patient is an 83-year-old female who lives by herself, sustained a fall early this morning. She went to use the bathroom at 2 a.m. and she experienced unexplained fall. The patient denies feeling dizzy or losing consciousness or tripping by anything. The patient remained on the floor from 2 a.m. until 7 a.m. The patient was able to drag herself to the nearest phone where she called for help. The patient denies any similar episode of fall at home. However, she stated a few years ago she fell in the office of Dr. Bowser, but she fainted at that time. The patient denies any cardiac history in the past such as history of coronary artery disease and is not aware of any history of stroke in the past. SOCIAL HISTORY: Nonsmoker, nondrinker. She lives by herself. She has two children who live in [place] and [place]. MEDICATIONS: Heparin 5000 units subcutaneously every 8 hours, Percocet 1 tablet every 6 hours. PHYSICAL EXAMINATION: GENERAL: The patient is an elderly female who does not appear to be in acute distress. VITAL SIGNS: Blood pressure 147/75, heart rate 91, temperature 97.7, respirations 18. HEENT: Normocephalic. NECK: No JVD. HEART: S1 and S2, regular. ABDOMEN: Soft. EXTREMITIES: No edema. LABORATORY DATA: Today's hemoglobin and hematocrit are 12.3 and 37.7. White count and platelet count are within normal limits. The SMA-7 is within normal limits except for a creatinine of 0.6. PT, PTT,and INR are within normal limits. Head CT scan without contrast, no evidence of acute intracranial hemorrhage, mass, or midline shift. Volume loss and chronic microvascular white matter ischemic changes. Pelvic CT scan revealed a nondisplaced left intratrochanteric fracture. Knee x-ray showed no acute fracture or destructive bony lesion. [id number] osteoarthritis. EKG is un-accessible on the [employer] database and I will pursue the paper version of it. ASSESSMENT: 1. Status post fall and the patient sustained left nondisplaced intratrochanteric fracture. 2. Slightly elevated alkaline phosphatase level. RECOMMENDATIONS: 1. Continue current telemetry monitoring. Obtain an echocardiographic study. 2. Continue subcutaneous Heparin at 5000 units every 8 hours. Mesfin Benz MD
[2018-09-08] MEDS: Sodium Chloride 0.9% 1,000 ML IV SCH ×2 (03:50→20:23)
[2018-09-08 07:50] LABS: BASO % 0.6 % (0.0-2.0); EOS # 0.5 K/uL (0.0-0.7); EOS % 6.6 % (0.0-4.0); HEMOGLOBIN 11.4 g/dL (11.0-16.0); LYMPH # 1.4 K/uL (1.0-4.3); MEAN CELL VOLUME 94.2 fL (81.0-99.0); MEAN CORPUSCULAR HEMOGLOBIN 31.6 pg (27.0-31.0); MEAN CORPUSCULAR HGB CONC 33.5 g/dL (33.0-37.0); MEAN PLATELET VOLUME 9.7 fL (7.2-11.7); MONO # 0.6 K/uL (0.0-0.8); MONO % 7.6 % (0.0-10.0); NEUT # 5.2 K/uL (1.8-7.0); NEUT % 67.2 % (50.0-75.0); NRBC % 0.1 % (0.0-2.0); RBC 3.62 Mil/uL (3.80-5.20); RED CELL DISTRIBUTION WIDTH 13.5 % (11.5-14.5); WHITE BLOOD COUNT 7.8 K/uL (4.8-10.8)
[2018-09-08 08:04] LABS: ALB/GLOB RATIO 1.2 (1.0-2.1); ALT/SGPT 12 U/L (9-52); AST/SGOT 26 U/L (14-36); BLOOD UREA NITROGEN 15 mg/dL (7-17); CALCIUM 8.1 mg/dl (8.6-10.4); GFR NON-AFRICAN AMERICAN > 60
--- NOTE | 2018-09-08 08:13 | CP.PCM.PCO ---
Physician Communication Note - Physician Communication Note Physician Communication Note: Please see above.
[2018-09-08] MEDS ORDERED: Potassium Chloride 20 mEq ER Tab PO ONE (09:31)
--- NOTE | 2018-09-08 11:07 | CARD ---
APPROVED REPORT Date of service: 09/08/2018 EXAM: Two-dimensional and M-mode echocardiogram with Doppler and color Doppler. Other Information Quality : [employer] : INDICATION Pre-Op Syncope 2D DIMENSIONS IVSd0.6 (0.7-1.1cm)LVDd3.9 (3.9-5.9cm) PWd0.7 (0.7-1.1cm)LA Jjvzzo85 (18-58mL) LVDs2.8 (2.5-4.0cm)FS (%) 29.9 % LVEF (%)56.0 (>50%)LVEF (Nayak's)58.10 % IVC0.00 cm M-Mode DIMENSIONS Left Atrium (MM)3.50 (2.5-4.0cm)Aortic Root3.07 (2.2-3.7cm) Aortic Cusp Exc.1.76 (1.5-2.0cm)TAPSE15.18 cm Mitral Valve MV E Jvhqqvmd938.1cm/sMV A Qpnipqub87.0cm/sE/A ratio1.1 UVQO295.50 cm/s TDI Lateral E' Peak V9.45cm/sMedial E' Peak V8.22cm/sE/Lateral E'10.9 E/Medial E'12.5 Tricuspid Valve TR Peak Sickinxv749vt/sTR Peak Gr.[id number] LEFT VENTRICLE The left ventricle is normal size. There is normal left ventricular wall thickness. The left ventricular function is normal. The left ventricular ejection fraction is within the normal range. There is normal LV segmental wall motion. Transmitral Doppler flow pattern is Grade II-pseudonormal filling dynamics. RIGHT VENTRICLE The right ventricle is normal size. There is normal right ventricular wall thickness. The right ventricular systolic function is normal. ATRIA The left atrium size is normal. The right atrium size is normal. AORTIC VALVE The aortic valve is moderately thickened. No aortic regurgitation is present. There is no aortic valvular stenosis. MITRAL VALVE The mitral valve is moderately thickened. There is no mitral valve stenosis. Mitral regurgitation is mild. TRICUSPID VALVE There is moderate tricuspid regurgitation. PULMONIC VALVE The pulmonary valve is normal in structure. There is no pulmonic valvular regurgitation. GREAT VESSELS The aortic root is normal in size. The IVC is normal in size and collapses >50% with inspiration. <Conclusion> There is normal left ventricular wall thickness. The left ventricular function is normal. The left ventricular ejection fraction is within the normal range. There is normal LV segmental wall motion. Transmitral Doppler flow pattern is Grade II-pseudonormal filling dynamics. Mitral regurgitation is mild. There is moderate tricuspid regurgitation.
--- NOTE | 2018-09-08 11:11 | CP.PCM.PCO ---
Physician Communication Note - Physician Communication Note Physician Communication Note: OK with ORIF Cardiacwize
--- NOTE | 2018-09-08 12:01 | CP.PCM.PN ---
<Leila Barrera - Last Filed: 09/08/18 11:56> Subjective - Date & Time of Evaluation Date of Evaluation: 09/08/18 Time of Evaluation: 11:56 - Subjective Subjective: Patient seen and examined at bedside. She offers no complaints. She denies any fever, chill, chest pain, SOB, abdominal pain, nausea, vomiting, changes in bowel habits, or urinary symptoms. She denies any hip pain. Objective - Vital Signs/Intake and Output Vital Signs (last 24 hours): Temp Pulse Resp BP Pulse Ox 97.6 F 83 18 112/51 L 96 09/08/18 07:00 09/08/18 07:00 09/08/18 07:00 09/08/18 07:00 09/08/18 07:00 Intake and Output: 09/08/18 09/08/18 06:59 18:59 Intake Total 940 Output Total 800 Balance 140 - Medications Medications: Current Medications Acetaminophen (Tylenol 325mg Tab) 650 mg PO Q6 PRN PRN Reason: Pain, moderate (4-7) Last Admin: 09/08/18 10:29 Dose: 650 mg Heparin Sodium (Porcine) (Heparin) 5,000 units SC Q8 [facility] Last Admin: 09/08/18 06:18 Dose: 5,000 units Sodium Chloride (Sodium Chloride 0.9%) 1,000 mls @ 80 mls/hr IV .[id number] [facility] Last Admin: 09/08/18 03:50 Dose: 80 mls/hr Oxycodone/Acetaminophen (Percocet 5/325 Mg Tab) 1 tab PO Q6 PRN PRN Reason: Pain, severe (8-10) Stop: 09/09/18 18:01 Last Admin: 09/06/18 20:48 Dose: 1 tab - Labs Labs: 09/08/18 07:35 09/08/18 07:35 PT 12.0 SECONDS (9.7-12.2) 09/06/18 14:22 INR 1.1 09/06/18 14:22 APTT 30 SECONDS (21-34) 09/06/18 14:22 - Additional Findings Additional findings: - Constitutional Appears: Non-toxic, No Acute Distress, Cachectic - Head Exam Head Exam: ATRAUMATIC, NORMAL INSPECTION, NORMOCEPHALIC - Eye Exam Eye Exam: EOMI, Normal appearance - ENT Exam ENT Exam: Mucous Membranes Dry, Normal Exam - Neck Exam Neck exam: Positive for: Normal Inspection. Negative for: Lymphadenopathy - Respiratory Exam Respiratory Exam: Decreased Breath Sounds (right), Rales (right), NORMAL BREAT NAEEM PATTERN - Cardiovascular Exam Cardiovascular Exam: REGULAR RHYTHM, +S1, +S2. absent: Tachycardia - GI/Abdominal Exam GI & Abdominal Exam: Normal Bowel Sounds, Soft. absent: Tenderness - Extremities Exam Extremities exam: Positive for: normal capillary refill, pedal pulses present. Negative for: calf tenderness, normal inspection, pedal edema Additional comments: B/L Multipodous Boots. LLE: No swelling/ecchymosis/erythema, non TTP(light) Left medial malleolus ulcer, well healing, discolored RLE: Medial malleolus ulcer, well healing, crusted over, no active drainage LUE: elbow, eschars on posterior aspect - Neurological Exam Neurological exam: Alert - Psychiatric Exam Psychiatric exam: Normal Affect, Normal Mood - Skin Skin Exam: Dry, Warm Additional comments: Dry on exam Assessment and Plan - Assessment and Plan (Free Text) Assessment: 82 year old female with pmhx of UC, pancreatitis and recent B/L LE ulcers admitted s/p fall. Imaging positive for hip fracture. Plan: Acute Left Hip Fracture Left knee xray: negative for acute pathology Hip/Pelvis xray: concern for left hip fracture, recommend CT Left hip CT: Non-displaced intertrochanteric fracture of left hip ECHO: PENDING OFficial Read. -fall precautions -purewick 2/2 immobility -Pain medication PRN, Tylenol-moderate/percocet severe -Cardio consult, Dr. Benz; requesting cardiac clearance -Ortho consult, Dr. Marin to OR for ORIF with interlocking/intram,eduallary kirsten L femur S/P Fall Head CT: Negative for any acute abnormalities. Elbow X-ray: negative. CXR: NEGATIVE LE ulcers, chronic -previously treated by Podiatry and ID with Merrem for wounds + for Pseudomonas, staph, enterococcus -Wrapped -SCD contraindication -Podiatry consult, Dr. Mague membreno Elbow X-ray: negative. UC, chronic, stable -last exacerbation 8+ yrs ago treated w/ meds and dietary modification Ppx VTE: heparin q8 on hold pending head CT GI: not indicated NS @80 Dispo: Per Cardio, patient cleared for ORIF. Discussed with Dr. Kenneth Barrera, PGY-2 <Cj Cooper - Last Filed: 09/08/18 20:03> Objective - Vital Signs/Intake and Output Vital Signs (last 24 hours): Temp Pulse Resp BP Pulse Ox 97.6 F 80 20 113/65 95 09/08/18 16:17 09/08/18 16:17 09/08/18 16:17 09/08/18 16:17 09/08/18 16:17 - Medications Medications: Current Medications Acetaminophen (Tylenol 325mg Tab) 650 mg PO Q6 PRN PRN Reason: Pain, moderate (4-7) Last Admin: 09/08/18 10:29 Dose: 650 mg Heparin Sodium (Porcine) (Heparin) 5,000 units SC Q8 [facility] Last Admin: 09/08/18 06:18 Dose: 5,000 units Sodium Chloride (Sodium Chloride 0.9%) 1,000 mls @ 80 mls/hr IV .[id number] [facility] Last Admin: 09/08/18 03:50 Dose: 80 mls/hr Oxycodone/Acetaminophen (Percocet 5/325 Mg Tab) 1 tab PO Q6 PRN PRN Reason: Pain, severe (8-10) Stop: 09/09/18 18:01 Last Admin: 09/06/18 20:48 Dose: 1 tab - Labs Labs: 09/08/18 07:35 09/08/18 07:35 PT 12.0 SECONDS (9.7-12.2) 09/06/18 14:22 INR 1.1 09/06/18 14:22 APTT 30 SECONDS (21-34) 09/06/18 14:22 Attending/Attestation - Attestation I have personally seen and examined this patient.: Yes I have fully participated in the care of the patient.: Yes I have reviewed all pertinent clinical information, including history, physical exam and plan: Yes Notes (Text): 09/08/18 20:02 Patient was seen and examined at 1:00 PM 09/08/18 Care of this patient was gone over with resident Dr. Dee. Spoke with [employer] Dr. Benz who has reviewed Echocardiogram and she has been cleared from the Cardiology perspective for surgery on 09/09/18. Cj Cooper D.O.
--- NOTE | 2018-09-08 12:50 | CP.PCM.PCO ---
Physician Communication Note - Physician Communication Note Physician Communication Note: Patient is medicaly optimized for surgery planned for 09/09/18
--- NOTE | 2018-09-08 19:50 | PN ---
DATE: 09/08/2018 SUBJECTIVE: The patient denies any chest pain or shortness of breath. PHYSICAL EXAMINATION: VITAL SIGNS: Blood pressure 112/51, heart rate 80, temperature 97.9, respirations 18. HEENT: Normocephalic. CHEST: Clear. HEART: S1 and S2 regular. EXTREMITIES: No edema. LABORATORY DATA: Today's SMA-7: Sodium 134, potassium 3.5, chloride 105, CO2 of 25, glucose 110, BUN 15, creatinine 0.6. The patient's hemoglobin, hematocrit, white count, and platelet count are within normal limits. Echocardiographic study performed today revealed normal left ventricular systolic function with grade 2 pseudonormal filling dynamics, mild mitral insufficiency with moderate tricuspid insufficiency. Normal ejection fraction. ASSESSMENT: 1. Status post fall with left intertrochanteric fracture. 2. Mild hypokalemia. 3. Mild mitral insufficiency and moderate tricuspid insufficiency. RECOMMENDATIONS: Continue current subcutaneous heparin 5000 units every 8 hours and normal saline 80 mL an hour. The patient received potassium replacement of 20 mEq orally today. Case was discussed with Dr. Cooper, the hospitalist. The patient can go for open reduction and internal fixation of her fracture from the cardiac point of view with postoperative telemetry for ICU monitoring. Close perioperative blood pressure monitoring is recommended. Mesfin Benz MD
[2018-09-08] MEDS ORDERED: Dextrose 50% SYRINGE Inj (50 ml) IVP PRN (23:05)
[2018-09-08] MEDS ORDERED: Glucagon Recombinant 1 mg Inj IM PRN (23:05)
[2018-09-09 07:32] LABS: BASO % 0.6 % (0.0-2.0); EOS # 0.6 K/uL (0.0-0.7); EOS % 8.3 % (0.0-4.0); HEMOGLOBIN 11.8 g/dL (11.0-16.0); LYMPH # 1.5 K/uL (1.0-4.3); MEAN CELL VOLUME 95.2 fL (81.0-99.0); MEAN CORPUSCULAR HEMOGLOBIN 31.7 pg (27.0-31.0); MEAN CORPUSCULAR HGB CONC 33.3 g/dL (33.0-37.0); MEAN PLATELET VOLUME 9.8 fL (7.2-11.7); MONO # 0.5 K/uL (0.0-0.8); MONO % 7.9 % (0.0-10.0); NEUT # 4.1 K/uL (1.8-7.0); NEUT % 61.2 % (50.0-75.0); RBC 3.72 Mil/uL (3.80-5.20); RED CELL DISTRIBUTION WIDTH 13.7 % (11.5-14.5); WHITE BLOOD COUNT 6.7 K/uL (4.8-10.8)
[2018-09-09 07:43] LABS: PROTHROMBIN TIME 11.2 SECONDS (9.7-12.2)
[2018-09-09 07:46] LABS: ALB/GLOB RATIO 1.3 (1.0-2.1); ALT/SGPT 9 U/L (9-52); AST/SGOT 19 U/L (14-36); BLOOD UREA NITROGEN 13 mg/dL (7-17); CALCIUM 8.4 mg/dl (8.6-10.4); GFR NON-AFRICAN AMERICAN > 60
[2018-09-09] MEDS: Sodium Chloride 0.9% 1,000 ML IV SCH ×2 (11:52→20:04)
--- NOTE | 2018-09-09 13:33 | CP.PCM.PN ---
<Sunday Baker - Last Filed: 09/09/18 13:38> Subjective - Date & Time of Evaluation Date of Evaluation: 09/09/18 Time of Evaluation: 13:31 - Subjective Subjective: HOSPITALIST SERVICE Pt s/e at bedside. Reports no new symptoms overnight, agrees to plan for surgery. Pt denies CP SOB FC NV, agreeable with plan at this time. Objective - Vital Signs/Intake and Output Vital Signs (last 24 hours): Temp Pulse Resp BP Pulse Ox 98.2 F 81 20 151/77 H 98 09/09/18 07:00 09/09/18 07:00 09/09/18 07:00 09/09/18 07:00 09/09/18 07:00 Intake and Output: 09/09/18 09/09/18 06:59 18:59 Intake Total 790 Output Total 250 Balance 540 - Medications Medications: Current Medications Acetaminophen (Tylenol 325mg Tab) 650 mg PO Q6 PRN PRN Reason: Pain, moderate (4-7) Last Admin: 09/08/18 10:29 Dose: 650 mg Dextrose (Dextrose 50% Inj) 0 ml IVP .STAT PRN; Protocol PRN Reason: Hypoglycemia Protocol Dextrose (Glutose 15) 0 gm PO .ONCE PRN; Protocol PRN Reason: Hypoglycemia Protocol Glucagon (Glucagen Diagnostic Kit) 0 mg IM .STAT PRN; Protocol PRN Reason: Hypoglycemia Protocol Heparin Sodium (Porcine) (Heparin) 5,000 units SC Q8 [facility] Last Admin: 09/08/18 21:42 Dose: Not Given Sodium Chloride (Sodium Chloride 0.9%) 1,000 mls @ 80 mls/hr IV .[id number] [facility] Last Admin: 09/09/18 11:52 Dose: 80 mls/hr Dextrose (Dextrose 5% In Water 1000 Ml) 1,000 mls @ 0 mls/hr IV .Q0M PRN; Protocol PRN Reason: Hypoglycemia Protocol Oxycodone/Acetaminophen (Percocet 5/325 Mg Tab) 1 tab PO Q6 PRN PRN Reason: Pain, severe (8-10) Stop: 09/09/18 18:01 Last Admin: 09/06/18 20:48 Dose: 1 tab - Labs Labs: 09/09/18 07:14 09/09/18 07:14 PT 11.2 SECONDS (9.7-12.2) 09/09/18 07:14 INR 1.0 09/09/18 07:14 APTT 30 SECONDS (21-34) 09/06/18 14:22 - Additional Findings Additional findings: - Constitutional Appears: Non-toxic, No Acute Distress, Cachectic - Head Exam Head Exam: ATRAUMATIC, NORMAL INSPECTION, NORMOCEPHALIC - Eye Exam Eye Exam: EOMI, Normal appearance - ENT Exam ENT Exam: Mucous Membranes Dry, Normal Exam - Neck Exam Neck exam: Positive for: Normal Inspection. Negative for: Lymphadenopathy - Respiratory Exam Respiratory Exam: Decreased Breath Sounds (right), Rales (right), NORMAL BREATHING PATTERN - Cardiovascular Exam Cardiovascular Exam: REGULAR RHYTHM, +S1, +S2. absent: Tachycardia - GI/Abdominal Exam GI & Abdominal Exam: Normal Bowel Sounds, Soft. absent: Tenderness - Extremities Exam Extremities exam: Positive for: normal capillary refill, pedal pulses present. Negative for: calf tenderness, normal inspection, pedal edema Additional comments: B/L Multipodous Boots. LLE: No swelling/ecchymosis/erythema, non TTP(light) Left medial malleolus ulcer, well healing, discolored RLE: Medial malleolus ulcer, well healing, crusted over, no active drainage LUE: elbow, eschars on posterior aspect - Neurological Exam Neurological exam: Alert - Psychiatric Exam Psychiatric exam: Normal Affect, Normal Mood - Skin Skin Exam: Dry, Warm Additional comments: Dry on exam Assessment and Plan - Assessment and Plan (Free Text) Assessment: 82 year old female with pmhx of UC, pancreatitis and recent B/L LE ulcers admitted s/p fall. Imaging positive for hip fracture. Plan: Acute Left Hip Fracture Left knee xray: negative for acute pathology Hip/Pelvis xray: concern for left hip fracture, recommend CT Left hip CT: Non-displaced intertrochanteric fracture of left hip ECHO: PENDING OFficial Read. -fall precautions -farmer cath -Pain medication PRN, Tylenol-moderate/percocet severe -Cardio consult, Dr. Benz; per cardio- cleared for ORIF -Ortho consult, Dr. Marin to OR for ORIF with interlocking/intram,eduallary kirsten L femur today @ 230pm S/P Fall Head CT: Negative for any acute abnormalities. Elbow X-ray: negative. CXR: NEGATIVE LE ulcers, chronic -previously treated by Podiatry and ID with Merrem for wounds + for Pseudomonas, staph, enterococcus -Wrapped -SCD contraindication -Podiatry consult, Dr. Mague membreno Elbow X-ray: negative. UC, chronic, stable -last exacerbation 8+ yrs ago treated w/ meds and dietary modification Ppx VTE: heparin held GI: NPO NS @80 Dispo: pending post op recs, f/u rehab placement, as per ortho- pt may go to rehab of her choice [facility] PGY1 <Anjali Jett V - Last Filed: 09/09/18 18:07> Objective - Vital Signs/Intake and Output Vital Signs (last 24 hours): Temp Pulse Resp BP Pulse Ox 98.2 F 81 20 151/77 H 98 09/09/18 07:00 09/09/18 07:00 09/09/18 07:00 09/09/18 07:00 09/09/18 07:00 Intake and Output: 09/09/18 09/09/18 06:59 18:59 Intake Total 790 1000 Output Total 250 Balance 540 1000 - Medications Medications: Current Medications Acetaminophen (Tylenol 325mg Tab) 650 mg PO Q6 PRN PRN Reason: Pain, moderate (4-7) Last Admin: 09/08/18 10:29 Dose: 650 mg Dextrose (Dextrose 50% Inj) 0 ml IVP .STAT PRN; Protocol PRN Reason: Hypoglycemia Protocol Dextrose (Glutose 15) 0 gm PO .ONCE PRN; Protocol PRN Reason: Hypoglycemia Protocol Docusate Sodium (Colace) 100 mg PO BID [facility] Enoxaparin Sodium (Lovenox) 40 mg SC DAILY [facility] Glucagon (Glucagen Diagnostic Kit) 0 mg IM .STAT PRN; Protocol PRN Reason: Hypoglycemia Protocol Sodium Chloride (Sodium Chloride 0.9%) 1,000 mls @ 80 mls/hr IV .[id number] [facility] Last Admin: 09/09/18 11:52 Dose: 80 mls/hr Dextrose (Dextrose 5% In Water 1000 Ml) 1,000 mls @ 0 mls/hr IV .Q0M PRN; Protocol PRN Reason: Hypoglycemia Protocol Lactated Ringer's (Lactated Ringer's) 1,000 mls @ 70 mls/hr IV .[id number] [facility] Cefazolin Sodium/Dextrose (Ancef Iv 1 Gm Duplex) 1 gm in 50 mls @ 100 mls/hr IVPB Q8H [facility]; Protocol Stop: 09/10/18 02:29 Morphine Sulfate (Morphine) 1 mg IVP Q10M PRN PRN Reason: Pain, moderate (4-7) Stop: 09/09/18 19:40 Morphine Sulfate (Morphine) 2 mg IVP Q4H PRN PRN Reason: Pain, severe (8-10) Ondansetron HCl (Zofran Inj) 4 mg IVP ONCE PRN PRN Reason: Nausea/Vomiting Oxycodone/Acetaminophen (Percocet 5/325 Mg Tab) 2 tab PO Q4H PRN PRN Reason: Pain, moderate (4-7) Stop: 09/12/18 17:41 Oxycodone/Acetaminophen (Percocet 5/325 Mg Tab) 1 tab PO Q4 PRN PRN Reason: Pain, Mild (1-3) Stop: 09/12/18 20:01 - Labs Labs: 09/09/18 07:14 09/09/18 07:14 PT 11.2 SECONDS (9.7-12.2) 09/09/18 07:14 INR 1.0 09/09/18 07:14 APTT 30 SECONDS (21-34) 09/06/18 14:22 Attending/Attestation - Attestation I have personally seen and examined this patient.: Yes I have fully participated in the care of the patient.: Yes I have reviewed all pertinent clinical information, including history, physical exam and plan: Yes Notes (Text): This is an 82-year-old female with past medical history of ulcerative colitis, nonhealing bilateral leg ulcers and a prior history of pancreatitis who comes in for admission for an acute left hip fracture. Patient is n.p.o. for procedure today. Patient patient is optimize cardiac status prior to surgery. Patient is very sweet elderly lady in no acute distress she is awake and alert for mild left hip pain when she moves her foot. Patient is scheduled for her at 230 today orthopedic. Orthopedic and anesthesia to describe risks and benefits of procedure prior to the OR. Anticoagulation to be restarted per orthopedic. Pain management per orthopedic. Please note patient is requesting to when she is stable for discharge for rehab preference on [address] Assessment/plan 1. Acute Left Hip Fracture * Orthopedic on case scheduled for OR today at 230 * Preop/intraoperative/postop management per orthopedic * Cardiology on board help appreciated * imaging: * Left knee xray: negative for acute pathology * Hip/Pelvis xray: concern for left hip fracture, recommend CT * Left hip CT: Non-displaced intertrochanteric fracture of left hip * ECHO: normal left ventricular wall thickness, left ventricular function is normal, left ventricular ejection fraction is within normal range, normal LV segmental wall motion, mod tricupsid regurgitation. * Anticoagulation per ortho * pain management per ortho * Farmer requested by ortho * PT/OT * ANGELA evaluation 2. Prophylactic measure Ppx * anticoagulation held prior to OR * NPO for orth Disposition: patient is medically optimized prior to OR. Surgery and anesthesia to discuss risk and benefits prior to procedure respectively. Postoperative management per ortho.
--- NOTE | 2018-09-09 14:27 | CARD ---
APPROVED REPORT Date of service: 09/06/2018 EKG Measurement Heart [id number] <Conclusion> Sinus rhythm with premature atrial complexes Minimal voltage criteria for LVH, may be normal variant Prolonged QT Abnormal ECG
--- NOTE | 2018-09-09 14:35 | CARD ---
APPROVED REPORT Date of service: 09/06/2018 EKG Measurement Heart [id number] FL [id number] <Conclusion> Suspect arm lead reversal, interpretation assumes no reversal Normal sinus rhythm Minimal voltage criteria for LVH, may be normal variant Lateral infarct, age undetermined Abnormal ECG
[2018-09-09] MEDS ORDERED: Morphine 1 mg/ml preservative-free Inj(Duramorph) ONE (15:22)
[2018-09-09] MEDS ORDERED: Propofol 10 mg/ml Inj (20 ML) ONE (15:36)
[2018-09-09] MEDS ORDERED: Midazolam 2 MG/2 ML VIAL ONE (15:36)
[2018-09-09] MEDS ORDERED: ceFAZolin 1 gm in NS 2 GM/200 ML BAG IVPB ONE (15:41)
[2018-09-09] MEDS ORDERED: Rocuronium 10 mg/ml (5 ml) ONE (15:41)
[2018-09-09] MEDS ORDERED: EPINEPHrine 1 mg/ml (1:1000) Inj ONE (15:41)
[2018-09-09] MEDS ORDERED: Sodium Chloride 0.9% 0 ML IV ONE (15:41)
[2018-09-09] MEDS ORDERED: Thrombin Topical 20,000 Intl Units Spray Kit TOP ONE (15:45)
[2018-09-09] MEDS ORDERED: Thrombin Topical 5,000 Int Units Spray Kit ONE (15:45)
[2018-09-09] MEDS ORDERED: Bacitracin 150,000 UNIT in Sodium Chloride 0.9% Irrig 3,000 ML IR SCH (15:45)
[2018-09-09] MEDS ORDERED: Absorbable Gelatin Sponge Size 100 ONE (15:48)
[2018-09-09] MEDS ORDERED: Bacitracin Ointment 30 GM TUBE ONE (16:59)
[2018-09-09] MEDS ORDERED: Neostigmine 1:1000 (1 mg/ml) Inj ONE (17:01)
[2018-09-09] MEDS ORDERED: ePHEDrine 50 mg/ml Inj ONE (17:01)
[2018-09-09] MEDS ORDERED: Phenylephrine 10 mg/ml Inj ONE (17:01)
[2018-09-09] MEDS ORDERED: Oxycodone/Acetaminophen 5/325 mg Tab PO PRN ×2 (17:40→17:44)
[2018-09-09] MEDS ORDERED: Lactated Ringer's 1,000 ML IV SCH (17:45)
--- NOTE | 2018-09-09 17:48 | PCM.SURG1 ---
Surgeon's Initial Post Op Note - Surgeon's Notes Surgeon: Jhonatan Marin MD [employer]: Cristhian David PA-C, Chanel LIANG Type of Anesthesia: General Endo Anesthesia Administered By: Иван HASSAN Pre-Operative Diagnosis: Left hip intertrochanteric fracture Operative Findings: see complete operative report Post-Operative Diagnosis: Left hip intertrochanteric fracture Operation Performed: 1. Left hip intertrochanteric fracture open reduction internal fixation with short intermedullary nail 2. Postitioning of flouroscopy and interpretation of video imaging. Specimen/Specimens Removed: none Estimated Blood Loss: EBL {In ML}: 20 Blood Products Given: N/A Drains Used: No Drains Post-Op Condition: Good Date of Surgery/Procedure: 09/09/18 Time of Surgery/Procedure: 15:40 (Incision- 16:45)
--- NOTE | 2018-09-09 18:21 | RAD ---
PROCEDURE: Left Hip X-ray Radiographs. HISTORY: s/p L hip ORIF COMPARISON: Preoperative study 09/06/2018 left hip TECHNIQUE: 2 views obtained. FINDINGS: BONES: Satisfactory position alignment of orthopedic hardware proximal left femur. JOINTS: Normal. SOFT TISSUES: Normal. OTHER FINDINGS: None. IMPRESSION: Satisfactory postoperative status.
--- NOTE | 2018-09-09 19:15 | PN ---
DATE: 09/09/2018 SUBJECTIVE: The patient denies any chest pain or shortness of breath. She is awaiting to go for surgery today. PHYSICAL EXAMINATION: VITAL SIGNS: Blood pressure 151/77, heart rate 81, temperature 98.2, respirations 20. HEENT: Normocephalic. CHEST: Clear. HEART: S1, S2 regular. EXTREMITIES: No edema. LABORATORY DATA: Today's hemoglobin, hematocrit, white count and platelet count are within normal limits. Today's SMA-7: Sodium 137, potassium 3.7, chloride 106, CO2 of 28, glucose 112, BUN 15, creatinine 0.5. ASSESSMENT: 1. Status post fall and left intertrochanteric fracture. 2. Improved hypokalemia. 3. Mild mitral insufficiency and moderate tricuspid insufficiency on the recent echocardiographic study. RECOMMENDATIONS: Currently, subcutaneous heparin is on hold. Continue normal saline at 80 mL an hour. The patient can undergo open reduction and internal fixation of her hip fracture from a cardiac point of view with postoperative telemetry/ICU monitoring. Mesfin Benz MD
[2018-09-09] MEDS: ceFAZolin IV 1 gm in Dextrose 1 GM/50 ML BAG IVPB SCH (20:04)
[2018-09-10] MEDS: ceFAZolin IV 1 gm in Dextrose 1 GM/50 ML BAG IVPB SCH (02:05)
[2018-09-10 07:20] LABS: BASO % 0.4 % (0.0-2.0); EOS % 0.3 % (0.0-4.0); HEMOGLOBIN 10.5 g/dL (11.0-16.0); LYMPH # 1.1 K/uL (1.0-4.3); LYMPH % 10.4 % (20.0-40.0); MEAN CELL VOLUME 93.8 fL (81.0-99.0); MEAN CORPUSCULAR HGB CONC 34.1 g/dL (33.0-37.0); MEAN PLATELET VOLUME 9.7 fL (7.2-11.7); MONO # 0.5 K/uL (0.0-0.8); MONO % 4.9 % (0.0-10.0); RBC 3.29 Mil/uL (3.80-5.20); RED CELL DISTRIBUTION WIDTH 13.6 % (11.5-14.5)
[2018-09-10 07:22] LABS: WHITE BLOOD COUNT 10.6 K/uL (4.8-10.8)
[2018-09-10 07:49] LABS: ALB/GLOB RATIO 1.2 (1.0-2.1); ALBUMIN 2.9 g/dL (3.5-5.0); ALT/SGPT 25 U/L (9-52); AST/SGOT 48 U/L (14-36); BLOOD UREA NITROGEN 11 mg/dL (7-17); CALCIUM 8.5 mg/dl (8.6-10.4); GFR NON-AFRICAN AMERICAN > 60
[2018-09-10] MEDS: Sodium Chloride 0.9% 1,000 ML IV SCH ×2 (09:43→22:12)
--- NOTE | 2018-09-10 09:45 | CP.PCM.PN ---
Subjective - Date & Time of Evaluation Date of Evaluation: 09/10/18 Time of Evaluation: 09:00 - Subjective Subjective: Patient seen and examined OOB to chair comfortable. Pain is well controlled. No acute events overnight. Transferred from bed to chair with max assist this AM. Denies CP/SOB/fever/dizziness. Objective - Vital Signs/Intake and Output Vital Signs (last 24 hours): Temp Pulse Resp BP Pulse Ox 98.2 F 90 20 113/66 94 L 09/10/18 07:00 09/10/18 07:00 09/10/18 07:00 09/10/18 07:00 09/10/18 07:00 Intake and Output: 09/10/18 09/10/18 06:59 18:59 Intake Total 840 Output Total 700 Balance 140 - Medications Medications: Current Medications Acetaminophen (Tylenol 325mg Tab) 650 mg PO Q6 PRN PRN Reason: Pain, moderate (4-7) Last Admin: 09/08/18 10:29 Dose: 650 mg Dextrose (Dextrose 50% Inj) 0 ml IVP .STAT PRN; Protocol PRN Reason: Hypoglycemia Protocol Dextrose (Glutose 15) 0 gm PO .ONCE PRN; Protocol PRN Reason: Hypoglycemia Protocol Docusate Sodium (Colace) 100 mg PO BID [facility] Last Admin: 09/09/18 19:47 Dose: Not Given Enoxaparin Sodium (Lovenox) 40 mg SC DAILY [facility] Ferrous Sulfate (Feosol) 325 mg PO BID [facility] Folic Acid (Folic Acid) 1 mg PO DAILY [facility] Glucagon (Glucagen Diagnostic Kit) 0 mg IM .STAT PRN; Protocol PRN Reason: Hypoglycemia Protocol Sodium Chloride (Sodium Chloride 0.9%) 1,000 mls @ 80 mls/hr IV .[id number] [facility] Last Admin: 09/09/18 20:04 Dose: 80 mls/hr Dextrose (Dextrose 5% In Water 1000 Ml) 1,000 mls @ 0 mls/hr IV .Q0M PRN; Protocol PRN Reason: Hypoglycemia Protocol Lactated Ringer's (Lactated Ringer's) 1,000 mls @ 70 mls/hr IV .[id number] [facility] Morphine Sulfate (Morphine) 2 mg IVP Q4H PRN PRN Reason: Pain, severe (8-10) Ondansetron HCl (Zofran Inj) 4 mg IVP ONCE PRN PRN Reason: Nausea/Vomiting Last Admin: 09/09/18 20:35 Dose: 4 mg Oxycodone/Acetaminophen (Percocet 5/325 Mg Tab) 2 tab PO Q4H PRN PRN Reason: Pain, moderate (4-7) Stop: 09/12/18 17:41 Oxycodone/Acetaminophen (Percocet 5/325 Mg Tab) 1 tab PO Q4 PRN PRN Reason: Pain, Mild (1-3) Stop: 09/12/18 20:01 - Labs Labs: 09/10/18 07:09 09/10/18 07:09 PT 11.2 SECONDS (9.7-12.2) 09/09/18 07:14 INR 1.0 09/09/18 07:14 APTT 30 SECONDS (21-34) 09/06/18 14:22 - Extremities Exam Additional comments: LLE: Dressings CDI sensation intact SP/DP/TN motor intact EHL/FHL/TA/G pedal pulses dopplerable calves soft NT b/l Assessment and Plan (1) Intertrochanteric fracture of left hip Assessment & Plan: POD#1 s/p L hip IT fx ORIF with IM nail -pain controlled -DVT ppx -PT/OT -d/c planning to rehab -orthopedically stable for discharge -d/w Dr. Marin who agrees with above Status: Acute
--- NOTE | 2018-09-10 12:16 | VASCLAB ---
Date of service: 09/09/2018 PROCEDURE: Carotid Duplex Exam. HISTORY: History of Syncope COMPARISON: None available. TECHNIQUE: Grayscale and duplex Doppler evaluation of the cervical carotid and vertebral arteries were performed. The common carotid, carotid bifurcations and cervical Internal Carotid Artery (ICA) and proximal External Carotid Artery (ECA) were evaluated. The vertebral arteries were evaluated for gross patency and flow direction. Report prepared by Marquise Hernández, BS, RVT FINDINGS: RIGHT CAROTID ARTERIES: 1. Common Carotid Artery: No significant focal plaque formation of the right common carotid artery. Maximum Peak Systolic velocity: 45 cm/sec: End-diastolic velocity 11 cm/sec. 2. Carotid Bifurcation: plaque formation. Maximum Peak Systolic velocity: 42 cm/sec: End-diastolic velocity 10 cm/sec. 3. Internal Carotid Artery: Plaque description: 3.1. Proximal Segment: Peak systolic velocity 83 cm/sec: End-diastolic velocity 28 cm/sec - % stenosis 0-15% 3.2. Middle Segment: Peak systolic velocity 111 cm/sec: End-diastolic velocity 34 cm/sec - % stenosis 0-15% 3.3. Distal Segment: Peak systolic velocity 71 cm/sec: End-diastolic velocity 24 cm/sec - % stenosis 0-15% 4. External Carotid Artery: No significant focal plaque formation. Peak systolic velocity 121 cm/sec 5. ICA/CCA Ratio: 2.5 LEFT CAROTID ARTERIES: 1. Common Carotid Artery: No significant focal plaque formation of the left common carotid artery. Maximum Peak Systolic velocity: 81 cm/sec: End-diastolic velocity 16 cm/sec. 2. Carotid Bifurcation: plaque formation. Maximum Peak Systolic velocity: 60 cm/sec: End-diastolic velocity 10 cm/sec. 3. Internal Carotid Artery: Plaque description: 3.1. Proximal Segment: Peak systolic velocity 77 cm/sec: End-diastolic velocity 22 cm/sec - % stenosis 0-15% 3.2. Middle Segment: Peak systolic velocity 63 cm/sec: End-diastolic velocity 19 cm/sec - % stenosis 0-15% 3.3. Distal Segment: Peak systolic velocity 51 cm/sec: End-diastolic velocity 25 cm/sec - % stenosis 0-15% 4. External Carotid Artery: No significant focal plaque formation. Peak systolic velocity 83 cm/sec 5. ICA/CCA Ratio: 1.0 VERTEBRAL ARTERIES: 1. Right Vertebral Artery: The right vertebral artery flow direction is antegrade. 2. Left Vertebral Artery: The left vertebral artery flow direction is antegrade. OTHER FINDINGS: 1. Right Brachial Blood pressure: mmHg. 2. Left Brachial Blood pressure: mmHg. 3. No atherosclerotic calcification present IMPRESSION: RIGHT: Duplex scan does not suggest hemodynamically significant stenosis of the right extracranial carotid arteries. LEFT: Duplex scan does not suggest hemodynamically significant stenosis of the left extracranial carotid arteries. NON-VASCULAR: Possible large RIGHT thyroid mass. Thyroid US recommended.
--- NOTE | 2018-09-10 13:28 | RAD ---
Date of service: 09/09/2018 PROCEDURE: Intraoperative fluoroscopy HISTORY: LEFT INTERTROCHANTERIC FX COMPARISON: Not available TECHNIQUE: Intraoperative fluoroscopy was provided for ORIF left hip fracture. Total time of fluoroscopy was 27.2 sec. Cumulative dose 1.76 mGy FINDINGS: Multiple fluoroscopic spot films are submitted during ORIF of left proximal femoral fracture. Fracture fragments are in gross anatomic alignment. IMPRESSION: Fluoroscopy provided.
--- NOTE | 2018-09-10 14:23 | CP.PCM.PN ---
Subjective - Date & Time of Evaluation Date of Evaluation: 09/10/18 Time of Evaluation: 14:20 - Subjective Subjective: Podiatry Progress Note for Dr. Bowser 82F seen at bedside for b/l LE ulcerations. Patient is AAO x 3 and NAD, resting comfortably in bedside chair. States that her hip surgery went well yesterday. Denies any acute overnight events or new pedal complaints. Denies any recent N/V/F/C/CP/SOB/D Objective - Vital Signs/Intake and Output Vital Signs (last 24 hours): Temp Pulse Resp BP Pulse Ox 98.2 F 90 20 113/66 94 L 09/10/18 07:00 09/10/18 07:00 09/10/18 07:00 09/10/18 07:00 09/10/18 07:00 Intake and Output: 09/10/18 09/10/18 06:59 18:59 Intake Total 840 Output Total 700 Balance 140 - Medications Medications: Current Medications Acetaminophen (Tylenol 325mg Tab) 650 mg PO Q6 PRN PRN Reason: Pain, moderate (4-7) Last Admin: 09/08/18 10:29 Dose: 650 mg Dextrose (Dextrose 50% Inj) 0 ml IVP .STAT PRN; Protocol PRN Reason: Hypoglycemia Protocol Dextrose (Glutose 15) 0 gm PO .ONCE PRN; Protocol PRN Reason: Hypoglycemia Protocol Docusate Sodium (Colace) 100 mg PO BID [facility] Last Admin: 09/10/18 09:42 Dose: 100 mg Enoxaparin Sodium (Lovenox) 40 mg SC DAILY [facility] Ferrous Sulfate (Feosol) 325 mg PO BID [facility] Last Admin: 09/10/18 09:43 Dose: 325 mg Folic Acid (Folic Acid) 1 mg PO DAILY [facility] Last Admin: 09/10/18 09:42 Dose: 1 mg Glucagon (Glucagen Diagnostic Kit) 0 mg IM .STAT PRN; Protocol PRN Reason: Hypoglycemia Protocol Sodium Chloride (Sodium Chloride 0.9%) 1,000 mls @ 80 mls/hr IV .[id number] [facility] Last Admin: 09/10/18 09:43 Dose: Not Given Dextrose (Dextrose 5% In Water 1000 Ml) 1,000 mls @ 0 mls/hr IV .Q0M PRN; Protocol PRN Reason: Hypoglycemia Protocol Lactated Ringer's (Lactated Ringer's) 1,000 mls @ 70 mls/hr IV .[id number] [facility] Morphine Sulfate (Morphine) 2 mg IVP Q4H PRN PRN Reason: Pain, severe (8-10) Ondansetron HCl (Zofran Inj) 4 mg IVP ONCE PRN PRN Reason: Nausea/Vomiting Last Admin: 09/09/18 20:35 Dose: 4 mg Oxycodone/Acetaminophen (Percocet 5/325 Mg Tab) 2 tab PO Q4H PRN PRN Reason: Pain, moderate (4-7) Stop: 09/12/18 17:41 Oxycodone/Acetaminophen (Percocet 5/325 Mg Tab) 1 tab PO Q4 PRN PRN Reason: Pain, Mild (1-3) Stop: 09/12/18 20:01 Last Admin: 09/10/18 10:56 Dose: 1 tab - Labs Labs: 09/10/18 07:09 09/10/18 07:09 PT 11.2 SECONDS (9.7-12.2) 09/09/18 07:14 INR 1.0 09/09/18 07:14 APTT 30 SECONDS (21-34) 09/06/18 14:22 - Constitutional Appears: Well, Non-toxic, No Acute Distress - Exam Additional comments: LE focused exam: Vasc: DP/PT pulses faintly palpable to b/l LE. Skin temperature warm to warm from proximal to distal WNL. CFT < 3 seconds to all digits. No edema noted b/l Neuro: Epicritic and protective sensation grossly intact b/l Derm: Multiple small eschars noted to b/l medial ankles with no erythema, malodor, drainage, tracking, tunneling, undermining or other signs of infection appreciated MSK: No pain on palpation to any eschars. ROM and MMT not performed due to recent hip surgery - Neurological Exam Neurological Exam: Alert, Awake, Oriented x3 - Psychiatric Exam Psychiatric exam: Normal Affect, Normal Mood Assessment and Plan - Assessment and Plan (Free Text) Assessment: 82F seen at bedside for b/l LE ulcerations Plan: Patient seen and evaluated Plan discussed with Dr. Bowser Afebrile, absent leukocytosis No dressing applied at this time No plan for surgical intervention at this time Patient instructed to continue using multipodus boots at all times in bed Podiatry will continue to follow while patient in house
--- NOTE | 2018-09-10 16:36 | OP ---
PROCEDURE DATE: 09/09/2018 PREOPERATIVE DIAGNOSIS: Left intertrochanteric hip fracture. POSTOPERATIVE DIAGNOSIS: Left intertrochanteric hip fracture. PROCEDURE: 1. Open reduction and internal fixation, left intertrochanteric hip fracture with a short interlocking intramedullary nail. 2. Position of fluoroscope, interpretation of video images. SURGEON: Jhonatan Marin MD AIRPORT OPERATIONS SPECIALIST: Chanel Salinas, certified registered nursing pizza hut assistant. SECOND DOCTOR OF PHARMACY: Cristhian David PA-C. ANESTHESIA: General endotracheal anesthesia. ANESTHESIOLOGIST: Warren Oates MD. SPECIMENS: No specimens. ESTIMATED BLOOD LOSS: 20 mL. BLOOD PRODUCTS: None. DRAINS: No drains. POSTOPERATIVE CONDITION: Good/stable. TIME OF SURGERY: Incision time 1645, time in the room 1540. OPERATIVE INDICATIONS: Aydee Montague is an 82-year-old woman who was in a senior citizen facility in [place], who sustained a fall going to the bathroom, presents to [facility] with intertrochanteric left hip fracture. The patient had a previous past history of a right intertrochanteric hip fracture. The patient presents after medical clearance at this point in time for surgical fixation. Pros, cons, risks, and benefits were discussed at length with this lucid and cognizant person, possibility of mechanical failure, infection, thromboembolic disease, possibility of secondary or tertiary surgery was discussed. Possibility of was discussed and possibility of thromboembolic disease. DESCRIPTION OF PROCEDURE: After having obtained informed consent in the above fashion, after the satisfactory induction of general endotracheal anesthesia by Dr. Oates, after having identified the side, site, and procedure and a critical pause/time out, after satisfactory induction of the anesthetic, the left lower extremity was placed in the traction positioner for reduction of the intertrochanteric hip fracture. All bony prominences were well padded. Great care was taken at the neck and central line. The torso was slightly flexed laterally to expose the greater trochanter. The left lower extremity was prepped and free draped in the usual fashion for internal fixation of hip fracture. The right lower extremity was placed in well-leg traction. Under the surgeon's direction, the fluoroscope was positioned. Video images were generated on AP and lateral and therapeutic decisions were made therefrom. The fracture was reduced at this point in time. Trochanteric prominence was identified, was marked. An incision approximately 8 to 10 cm extending superiorly from the greater trochanteric prominence was described. Skin incision was carried down through the skin and subcutaneous tissue. The fascia meera was divided. A portion of the abductor musculature was divided. At this point in time, the guidewire was placed in the intramedullary canal and verification of position was offered on AP and lateral image intensification views. The greater trochanteric reamers were introduced with the guide. The greater trochanter was entered. The reamer was buried through the stop and at this point in time, the wire was removed. A short interlocking intermedullary kirsten was introduced. Position was found to be acceptable. Verification of positioning was offered on AP and lateral image intensification views. The triflange nail guide was placed and the skin was indented. The secondary incision was accomplished using #10 blade. The three-tubed insertion device was impacted to the lateral aspect of the femur. It was tightened with the sprocket laterally, and this having been accomplished, the K-wire was introduced. Verification of position was offered on AP and lateral image intensification views. The sizing was found to be 80 mm, reaming was accomplished at 80 mm. The 80-mm triflange nail was impacted into position and was found to be acceptable on AP and lateral image intensification views. The distal interlock was introduced in the same fashion. The two-tubed introducer was used to indent the skin. 1 cm incision was accomplished. The introducer was introduced. Drilling was accomplished. A 32-mm screw was sounded and a 32-mm screw was introduced. The wound was thoroughly irrigated at this point in time. Hemostasis was controlled with the Aquamantys. Closure of the fascia meera and the abductor musculature was with #2 Quill. Closure of the two stab wounds with the interlocking nail and the triflange nail are #2 Quill, 0 Vicryl, 2-0 Vicryl and domo for skin proximally. Compression dressing was applied. Verification of position was offered on postoperative x-ray. The patient was transferred from the operating table to a stretcher having tolerated the procedure well. No complications. Blood loss was approximately 20 mL. No blood products given. The patient was stable in recovery. Jhonatan Marin MD [facility] # [id number]
--- NOTE | 2018-09-10 18:50 | CP.PCM.PN ---
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 Pt is aware that she will be going to [facility] and agrees w/ plan. Denies CP SOB FC NV Objective - Vital Signs/Intake and Output Vital Signs (last 24 hours): Temp Pulse Resp BP Pulse Ox 97.7 F 81 18 101/61 99 09/10/18 15:30 09/10/18 15:30 09/10/18 15:30 09/10/18 15:30 09/10/18 15:30 Intake and Output: 09/10/18 09/10/18 06:59 18:59 Intake Total 840 Output Total 700 Balance 140 - Medications Medications: Current Medications Acetaminophen (Tylenol 325mg Tab) 650 mg PO Q6 PRN PRN Reason: Pain, moderate (4-7) Last Admin: 09/08/18 10:29 Dose: 650 mg Dextrose (Dextrose 50% Inj) 0 ml IVP .STAT PRN; Protocol PRN Reason: Hypoglycemia Protocol Dextrose (Glutose 15) 0 gm PO .ONCE PRN; Protocol PRN Reason: Hypoglycemia Protocol Docusate Sodium (Colace) 100 mg PO BID [facility] Last Admin: 09/10/18 09:42 Dose: 100 mg Enoxaparin Sodium (Lovenox) 40 mg SC DAILY [facility] Ferrous Sulfate (Feosol) 325 mg PO BID [facility] Last Admin: 09/10/18 09:43 Dose: 325 mg Folic Acid (Folic Acid) 1 mg PO DAILY [facility] Last Admin: 09/10/18 09:42 Dose: 1 mg Glucagon (Glucagen Diagnostic Kit) 0 mg IM .STAT PRN; Protocol PRN Reason: Hypoglycemia Protocol Sodium Chloride (Sodium Chloride 0.9%) 1,000 mls @ 80 mls/hr IV .[id number] [facility] Last Admin: 09/10/18 09:43 Dose: Not Given Dextrose (Dextrose 5% In Water 1000 Ml) 1,000 mls @ 0 mls/hr IV .Q0M PRN; Protocol PRN Reason: Hypoglycemia Protocol Lactated Ringer's (Lactated Ringer's) 1,000 mls @ 70 mls/hr IV .[id number] [facility] Morphine Sulfate (Morphine) 2 mg IVP Q4H PRN PRN Reason: Pain, severe (8-10) Ondansetron HCl (Zofran Inj) 4 mg IVP ONCE PRN PRN Reason: Nausea/Vomiting Last Admin: 09/09/18 20:35 Dose: 4 mg Oxycodone/Acetaminophen (Percocet 5/325 Mg Tab) 2 tab PO Q4H PRN PRN Reason: Pain, moderate (4-7) Stop: 09/12/18 17:41 Oxycodone/Acetaminophen (Percocet 5/325 Mg Tab) 1 tab PO Q4 PRN PRN Reason: Pain, Mild (1-3) Stop: 09/12/18 20:01 Last Admin: 09/10/18 10:56 Dose: 1 tab - Labs Labs: 09/10/18 07:09 09/10/18 07:09 PT 11.2 SECONDS (9.7-12.2) 09/09/18 07:14 INR 1.0 09/09/18 07:14 APTT 30 SECONDS (21-34) 09/06/18 14:22 - Additional Findings Additional findings: - Constitutional Appears: Non-toxic, No Acute Distress, Cachectic - Head Exam Head Exam: ATRAUMATIC, NORMAL INSPECTION, NORMOCEPHALIC - Eye Exam Eye Exam: EOMI, Normal appearance - ENT Exam ENT Exam: Mucous Membranes Dry, Normal Exam - Neck Exam Neck exam: Positive for: Normal Inspection. Negative for: Lymphadenopathy - Respiratory Exam Respiratory Exam: Decreased Breath Sounds (right), Rales (right), NORMAL BREATHING PATTERN - Cardiovascular Exam Cardiovascular Exam: REGULAR RHYTHM, +S1, +S2. absent: Tachycardia - GI/Abdominal Exam GI & Abdominal Exam: Normal Bowel Sounds, Soft. absent: Tenderness - Extremities Exam Extremities exam: Positive for: normal capillary refill, pedal pulses present. Negative for: calf tenderness, normal inspection, pedal edema Additional comments: B/L Multipodous Boots. LLE: No swelling/ecchymosis/erythema, non TTP(light), sx wound covered, no drainage Left medial malleolus ulcer, well healing, discolored RLE: Medial malleolus ulcer, well healing, crusted over, no active drainage LUE: elbow, eschars on posterior aspect - Neurological Exam Neurological exam: Alert - Psychiatric Exam Psychiatric exam: Normal Affect, Normal Mood - Skin Skin Exam: Dry, Warm Additional comments: Dry on exam Assessment and Plan - Assessment and Plan (Free Text) Assessment: Assessment and Plan 82 year old female with pmhx of UC, pancreatitis and recent B/L LE ulcers admitted s/p fall. Imaging positive for hip fracture. POD#1 Plan: Acute Left Hip Fracture Left knee xray: negative for acute pathology Hip/Pelvis xray: concern for left hip fracture, recommend CT Left hip CT: Non-displaced intertrochanteric fracture of left hip ECHO: PENDING OFficial Read. -fall precautions -farmer cath -Pain medication PRN, Tylenol-moderate/percocet severe -Cardio consult, Dr. Benz; per cardio- cleared for ORIF -Ortho consult, Dr. Marin ORIF with interlocking/intram,eduallary kirsten L femur 4/8 stable for dc to [facility] S/P Fall Head CT: Negative for any acute abnormalities. Elbow X-ray: negative. CXR: NEGATIVE LE ulcers, chronic -previously treated by Podiatry and ID with Merrem for wounds + for Pseudomonas, staph, enterococcus -Wrapped -SCD contraindication -Podiatry consult, Dr. Mague REESE eschar Elbow X-ray: negative. UC, chronic, stable -last exacerbation 8+ yrs ago treated w/ meds and dietary modification Ppx VTE: Lovenox 40 daily GI: HHD NS @80 Dispo: pending approval for [facility] CK PGY1 <Anjali Jett V - Last Filed: 09/11/18 20:23> Objective - Vital Signs/Intake and Output Vital Signs (last 24 hours): Temp Pulse Resp BP Pulse Ox 97.8 F 90 20 137/72 97 09/11/18 07:00 09/11/18 07:00 09/11/18 07:00 09/11/18 07:00 09/11/18 07:00 - Labs Labs: 09/11/18 06:04 09/11/18 06:04 PT 11.2 SECONDS (9.7-12.2) 09/09/18 07:14 INR 1.0 09/09/18 07:14 APTT 30 SECONDS (21-34) 09/06/18 14:22 Assessment and Plan (1) Intertrochanteric fracture of left hip Status: Acute (2) Prophylactic measure Status: Acute Attending/Attestation - Attestation I have personally seen and examined this patient.: Yes I have fully participated in the care of the patient.: Yes I have reviewed all pertinent clinical information, including history, physical exam and plan: Yes Notes (Text): This is a late computer entry for September 10, 2018. Patient seen, examined, case discussed with medical coding specialist. Patient reports pain is improved postoperative day 1. Patient reports mild urinary retention and reports constipated. Orthopedic patient is stable for them standpoint for discharge. We will place discharge order for acute [facility] for discharge planning. Discussed with case management who were currently working to get the authorization for rehab.
[2018-09-10] MEDS: Enoxaparin 40 mg Syringe SC SCH (20:23)
--- NOTE | 2018-09-10 20:34 | PN ---
DATE: 09/10/2018 SUBJECTIVE: The patient underwent open reduction and internal fixation of left intertrochanteric fracture with intramedullary nail with C-arm. The patient denies any chest pain today or shortness of breath. PHYSICAL EXAMINATION: VITAL SIGNS: Blood pressure 133/66, heart rate 90, temperature 98.2, respirations 20. HEENT: Normocephalic. CHEST: Clear. HEART: S1 and S2, regular. EXTREMITIES: No edema. LABORATORY DATA: Today's hemoglobin and hematocrit 10.5 and 30.9. White count and platelet count are within normal limits. Today's SMA-7 is within normal limits except for glucose 116, anion gap of 9 and creatinine 0.5. ASSESSMENT: 1. Status post open reduction and internal fixation of left intertrochanteric fracture with intramedullary nailing. 2. Mild mitral insufficiency. 3. Mild pulmonary hypertension. RECOMMENDATIONS: Continue current Colace, Feosol, subcutaneous Lovenox 40 mg once a day, morphine sulfate 2 mg intravenously every 4 hours p.r.n., and obtain 12-lead EKG. Mesfin Benz MD
[2018-09-11 01:35] VITALS: RESP 20; TEMP 97.8; O2SAT 97
[2018-09-11 06:33] LABS: BLOOD UREA NITROGEN 13 mg/dL (7-17); CALCIUM 8.1 mg/dl (8.6-10.4); GFR NON-AFRICAN AMERICAN > 60
[2018-09-11] MEDS: Sodium Chloride 0.9% 1,000 ML IV SCH (07:04)
[2018-09-11 07:12] LABS: HEMOGLOBIN 10.7 g/dL (11.0-16.0); MEAN CORPUSCULAR HEMOGLOBIN 32.2 pg (27.0-31.0); MEAN CORPUSCULAR HGB CONC 34.2 g/dL (33.0-37.0); MEAN PLATELET VOLUME 10.2 fL (7.2-11.7); RBC 3.33 Mil/uL (3.80-5.20); RED CELL DISTRIBUTION WIDTH 13.4 % (11.5-14.5); WHITE BLOOD COUNT 8.9 K/uL (4.8-10.8)
[2018-09-11] MEDS ORDERED: Potassium Chloride 20 mEq/15 ml LIQ UD PO STA (07:56)
[2018-09-11 08:04] VITALS: BP 137/72; PULSE 90
[2018-09-11] MEDS: Enoxaparin 40 mg Syringe SC SCH (09:05)
--- NOTE | 2018-09-11 11:01 | CP.PCM.PN ---
Subjective - Date & Time of Evaluation Date of Evaluation: 09/11/18 Time of Evaluation: 11:00 - Subjective Subjective: Medical Attending Note: Patient seen and examined. Patient reports pain is controlled. Patient denies headache, denies chest pain, denies palpitations, denies shortness of breathe, denies abdominal pain, reports last bowel movement was about two days ago, reports she is urinating. Discussed with clinical partner at bedside, patient did have a bowel movement today. Objective - Vital Signs/Intake and Output Vital Signs (last 24 hours): Temp Pulse Resp BP Pulse Ox 97.8 F 90 20 137/72 97 09/11/18 07:00 09/11/18 07:00 09/11/18 07:00 09/11/18 07:00 09/11/18 07:00 Intake and Output: 09/11/18 09/11/18 06:59 18:59 Intake Total 640 Output Total 300 Balance 340 - Medications Medications: Current Medications Acetaminophen (Tylenol 325mg Tab) 650 mg PO Q6 PRN PRN Reason: Pain, moderate (4-7) Last Admin: 09/08/18 10:29 Dose: 650 mg Dextrose (Dextrose 50% Inj) 0 ml IVP .STAT PRN; Protocol PRN Reason: Hypoglycemia Protocol Dextrose (Glutose 15) 0 gm PO .ONCE PRN; Protocol PRN Reason: Hypoglycemia Protocol Docusate Sodium (Colace) 100 mg PO BID [facility] Last Admin: 09/11/18 09:06 Dose: 100 mg Enoxaparin Sodium (Lovenox) 40 mg SC DAILY [facility] Last Admin: 09/11/18 09:05 Dose: 40 mg Ferrous Sulfate (Feosol) 325 mg PO BID [facility] Last Admin: 09/11/18 09:06 Dose: 325 mg Folic Acid (Folic Acid) 1 mg PO DAILY [facility] Last Admin: 09/11/18 09:06 Dose: 1 mg Glucagon (Glucagen Diagnostic Kit) 0 mg IM .STAT PRN; Protocol PRN Reason: Hypoglycemia Protocol Sodium Chloride (Sodium Chloride 0.9%) 1,000 mls @ 80 mls/hr IV .[id number] [facility] Last Admin: 09/11/18 07:04 Dose: 80 mls/hr Dextrose (Dextrose 5% In Water 1000 Ml) 1,000 mls @ 0 mls/hr IV .Q0M PRN; Protocol PRN Reason: Hypoglycemia Protocol Lactated Ringer's (Lactated Ringer's) 1,000 mls @ 70 mls/hr IV .[id number] [facility] Last Admin: 09/10/18 22:07 Dose: Not Given Morphine Sulfate (Morphine) 2 mg IVP Q4H PRN PRN Reason: Pain, severe (8-10) Ondansetron HCl (Zofran Inj) 4 mg IVP ONCE PRN PRN Reason: Nausea/Vomiting Last Admin: 09/09/18 20:35 Dose: 4 mg Oxycodone/Acetaminophen (Percocet 5/325 Mg Tab) 2 tab PO Q4H PRN PRN Reason: Pain, moderate (4-7) Stop: 09/12/18 17:41 Oxycodone/Acetaminophen (Percocet 5/325 Mg Tab) 1 tab PO Q4 PRN PRN Reason: Pain, Mild (1-3) Stop: 09/12/18 20:01 Last Admin: 09/10/18 10:56 Dose: 1 tab - Labs Labs: 09/11/18 06:04 09/11/18 06:04 PT 11.2 SECONDS (9.7-12.2) 09/09/18 07:14 INR 1.0 09/09/18 07:14 APTT 30 SECONDS (21-34) 09/06/18 14:22 - Constitutional Appears: Non-toxic, No Acute Distress - Head Exam Head Exam: NORMAL INSPECTION - Eye Exam Eye Exam: EOMI - ENT Exam ENT Exam: Mucous Membranes Moist - Respiratory Exam Respiratory Exam: Clear to Ausculation Bilateral, NORMAL BREATHING PATTERN. absent: Rales, Rhonchi, Wheezes - Cardiovascular Exam Cardiovascular Exam: REGULAR RHYTHM, +S1, +S2 - GI/Abdominal Exam GI & Abdominal Exam: Soft, Normal Bowel Sounds. absent: Distended, Firm, Guarding, Rigid, Tenderness, Hypoactive Bowel Sounds Additional comments: left hip pain: dressing: clean/dry intact - Extremities Exam Extremities Exam: absent: Pedal Edema, Tenderness Additional comments: pedal pulses intact - Neurological Exam Neurological Exam: Alert, Awake, Oriented x3 - Psychiatric Exam Psychiatric exam: Normal Affect, Normal Mood - Skin Skin Exam: Dry, Intact, Normal Color, Warm Assessment and Plan (1) Intertrochanteric fracture of left hip Status: Acute (2) Prophylactic measure Status: Acute Attending/Attestation - Attestation I have personally seen and examined this patient.: Yes I have fully participated in the care of the patient.: Yes I have reviewed all pertinent clinical information, including history, physical exam and plan: Yes Notes (Text): Assessment/plan 1. Acute Left Hip Fracture Assessment/Plan * Orthopedic on case help appreciated * POD#1 s/p L hip IT fx ORIF with IM nail * pain controlled * DVT ppx * PT/OT * d/c planning to rehab * orthopedically stable for discharge * Preop/intraoperative/postop management per orthopedic * Cardiology on board help appreciated * imaging: * Left knee xray: negative for acute pathology * Hip/Pelvis xray: concern for left hip fracture, recommend CT * Left hip CT: Non-displaced intertrochanteric fracture of left hip * ECHO: normal left ventricular wall thickness, left ventricular function is normal, left ventricular ejection fraction is within normal range, normal LV segmental wall motion, mod tricupsid regurgitation. * Anticoagulation per ortho * Restarted postoperative * pain management per ortho * Percocet 5/325 tab POQ4H PRN mild 1-3 * Percocet 5/325 2 tab PO Q4H PRN moderate 4-7 * We are awaiting authorization from rehab for discharge since 09/10/18. Case management working on this. 2. Hypokalemia Assessment/Plan * monitor and replete 3. History of Ulcerative colitis-->patient is not in acute flare 4. Prior history of pancreatitis-->patient is not in acute flare 5. History of b/l LE ulcers-->followed by podiatry in house no acute intervention 6. Prophylactic measure Ppx * Lovenox 40mg subq daily Disposition: pending authorization from rehab.
--- NOTE | 2018-09-11 14:05 | CP.PCM.PN ---
Subjective - Date & Time of Evaluation Date of Evaluation: 09/11/18 Time of Evaluation: 08:00 - Subjective Subjective: Patient states hip pain is improving. Dneies cp/sob/dizziness/numbness/tingling.+BM, good appetite Objective - Vital Signs/Intake and Output Vital Signs (last 24 hours): Temp Pulse Resp BP Pulse Ox 97.8 F 90 20 137/72 97 09/11/18 07:00 09/11/18 07:00 09/11/18 07:00 09/11/18 07:00 09/11/18 07:00 Intake and Output: 09/11/18 09/11/18 06:59 18:59 Intake Total 640 Output Total 300 Balance 340 - Labs Labs: 09/11/18 06:04 09/11/18 06:04 PT 11.2 SECONDS (9.7-12.2) 09/09/18 07:14 INR 1.0 09/09/18 07:14 APTT 30 SECONDS (21-34) 09/06/18 14:22 - Extremities Exam Additional comments: dressing changed. Incision intact, dry, no erythema. +ROM ankle/toes, sensation intact +DP/PT pulses calves soft NT neg homans Assessment and Plan (1) Intertrochanteric fracture of left hip Assessment & Plan: POD#2 s/p ORIF left hip ortho stable cont PT OT cont VTE proph f/u Dr. Marin 2 weeks call for appt d/w DR. Cormier, agrees with above Status: Acute
--- NOTE | 2018-09-11 15:01 | CP.PCM.DIS ---
<Sunday Baker - Last Filed: 09/11/18 17:26> Provider - Provider Date of Admission: 09/06/18 16:03 Attending physician: Anjali Jett DO Consults: 09/06/18 15:45 Physician Consult Stat Comment: LEFT INTERTROCHANTERIC FX Consulting Provider: Jhonatan Marin III Consulting Physician: Jhonatan Marin III Reason for Consult: ORTHOP-EDICS 09/06/18 18:05 Cardiology Consult Routine Comment: Consulting Provider: Mesfin Benz Consulting Physician: Mesfin Benz Reason for Consult: cardiac clearance, hx of syncope 09/06/18 18:07 Podiatry Consult Routine Comment: Consulting Provider: Nikita Bowser Consulting Physician: Nikita Bowser Reason for Consult: LE ulcers 09/09/18 17:40 Case Management Referral Routine Comment: Physician Instructions: Reason For Exam: Reason for Referral: Discharge Planning Time Spent in preparation of Discharge (in minutes): 45 Diagnosis - Discharge Diagnosis (1) Chronic ulcer of ankle Status: Chronic (2) Intertrochanteric fracture of left hip Status: Acute (3) History of ulcerative colitis Status: Chronic (4) History of pancreatitis Status: Chronic (5) Hypokalemia Status: Resolved Hospital Course - Lab Results Lab Results: Most Recent Lab Values WBC 8.9 K/uL (4.8-10.8) 09/11/18 06:04 RBC 3.33 Mil/uL (3.80-5.20) L 09/11/18 06:04 Hgb 10.7 g/dL (11.0-16.0) L 09/11/18 06:04 Hct 31.3 % (34.0-47.0) L 09/11/18 06:04 MCV 94.0 fL (81.0-99.0) 09/11/18 06:04 MCH 32.2 pg (27.0-31.0) H 09/11/18 06:04 MCHC 34.2 g/dL (33.0-37.0) 09/11/18 06:04 RDW 13.4 % (11.5-14.5) 09/11/18 06:04 Plt Count 223 K/uL (130-400) 09/11/18 06:04 MPV 10.2 fL (7.2-11.7) 09/11/18 06:04 Neut % (Auto) 84.0 % (50.0-75.0) H 09/10/18 07:09 Lymph % (Auto) 10.4 % (20.0-40.0) L 09/10/18 07:09 [place] % (Auto) 4.9 % (0.0-10.0) 09/10/18 07:09 Eos % (Auto) 0.3 % (0.0-4.0) 09/10/18 07:09 Baso % (Auto) 0.4 % (0.0-2.0) 09/10/18 07:09 Neut # (Auto) 9.0 K/uL (1.8-7.0) H 09/10/18 07:09 Lymph # (Auto) 1.1 K/uL (1.0-4.3) 09/10/18 07:09 Sierra # (Auto) 0.5 K/uL (0.0-0.8) 09/10/18 07:09 Eos # (Auto) 0.0 K/uL (0.0-0.7) 09/10/18 07:09 Baso # (Auto) 0.0 K/uL (0.0-0.2) 09/10/18 07:09 PT 11.2 SECONDS (9.7-12.2) 09/09/18 07:14 INR 1.0 09/09/18 07:14 APTT 30 SECONDS (21-34) 09/06/18 14:22 Sodium 134 mmol/L (132-148) 09/11/18 06:04 Potassium 3.5 mmol/L (3.6-5.2) L 09/11/18 06:04 Chloride 104 mmol/L (98-107) 09/11/18 06:04 Carbon Dioxide 29 mmol/L (22-30) 09/11/18 06:04 Anion Gap 5 (10-20) L 09/11/18 06:04 BUN 13 mg/dL (7-17) 09/11/18 06:04 Creatinine 0.5 mg/dL (0.7-1.2) L 09/11/18 06:04 Est GFR ( Amer) > 60 09/11/18 06:04 Est GFR (Non-Af Amer) > 60 09/11/18 06:04 POC Glucose (mg/dL) 230 mg/dL (65-110) H 09/10/18 11:54 Random Glucose 128 mg/dL (65-105) H 09/11/18 06:04 Calcium 8.1 mg/dl (8.6-10.4) L 09/11/18 06:04 Phosphorus 3.6 mg/dL (2.5-4.5) 09/10/18 07:09 Magnesium 1.7 mg/dL (1.6-2.3) 09/10/18 07:09 Total Bilirubin 0.3 mg/dL (0.2-1.3) 09/10/18 07:09 AST 48 U/L (14-36) H D 09/10/18 07:09 ALT 25 U/L (9-52) 09/10/18 07:09 Alkaline Phosphatase 136 U/L (38-126) H D 09/10/18 07:09 Total Creatine Kinase 262 U/L (30-135) H 09/06/18 18:07 Total Protein 5.4 g/dL (6.3-8.3) L 09/10/18 07:09 Albumin 2.9 g/dL (3.5-5.0) L 09/10/18 07:09 Globulin 2.5 gm/dL (2.2-3.9) 09/10/18 07:09 Albumin/Globulin Ratio 1.2 (1.0-2.1) 09/10/18 07:09 25-OH Vitamin D Total 33.1 NG/ML (30.0-100.0) 09/09/18 07:16 Urine Color Yellow (YELLOW) 09/06/18 20:21 Urine Clarity Clear (Clear) 09/06/18 20:21 Urine pH 7.0 (5.0-8.0) 09/06/18 20:21 Ur Specific [place] 1.009 (1.003-1.030) 09/06/18 20:21 Urine Protein Negative mg/dL (NEGATIVE) 09/06/18 20:21 Urine Glucose (UA) Normal mg/dL (Normal) 09/06/18 20:21 Urine Ketones Trace mg/dL (NEGATIVE) 09/06/18 20:21 Urine Blood 1+ (NEGATIVE) H 09/06/18 20:21 Urine Nitrate Negative (NEGATIVE) 09/06/18 20:21 Urine Bilirubin Negative (NEGATIVE) 09/06/18 20:21 Urine Urobilinogen Normal mg/dL (0.2-1.0) 09/06/18 20:21 Ur Leukocyte Esterase Neg Arturo/uL (Negative) 09/06/18 20:21 Urine WBC (Auto) < 1 /hpf (0-5) 09/06/18 20:21 Urine RBC (Auto) 2 /hpf (0-3) 09/06/18 20:21 Blood Type O POSITIVE 09/09/18 07:14 Antibody Screen Negative 09/09/18 07:14 - Hospital Course Hospital Course: CC: Fall on bottom/back Patient is an 82 year old female with pmhx of UC, non-healing B/L LE ulcers, pancreatitis presented to ED for evaluation on diffuse body pain s/p fall this morning. Patient reports she awoke at 2am to use the restroom, and sustained a fall to bottom/back as it was dark. Patient reports she remained on the ground from 2-7am until she called a friend to bring her in for further evaluation. Patient reports an episode of urination while down, however voluntary 2/2 inability to get to restroom. Denies trauma to head, LOC, PIERCE, incontinence. Patient is unable to localize pain and says pain is tolerable as long as she remains immobile. Of note: pt was recently admitted for treatment of non-healing B/L LE ulcers and treated with Merrem for wound cxs growing Pseudomonas, enterococcus and staph, blood cxs negative; released to [facility] for further treatment. Patient had just been discharged home recently. 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 Pt had sx with Dr Marin, pt was dc home with lovenox 40 daily for anticoagulation. Pt improved and felt mild soreness after the procedure, pt worked with PT and Ot and was stable for DC to [facility]. Dr Khalida Schuler provided cardiac clearance 1. Acute Left Hip Fracture Assessment/Plan * Orthopedic on case help appreciated * POD#1 s/p L hip IT fx ORIF with IM nail * pain controlled * DVT ppx * PT/OT * d/c planning to rehab * orthopedically stable for discharge * Preop/intraoperative/postop management per orthopedic * Cardiology on board help appreciated * imaging: * Left knee xray: negative for acute pathology * Hip/Pelvis xray: concern for left hip fracture, recommend CT * Left hip CT: Non-displaced intertrochanteric fracture of left hip * ECHO: normal left ventricular wall thickness, left ventricular function is normal, left ventricular ejection fraction is within normal range, normal LV segmental wall motion, mod tricupsid regurgitation. * Anticoagulation per ortho * Restarted postoperative * pain management per ortho * Percocet 5/325 tab POQ4H PRN mild 1-3 * Percocet 5/325 2 tab PO Q4H PRN moderate 4-7 * We are awaiting authorization from rehab for discharge since 09/10/18. Case management working on this. 2. Hypokalemia Assessment/Plan * monitor and replete 3. History of Ulcerative colitis-->patient is not in acute flare 4. Prior history of pancreatitis-->patient is not in acute flare 5. History of b/l LE ulcers-->followed by podiatry in house no acute intervention 6. Prophylactic measure Ppx * Lovenox 40mg subq daily Discharge Exam - Head Exam Head Exam: NORMAL INSPECTION - Additional Findings Additional findings: - Constitutional Appears: Non-toxic, No Acute Distress - Head Exam Head Exam: NORMAL INSPECTION - Eye Exam Eye Exam: EOMI - ENT Exam ENT Exam: Mucous Membranes Moist - Respiratory Exam Respiratory Exam: Clear to Ausculation Bilateral, NORMAL BREATHING PATTERN. absent: Rales, Rhonchi, Wheezes - Cardiovascular Exam Cardiovascular Exam: REGULAR RHYTHM, +S1, +S2 - GI/Abdominal Exam GI & Abdominal Exam: Soft, Normal Bowel Sounds. absent: Distended, Firm, Guarding, Rigid, Tenderness, Hypoactive Bowel Sounds Additional comments: left hip pain: dressing: clean/dry intact - Extremities Exam Extremities Exam: absent: Pedal Edema, Tenderness Additional comments: pedal pulses intact - Neurological Exam Neurological Exam: Alert, Awake, Oriented x3 - Psychiatric Exam Psychiatric exam: Normal Affect, Normal Mood - Skin Skin Exam: Dry, Intact, Normal Color, Warm Discharge Plan - Follow Up Plan Condition: STABLE Disposition: REHAB FACILITY/REHAB UNIT Instructions: Femur Fracture (DC), Open Reduction and Internal Fixation Surgery (DC), Managing Pain After Surgery Additional Instructions: Patient is to be discharged to subacute rehab with the following medications Tylenol q6 prn Colace TID Lovenox 40 daily Feosol Daily Folic Acid Daily Percocet 1 tab q4 prn Please follow up with Dr Marin your Orthopaedic Surgeon within 7 days Please follow up with Dr Corey your PMD within 14 days Please follow up with Dr Benz your Tag Writer within 7 days Please follow up with Dr Bowser your Shader And Toner within 14 days Take Care and be well Carrie Baker DO Referrals: Jhonatan Marin III, MD [Staff Provider] - Ta Corey [Staff Provider] - Mesfin Benz MD [Staff Provider] - Nikita Bowser DPM [Staff Provider] - <Anjali Jett V - Last Filed: 09/11/18 20:26> Provider - Provider Date of Admission: 09/06/18 16:03 Attending physician: Anjali Jett DO Consults: 09/06/18 15:45 Physician Consult Stat Comment: LEFT INTERTROCHANTERIC FX Consulting Provider: Jhonatan Marin III Consulting Physician: Jhonatan Marin III Reason for Consult: ORTHOP-EDICS 09/06/18 18:05 Cardiology Consult Routine Comment: Consulting Provider: Mesfin Benz Consulting Physician: Mesfin Benz Reason for Consult: cardiac clearance, hx of syncope 09/06/18 18:07 Podiatry Consult Routine Comment: Consulting Provider: Nikita Bowser Consulting Physician: Nikita Bowser Reason for Consult: LE ulcers 09/09/18 17:40 Case Management Referral Routine Comment: Physician Instructions: Reason For Exam: Reason for Referral: Discharge Planning Diagnosis - Discharge Diagnosis (1) Intertrochanteric fracture of left hip Status: Acute (2) Prophylactic measure Status: Acute Hospital Course - Lab Results Lab Results: Most Recent Lab Values WBC 8.9 K/uL (4.8-10.8) 09/11/18 06:04 RBC 3.33 Mil/uL (3.80-5.20) L 09/11/18 06:04 Hgb 10.7 g/dL (11.0-16.0) L 09/11/18 06:04 Hct 31.3 % (34.0-47.0) L 09/11/18 06:04 MCV 94.0 fL (81.0-99.0) 09/11/18 06:04 MCH 32.2 pg (27.0-31.0) H 09/11/18 06:04 MCHC 34.2 g/dL (33.0-37.0) 09/11/18 06:04 RDW 13.4 % (11.5-14.5) 09/11/18 06:04 Plt Count 223 K/uL (130-400) 09/11/18 06:04 MPV 10.2 fL (7.2-11.7) 09/11/18 06:04 Neut % (Auto) 84.0 % (50.0-75.0) H 09/10/18 07:09 Lymph % (Auto) 10.4 % (20.0-40.0) L 09/10/18 07:09 [place] % (Auto) 4.9 % (0.0-10.0) 09/10/18 07:09 Eos % (Auto) 0.3 % (0.0-4.0) 09/10/18 07:09 Baso % (Auto) 0.4 % (0.0-2.0) 09/10/18 07:09 Neut # (Auto) 9.0 K/uL (1.8-7.0) H 09/10/18 07:09 Lymph # (Auto) 1.1 K/uL (1.0-4.3) 09/10/18 07:09 [place] # (Auto) 0.5 K/uL (0.0-0.8) 09/10/18 07:09 Eos # (Auto) 0.0 K/uL (0.0-0.7) 09/10/18 07:09 Baso # (Auto) 0.0 K/uL (0.0-0.2) 09/10/18 07:09 PT 11.2 SECONDS (9.7-12.2) 09/09/18 07:14 INR 1.0 09/09/18 07:14 APTT 30 SECONDS (21-34) 09/06/18 14:22 Sodium 134 mmol/L (132-148) 09/11/18 06:04 Potassium 3.5 mmol/L (3.6-5.2) L 09/11/18 06:04 Chloride 104 mmol/L (98-107) 09/11/18 06:04 Carbon Dioxide 29 mmol/L (22-30) 09/11/18 06:04 Anion Gap 5 (10-20) L 09/11/18 06:04 BUN 13 mg/dL (7-17) 09/11/18 06:04 Creatinine 0.5 mg/dL (0.7-1.2) L 09/11/18 06:04 Est GFR ( Amer) > 60 09/11/18 06:04 Est GFR (Non-Af Amer) > 60 09/11/18 06:04 POC Glucose (mg/dL) 230 mg/dL (65-110) H 09/10/18 11:54 Random Glucose 128 mg/dL (65-105) H 09/11/18 06:04 Calcium 8.1 mg/dl (8.6-10.4) L 09/11/18 06:04 Phosphorus 3.6 mg/dL (2.5-4.5) 09/10/18 07:09 Magnesium 1.7 mg/dL (1.6-2.3) 09/10/18 07:09 Total Bilirubin 0.3 mg/dL (0.2-1.3) 09/10/18 07:09 AST 48 U/L (14-36) H D 09/10/18 07:09 ALT 25 U/L (9-52) 09/10/18 07:09 Alkaline Phosphatase 136 U/L (38-126) H D 09/10/18 07:09 Total Creatine Kinase 262 U/L (30-135) H 09/06/18 18:07 Total Protein 5.4 g/dL (6.3-8.3) L 09/10/18 07:09 Albumin 2.9 g/dL (3.5-5.0) L 09/10/18 07:09 Globulin 2.5 gm/dL (2.2-3.9) 09/10/18 07:09 Albumin/Globulin Ratio 1.2 (1.0-2.1) 09/10/18 07:09 25-OH Vitamin D Total 33.1 NG/ML (30.0-100.0) 09/09/18 07:16 Urine Color Yellow (YELLOW) 09/06/18 20:21 Urine Clarity Clear (Clear) 09/06/18 20:21 Urine pH 7.0 (5.0-8.0) 09/06/18 20:21 Ur Specific [place] 1.009 (1.003-1.030) 09/06/18 20:21 Urine Protein Negative mg/dL (NEGATIVE) 09/06/18 20:21 Urine Glucose (UA) Normal mg/dL (Normal) 09/06/18 20:21 Urine Ketones Trace mg/dL (NEGATIVE) 09/06/18 20:21 Urine Blood 1+ (NEGATIVE) H 09/06/18 20:21 Urine Nitrate Negative (NEGATIVE) 09/06/18 20:21 Urine Bilirubin Negative (NEGATIVE) 09/06/18 20:21 Urine Urobilinogen Normal mg/dL (0.2-1.0) 09/06/18 20:21 Ur Leukocyte Esterase Neg Arturo/uL (Negative) 09/06/18 20:21 Urine WBC (Auto) < 1 /hpf (0-5) 09/06/18 20:21 Urine RBC (Auto) 2 /hpf (0-3) 09/06/18 20:21 Blood Type O POSITIVE 09/09/18 07:14 Antibody Screen Negative 09/09/18 07:14 Attending/Attestation - Attestation I have personally seen and examined this patient.: Yes I have fully participated in the care of the patient.: Yes I have reviewed all pertinent clinical information, including history, physical exam and plan: Yes Notes (Text): Patient seen, examined, case discussed with medical front desk coordinator. Patient seen earlier that day noted in my progress note for the same date. Patient is postoperative day 2 of left hip fracture surgery orthopedic remains stable for discharge. Patient follow-up with orthopedic within 2 weeks. Discussed with case management patient has received authorization for subacute rehab. Patient will be discharged today. Also left hip clean dry intact no pain on palpation on my exam earlier today as well. This is a brief summary of patient's hospitalization please refer to EMR for full detail record
--- NOTE | 2018-09-11 16:53 | CARD ---
APPROVED REPORT Date of service: 09/10/2018 EKG Measurement Heart [id number] <Conclusion> Normal sinus rhythm Left ventricular hypertrophy with QRS widening Abnormal ECG
== END 2018-09-11 13:03 | DRG 481 ==
LOC: C.ER 08:39 → C.6T 16:03
PROVIDERS: ADMIT Hospitalist; ATTEND Hospitalist
PROC: 0QS706Z Reposition Left Upper Femur with Intramedullary Internal Fixation Device, Open Approach (ICD-10-PCS; principal; 2018-09-09 14:00)
DX: S72.145A Nondisplaced intertrochanteric fracture of left femur, initial encounter for closed fracture (principal); E87.6 Hypokalemia; L97.329 Non-pressure chronic ulcer of left ankle with unspecified severity; L97.319 Non-pressure chronic ulcer of right ankle with unspecified severity; K51.90 Ulcerative colitis, unspecified, without complications; M19.90 Unspecified osteoarthritis, unspecified site; M85.80 Other specified disorders of bone density and structure, unspecified site; I27.20 Pulmonary hypertension, unspecified; R74.8 Abnormal levels of other serum enzymes; K59.00 Constipation, unspecified; R33.9 Retention of urine, unspecified; W01.0XXA Fall on same level from slipping, tripping and stumbling without subsequent striking against object, initial encounter; Y92.009 Unspecified place in unspecified non-institutional (private) residence as the place of occurrence of the external cause; Z85.038 Personal history of other malignant neoplasm of large intestine; Z87.891 Personal history of nicotine dependence